=== PATIENT | male | born 1960 | race Hispanic/Latino ===

== ENCOUNTER 2018-06-11 19:49 | Inpatient (IN) | payer OTHER ==
[2018-06-11] MEDS ORDERED: ASPIRIN PO ONE (20:12)
[2018-06-11 20:49] LABS: Basophils # (Auto) 0.1 K/mm3 (0.0-0.1); Basophils % (Auto) 0.5 % (0.0-1.8); Eosinophils # (Auto) 0.1 K/mm3 (0.0-0.4); Eosinophils % (Auto) 0.5 % (0.0-4.3); Hematocrit 39.1 % (35.5-45.6); Hemoglobin 13.6 gm/dl (11.8-15.2); Lymphocytes # (Auto) 2.1 K/mm3 (1.2-5.4); Mean Corpuscular HGB Conc 35 % (32-34); Mean Corpuscular Hemoglobin 30 pg (28-32); Mean Corpuscular Volume 88 fl (84-94); Monocytes # (Auto) 1.4 K/mm3 (0.0-0.8); Monocytes % (Auto) 7.3 % (0.0-7.3); Platelet Count 261 K/mm3 (140-440); Red Blood Count 4.47 M/mm3 (3.65-5.03); Red Cell Distribution Width 13.7 % (13.2-15.2)
[2018-06-11 20:53] LABS: BUN/Creatinine Ratio 11; Blood Urea Nitrogen 10 mg/dL (9-20); Calcium 9.9 mg/dL (8.4-10.2); Hemolysis Index 3
[2018-06-12] MEDS ORDERED: HumuLIN R IV ONE (03:43)
[2018-06-12 05:10] LABS: Albumin 4.3 g/dL (3.9-5); Bilirubin,Direct 0.3 mg/dL (0-0.2)
[2018-06-12] MEDS ORDERED: NACL 0.9% 1000 ML IV ONE (06:26)
[2018-06-12] MEDS ORDERED: SUBLIMAZE IV ONE ×2 (06:27→09:40)
--- NOTE | 2018-06-12 06:28 | Emergency Department Report ---
ED General Adult HPI - General Chief complaint: Chest Pain Stated complaint: ABD PAIN Time Seen by Provider: 06/12/18 03:38 Source: patient, RN notes reviewed, old records reviewed Mode of arrival: Ambulatory Limitations: No Limitations - History of Present Illness Initial comments: This is a 58-year-old male who is unknown to this provider, has a past medical history of triple-vessel coronary artery disease, diabetes, hypertension and seizures. Presents to the ER with a complaint of epigastric and substernal chest pain. The pain is sharp. It is been present over the past 2 days. It increases with palpation and deep inspiration. It decreases with rest. No coughing. No DVT, pulmonary embolus risk factors. No urinary symptoms. No hematemesis or bright red blood per rectum. No urinary symptoms. Some cardiac risk stratification that he is aware of. -: Gradual Location: chest, abdomen Radiation: non-radiation Severity scale (0 -10): 7 Quality: stabbing, aching Consistency: constant Improves with: rest Worsens with: movement Associated Symptoms: chest pain, weakness. denies: confusion - Related Data Home Medications Medication Instructions Recorded Confirmed Last Taken OXcarbazepine [Trileptal] 300 mg PO BID 06/12/18 06/12/18 06/11/18 16:00 amLODIPine [Norvasc] 5 mg PO DAILY 06/12/18 06/12/18 06/10/18 Allergies Allergy/AdvReac Type Severity Reaction Status Date / Time codeine Allergy Unknown Verified 06/11/18 20:05 ED Review of Systems ROS: Stated complaint: ABD PAIN Other details as noted in HPI Constitutional: malaise. denies: fever Eyes: denies: eye discharge ENT: denies: epistaxis Respiratory: denies: shortness of breath Cardiovascular: chest pain Gastrointestinal: abdominal pain Genitourinary: denies: dysuria Musculoskeletal: denies: back pain Skin: denies: lesions Neurological: weakness Psychiatric: denies: anxiety ED Past Medical Hx - Past Medical History Hx Hypertension: Yes Hx Diabetes: Yes Hx Seizures: Yes Additional medical history: CAD - Social History Smoking Status: Never Smoker Substance Use Type: Alcohol - Medications Home Medications: Home Medications Medication Instructions Recorded Confirmed Last Taken Type OXcarbazepine [Trileptal] 300 mg PO BID 06/12/18 06/12/18 06/11/18 16:00 History amLODIPine [Norvasc] 5 mg PO DAILY 06/12/18 06/12/18 06/10/18 History ED Physical Exam - General Limitations: No Limitations General appearance: alert, in no apparent distress - Head Head exam: Present: atraumatic, normocephalic - Eye Eye exam: Present: normal appearance, EOMI. Absent: nystagmus - ENT ENT exam: Present: normal exam, normal orophraynx, mucous membranes moist, normal external ear exam - Neck Neck exam: Present: normal inspection. Absent: tenderness, meningismus - Respiratory Respiratory exam: Present: normal lung sounds bilaterally. Absent: respiratory distress - Cardiovascular Cardiovascular Exam: Present: normal rhythm, tachycardia, normal heart sounds. Absent: systolic murmur, diastolic murmur, rubs, gallop - GI/Abdominal GI/Abdominal exam: Present: soft, tenderness (there is epigastric and right upper quadrant tenderness. there is negative Tafoya sign. There is negative Rovsing sign), normal bowel sounds. Absent: distended, guarding, rebound, rigid , pulsatile mass - Rectal Rectal exam: Present: deferred - Extremities Exam Extremities exam: Present: normal inspection, full ROM, normal capillary refill , other (2+ pulses noted in the bilateral upper, lower extremities. Compartments soft. No long bony tenderness. The pelvis is stable.). Absent: pedal edema, joint swelling, calf tenderness - Back Exam Back exam: Present: normal inspection, full ROM. Absent: tenderness, CVA tenderness (R), paraspinal tenderness, vertebral tenderness - Neurological Exam Neurological exam: Present: alert, oriented X3, CN II-XII intact, other ( Extraocular movements intact. Tongue midline. No facial droop. Facial sensation intact to light touch in the V1, V2, V3 distribution bilaterally. 5 and 5 strength in 4 extremities.. Sensation is intact to light touch in 4 extremities.). Absent: motor sensory deficit - Psychiatric Psychiatric exam: Present: normal affect, normal mood - Skin Skin exam: Present: warm, dry, intact, normal color. Absent: rash ED Course Vital Signs 06/11/18 06/11/18 06/12/18 19:51 20:05 03:30 Temperature 98.3 F 98.2 F Pulse Rate 102 H 102 H 86 Respiratory 20 16 7 L Rate Blood Pressure 143/84 128/86 134/88 O2 Sat by Pulse 98 99 97 Oximetry 06/12/18 06/12/18 06/12/18 03:42 03:46 04:00 Temperature Pulse Rate 98 H 92 H 93 H Respiratory 16 12 13 Rate Blood Pressure 138/80 145/76 O2 Sat by Pulse 98 97 97 Oximetry 06/12/18 06/12/18 06/12/18 04:16 04:30 04:46 Temperature Pulse Rate 90 90 89 Respiratory 21 16 22 Rate Blood Pressure 139/87 134/88 135/85 O2 Sat by Pulse 96 98 97 Oximetry 06/12/18 06/12/18 06/12/18 05:00 05:16 05:30 Temperature Pulse Rate 94 H 96 H 94 H Respiratory 18 18 21 Rate Blood Pressure 130/84 129/87 130/84 O2 Sat by Pulse 97 97 97 Oximetry 06/12/18 06/12/18 06/12/18 05:46 06:00 06:16 Temperature Pulse Rate 92 H 92 H 99 H Respiratory 21 21 13 Rate Blood Pressure 128/81 125/83 129/86 O2 Sat by Pulse 97 97 98 Oximetry - Reevaluation(s) Reevaluation #1: 06/12/18 09:36 Differential diagnosis, including but not limited to: Acute coronary syndrome, GERD, gastritis, pancreatitis, cholecystitis, pneumonia, pulmonary embolus Assessment and plan: 58-year-old male with tachycardia, pleuritic chest pain, left axis deviation, left anterior fascicular block, low risk by well's criteria , non diagnostic laboratory studies with the exception of leukocytosis. CT scan of the chest is negative for acute disease. Also had right upper quadrant pain and tenderness. CT scan of the abdomen and pelvis suggest a cholecystitis. Patient is ruling in for systemic inflammatory response syndrome. There is a delay in fluid administration and a delay in antibiotic administration because patient had a prolonged wait time in the waiting room secondary to extreme volume/acuity/wait time in this emergency department yesterday. Nevertheless, he'll be treated according to the sepsis pathway with ceftriaxone and Flagyl and appropriate IV fluids. His pain was improved with fentanyl. Case was presents to the general surgeon on-call, Dr. Weems, who agrees to see the patient in consultation. Case presented to the Hospital physician, Dr. Andersen, who accepts the patient to medical service 06/12/18 09:44 ED Medical Decision Making - Lab Data Result diagrams: 06/11/18 20:27 06/11/18 20:27 Vital Signs 06/11/18 06/11/18 06/12/18 19:51 20:05 03:30 Temperature 98.3 F 98.2 F Pulse Rate 102 H 102 H 86 Respiratory 20 16 7 L Rate Blood Pressure 143/84 128/86 134/88 O2 Sat by Pulse 98 99 97 Oximetry 06/12/18 06/12/18 06/12/18 03:42 03:46 04:00 Temperature Pulse Rate 98 H 92 H 93 H Respiratory 16 12 13 Rate Blood Pressure 138/80 145/76 O2 Sat by Pulse 98 97 97 Oximetry 06/12/18 06/12/18 06/12/18 04:16 04:30 04:46 Temperature Pulse Rate 90 90 89 Respiratory 21 16 22 Rate Blood Pressure 139/87 134/88 135/85 O2 Sat by Pulse 96 98 97 Oximetry 06/12/18 06/12/18 06/12/18 05:00 05:16 05:30 Temperature Pulse Rate 94 H 96 H 94 H Respiratory 18 18 21 Rate Blood Pressure 130/84 129/87 130/84 O2 Sat by Pulse 97 97 97 Oximetry 06/12/18 06/12/18 06/12/18 05:46 06:00 06:16 Temperature Pulse Rate 92 H 92 H 99 H Respiratory 21 21 13 Rate Blood Pressure 128/81 125/83 129/86 O2 Sat by Pulse 97 97 98 Oximetry Lab Results 06/11/18 06/11/18 06/11/18 Range/Units 20:27 20:27 22:55 WBC 19.2 H (4.5-11.0) K/mm3 RBC 4.47 (3.65-5.03) M/mm3 Hgb 13.6 (11.8-15.2) gm/dl Hct 39.1 (35.5-45.6) % MCV 88 (84-94) fl MCH 30 (28-32) pg MCHC 35 H (32-34) % RDW 13.7 (13.2-15.2) % Plt Count 261 (140-440) K/mm3 Lymph % (Auto) 11.0 L (13.4-35.0) % [place] % (Auto) 7.3 (0.0-7.3) % Eos % (Auto) 0.5 (0.0-4.3) % Baso % (Auto) 0.5 (0.0-1.8) % Lymph # 2.1 (1.2-5.4) K/mm3 [place] # 1.4 H (0.0-0.8) K/mm3 Eos # 0.1 (0.0-0.4) K/mm3 Baso # 0.1 (0.0-0.1) K/mm3 Seg Neutrophils % 80.7 H (40.0-70.0) % Seg Neutrophils # 15.5 H (1.8-7.7) K/mm3 Sodium 135 L (137-145) mmol/L Potassium 4.2 (3.6-5.0) mmol/L Chloride 93.2 L (98-107) mmol/L Carbon Dioxide 26 (22-30) mmol/L Anion Gap 20 mmol/L BUN 10 (9-20) mg/dL Creatinine 0.9 (0.8-1.5) mg/dL Estimated GFR > 60 ml/min BUN/Creatinine Ratio 11 % Glucose 467 H (75-100) mg/dL POC Glucose (70-105) Lactic Acid (0.7-2.0) mmol/L Calcium 9.9 (8.4-10.2) mg/dL Total Bilirubin (0.1-1.2) mg/dL Direct Bilirubin (0-0.2) mg/dL Indirect Bilirubin mg/dL AST (5-40) units/L ALT (7-56) units/L Alkaline Phosphatase (35-129) units/L Total Creatine Kinase (55-170) units/L Troponin T < 0.010 < 0.010 (0.00-0.029) ng/mL NT-Pro-B Natriuret Pep (0-900) pg/mL Total Protein (6.3-8.2) g/dL Albumin (3.9-5) g/dL Albumin/Globulin Ratio % Lipase (13-60) units/L 06/12/18 06/12/18 06/12/18 Range/Units 02:44 03:42 03:46 WBC (4.5-11.0) K/mm3 RBC (3.65-5.03) M/mm3 Hgb (11.8-15.2) gm/dl Hct (35.5-45.6) % MCV (84-94) fl MCH (28-32) pg MCHC (32-34) % RDW (13.2-15.2) % Plt Count (140-440) K/mm3 Lymph % (Auto) (13.4-35.0) % [place] % (Auto) (0.0-7.3) % Eos % (Auto) (0.0-4.3) % Baso % (Auto) (0.0-1.8) % Lymph # (1.2-5.4) K/mm3 [place] # (0.0-0.8) K/mm3 Eos # (0.0-0.4) K/mm3 Baso # (0.0-0.1) K/mm3 Seg Neutrophils % (40.0-70.0) % Seg Neutrophils # (1.8-7.7) K/mm3 Sodium (137-145) mmol/L Potassium (3.6-5.0) mmol/L Chloride (98-107) mmol/L Carbon Dioxide (22-30) mmol/L Anion Gap mmol/L BUN (9-20) mg/dL Creatinine (0.8-1.5) mg/dL Estimated GFR ml/min BUN/Creatinine Ratio % Glucose (75-100) mg/dL POC Glucose 356 H (70-105) Lactic Acid (0.7-2.0) mmol/L Calcium (8.4-10.2) mg/dL Total Bilirubin 1.40 H (0.1-1.2) mg/dL Direct Bilirubin 0.3 H (0-0.2) mg/dL Indirect Bilirubin 1.1 mg/dL AST 12 (5-40) units/L ALT 12 (7-56) units/L Alkaline Phosphatase 64 (35-129) units/L Total Creatine Kinase 45 L (55-170) units/L Troponin T < 0.010 (0.00-0.029) ng/mL NT-Pro-B Natriuret Pep 41.86 (0-900) pg/mL Total Protein 6.5 (6.3-8.2) g/dL Albumin 4.3 (3.9-5) g/dL Albumin/Globulin Ratio 2.0 % Lipase 32 (13-60) units/L 06/12/18 06/12/18 06/12/18 Range/Units 06:40 06:42 08:57 WBC (4.5-11.0) K/mm3 RBC (3.65-5.03) M/mm3 Hgb (11.8-15.2) gm/dl Hct (35.5-45.6) % MCV (84-94) fl MCH (28-32) pg MCHC (32-34) % RDW (13.2-15.2) % Plt Count (140-440) K/mm3 Lymph % (Auto) (13.4-35.0) % [place] % (Auto) (0.0-7.3) % Eos % (Auto) (0.0-4.3) % Baso % (Auto) (0.0-1.8) % Lymph # (1.2-5.4) K/mm3 [place] # (0.0-0.8) K/mm3 Eos # (0.0-0.4) K/mm3 Baso # (0.0-0.1) K/mm3 Seg Neutrophils % (40.0-70.0) % Seg Neutrophils # (1.8-7.7) K/mm3 Sodium (137-145) mmol/L Potassium (3.6-5.0) mmol/L Chloride (98-107) mmol/L Carbon Dioxide (22-30) mmol/L Anion Gap mmol/L BUN (9-20) mg/dL Creatinine (0.8-1.5) mg/dL Estimated GFR ml/min BUN/Creatinine Ratio % Glucose (75-100) mg/dL POC Glucose 325 H (70-105) Lactic Acid 2.90 H* 1.90 (0.7-2.0) mmol/L Calcium (8.4-10.2) mg/dL Total Bilirubin (0.1-1.2) mg/dL Direct Bilirubin (0-0.2) mg/dL Indirect Bilirubin mg/dL AST (5-40) units/L ALT (7-56) units/L Alkaline Phosphatase (35-129) units/L Total Creatine Kinase (55-170) units/L Troponin T (0.00-0.029) ng/mL NT-Pro-B Natriuret Pep (0-900) pg/mL Total Protein (6.3-8.2) g/dL Albumin (3.9-5) g/dL Albumin/Globulin Ratio % Lipase (13-60) units/L - EKG Data -: EKG Interpreted by Me - EKG Data When compared to previous EKG there are: previous EKG unavailable 06/12/18 09:40 Normal sinus, 97 bpm, left axis deviation, incomplete right bundle-branch block , left anterior fascicular block, QTC prolonged, abnormal EKG, not a stemi - Radiology Data Radiology results: report reviewed, image reviewed X-ray CT scan of the chest is negative for acute disease. CT scan of the abdomen and pelvis suggest cholecystitis. Critical care attestation.: If time is entered above; I have spent that time in minutes in the direct care of this critically ill patient, excluding procedure time. ED Disposition Clinical Impression: SIRS (systemic inflammatory response syndrome) Chest pain Qualifiers: Chest pain type: other chest pain Qualified Code(s): R07.89 - Other chest pain Disposition: OP ADMIT IP TO THIS HOSP Is pt being admited?: Yes Condition: Good Instructions: Chest Pain (ED) Referrals: PRIMARY CARE, [Primary Care Provider] - 3-5 Days
[2018-06-12] MEDS ORDERED: ROCEPHIN/NS 1 GM/50 ML 1 GM/50 ML BAG IV NR (07:20)
--- NOTE | 2018-06-12 07:38 | XRay Report ---
ROUTINE CHEST, TWO VIEWS: HISTORY: chest pain, STIR S.. The trachea, heart, mediastinal contour, and lung [place] are unremarkable. Mild scoliosis and degenerative changes in the thoracic spine are noted. IMPRESSION: No acute cardiopulmonary process identified.
--- NOTE | 2018-06-12 09:02 | Cat Scan Report ---
CTA CHEST: HISTORY: chest pain. COMPARISON: none. TECHNIQUE: Helical CT in 1.25mm intervals following IV contrast. Pulmonary embolus protocol. Sagittal and coronal reformatted images. Rotational MIP images. FINDINGS: Contrast bolus is satisfactory. No pulmonary embolus is identified. Thyroid gland: There are a few tiny thyroid hypodensities bilaterally which probably represents cysts. Tracheobronchial tree: Normal. Esophagus: Normal. Heart: Normal. Pericardium: Normal. Mediastinum: Normal. Lung Pires: Normal. Pleural Spaces: Normal. Musculoskeletal: Mild scoliosis and thoracic spondylosis are noted. IMPRESSION: No evidence for pulmonary embolus. Unremarkable CT chest with contrast.
--- NOTE | 2018-06-12 09:06 | Cat Scan Report ---
CT ABDOMEN PELVIS WITH CONTRAST: HISTORY: abdominal pain. COMPARISON: none. TECHNIQUE: Helical CT in 1.25mm intervals following IV contrast. Sagittal and coronal reconstructions. FINDINGS: Liver: Normal. Biliary system: The gallbladder is mildly dilated with small surrounding pericholecystic fluid. No calcified gallstones are identified. The common bile duct and intrahepatic ducts are normal caliber. Pancreas: Normal. Spleen: Normal. Kidneys/ureters/bladder: There are a few scattered simple renal cysts measuring up to 2 cm. No hydronephrosis or hypervascular mass. The ureters and bladder are unremarkable. Borderline enlargement of the prostate gland. Adrenal glands: Normal. Aorta: Mild distal calcifications. No aneurysm, stenosis or dissection. Intestines: Unremarkable given no oral contrast was administered. Appendix: Not identified, correlate with surgical history. Pelvic viscera: Normal. Ascites: None. Adenopathy: None. Musculoskeletal: Mild lumbar spondylosis. Small left inguinal hernia containing fat. IMPRESSION: Findings concerning for acute cholecystitis. Consider correlation with ultrasound and possibly HIDA scan.
[2018-06-12] MEDS ORDERED: ROCEPHIN/NS 1 GM/50 ML 1 GM/50 ML BAG IV ONE (09:25)
[2018-06-12 09:59] LABS: Bilirubin,Urine NEG (Negative); Blood,Urine NEG (Negative); Color,Urine Yellow (Yellow); Mucus,Urine FEW /HPF; Protein,Urine <15 mg/dL mg/dL (Negative); Urobilinogen,Urine < 2.0 mg/dL (<2.0)
[2018-06-12] MEDS ORDERED: FLAGYL 500 MG/100 ML 500 MG/100 ML BAG IV SCH (10:00)
--- NOTE | 2018-06-12 10:59 | Ultrasound Report ---
ULTRASOUND ABDOMEN LIMITED: TECHNIQUE: Transabdominal ultrasound with color Doppler interrogation. HISTORY: right upper quadrant abdominal pain, cholecystitis. COMPARISON: CT abdomen pelvis with contrast performed the same day. FINDINGS: LIVER: Normal. BILIARY SYSTEM: The gallbladder is mildly dilated with wall thickening measuring up to 7 mm. The gallbladder is packed with non-shadowing debris consistent with sludge. No shadowing gallstones are identified. Small pericholecystic fluid. The CBD measures 4 mm. The technologist noted a positive Tafoya's sign. PANCREAS: Normal. RIGHT KIDNEY: 12 cm in length. 2 right renal cysts are identified measuring 2.1 cm and 2.4 cm. PROXIMAL AORTA: Normal. ASCITES: None. IMPRESSION: Findings consistent with acute cholecystitis. See above.
[2018-06-12] MEDS ORDERED: NACL 0.9% 1000 ML 1,000 ML ONE ×2 (11:22→12:57)
[2018-06-12] MEDS ORDERED: APRESOLINE IV PRN (11:44)
[2018-06-12] MEDS ORDERED: D50W (25GM) Syringe IV PRN (11:45)
--- NOTE | 2018-06-12 11:48 | History and Physical Report ---
History of Present Illness Date of examination: 06/12/18 Chief complaint: 'Am in pain" History of present illness: Patient is a 58 y/o male with poorly controlled DM II, HTN, seizure disorder, 3 Vessel CAD, who has been out of his Metformin for more than 1 month, presented to [facility] with c/o 3 day h/o RUQ abd pain, 9/10 , sharp, worsened by deep breathing , with radiation to the Epigastrum, temporarily relieved by IV Fentanyl. Associated with Nausea, but no vomiting. Patient reports h/o CAD but not on any Cholesterol meds. Intermittently takes Aspirin. Denies fever, but admitted to generalized weakness. ER Course CT abd pelvis Abd Ultrasound WBC of 19k Multiple doses of Fentanyl ordered Surgery consulted by ED. IV abx given Referred for admission to the hospital medicine service. Past History Past Medical History: CAD, diabetes, hypertension, seizures Past Surgical History: Other (tooth extraction as a teenager.) Medications and Allergies Allergies Allergy/AdvReac Type Severity Reaction Status Date / Time codeine Allergy Unknown Verified 06/11/18 20:05 Home Medications Medication Instructions Recorded Confirmed Last Taken Type OXcarbazepine [Trileptal] 300 mg PO BID 06/12/18 06/12/18 06/11/18 16:00 History amLODIPine [Norvasc] 5 mg PO DAILY 06/12/18 06/12/18 06/10/18 History Active Meds: Active Medications Dextrose (D50w (25gm) Syringe) 50 ml IV PRN PRN PRN Reason: Hypoglycemia Heparin Sodium (Porcine) (Heparin) 5,000 unit SUB-Q Q8HR OSCAR Hydralazine HCl (Apresoline) 5 mg IV Q30MIN PRN PRN Reason: Blood Pressure Metronidazole (Flagyl 500 Mg/100 Ml) 500 mg in 100 mls @ 200 mls/hr IV ONCE OSCAR ; Protocol Piperacillin Sod/Tazobactam Sod (Zosyn/Ns 4.5gm/100ml) 4.5 gm in 100 mls @ 200 mls/hr IV Q8HR OSCAR; Protocol Levetiracetam 750 mg/ Dextrose 107.5 mls @ 400 mls/hr IV Q12H OSCAR Levofloxacin/Dextrose (Levaquin 750mg/150ml) 750 mg in 150 mls @ 100 mls/hr IV Q24HR OSCAR; Protocol Insulin Glargine (Lantus) 10 units SUB-Q QHS OSCAR Insulin Human Lispro (Humalog) 0 unit SUB-Q Q6HR OSCAR; Protocol Morphine Sulfate (Morphine) 2 mg IV Q4H PRN PRN Reason: Pain, Moderate (4-6) Review of Systems Constitutional: anorexia, weakness, poor appetite Ears, nose, mouth and throat: no nasal congestion, no bleeding gums, no dental pain, no mouth pain, no dysphagia, no hoarseness Cardiovascular: chest pain, high blood pressure, no palpitations, no rapid/ irregular heart beat, no edema, no claudication, no phlebitis Respiratory: pain on inspiration, no shortness of breath, no congestion, no pleurisy, no pain Gastrointestinal: abdominal pain, nausea, diarrhea, loss of appetite Genitourinary Male: no hematuria, no urinary frequency, no urinary hesitancy, no decreased libido, no testicular pain, no difficulties fathering child Rectal: no bleeding, no hemorrhoids Musculoskeletal: no neck stiffness, no shooting arm pain, no muscle weakness, no gait dysfunction Integumentary: no rash, no redness, no lesions, no darkening of skin Neurological: no transient paralysis, no numbness, no tingling, no headaches, no migraines, no convulsions Psychiatric: no memory loss, no sleep disturbances, no hypersomnia, no change in appetite, no difficulties concentrating Endocrine: no cold intolerance, no heat intolerance, no deepening of the voice, no thyroid mass, no palpatations Hematologic/Lymphatic: no easy bruising, no lymphedema Allergic/Immunologic: no allergic rhinitis, no persistent infections, no anaphylaxis Exam - Constitutional Vitals: Temp Pulse Resp BP Pulse Ox 98.7 F 90 11 L 147/81 97 06/12/18 09:00 06/12/18 11:30 06/12/18 11:30 06/12/18 11:30 06/12/18 11:30 General appearance: Present: mild distress, well-nourished - EENT Eyes: Present: PERRL, EOM intact, scleral icterus ENT: hearing intact, clear oral mucosa - Neck Neck: Present: supple, normal ROM - Respiratory Respiratory: bilateral: CTA, negative: rales, rhonchi, wheezing - Cardiovascular Rhythm: regular Heart Sounds: Present: S1 & S2 - Extremities Extremities: no ischemia, pulses intact, pulses symmetrical, No edema Peripheral Pulses: within normal limits - Abdominal General gastrointestinal: Present: soft, tender (RUQ tenderness, with Tafoya's sign), normal bowel sounds Male genitourinary: Present: deferred - Rectal Rectal Exam: deferred - Integumentary Integumentary: Present: clear, warm, dry - Musculoskeletal Musculoskeletal: strength equal bilaterally, generalized weakness - Psychiatric Psychiatric: appropriate mood/affect, intact judgment & insight, memory intact - Neurologic Neurologic: CNII-XII intact, moves all extremities - Allied Health Allied health notes reviewed: nursing Results - Labs CBC & Chem 7: 06/11/18 20:27 06/11/18 20:27 Labs: Laboratory Last Values WBC 19.2 K/mm3 (4.5-11.0) H 06/11/18 20:27 RBC 4.47 M/mm3 (3.65-5.03) 06/11/18 20:27 Hgb 13.6 gm/dl (11.8-15.2) 06/11/18 20:27 Hct 39.1 % (35.5-45.6) 06/11/18 20:27 MCV 88 fl (84-94) 06/11/18 20:27 MCH 30 pg (28-32) 06/11/18 20:27 MCHC 35 % (32-34) H 06/11/18 20:27 RDW 13.7 % (13.2-15.2) 06/11/18 20:27 Plt Count 261 K/mm3 (140-440) 06/11/18 20:27 Lymph % (Auto) 11.0 % (13.4-35.0) L 06/11/18 20:27 [place] % (Auto) 7.3 % (0.0-7.3) 06/11/18 20:27 Eos % (Auto) 0.5 % (0.0-4.3) 06/11/18 20:27 Baso % (Auto) 0.5 % (0.0-1.8) 06/11/18 20:27 Lymph # 2.1 K/mm3 (1.2-5.4) 06/11/18 20:27 [place] # 1.4 K/mm3 (0.0-0.8) H 06/11/18 20:27 Eos # 0.1 K/mm3 (0.0-0.4) 06/11/18 20:27 Baso # 0.1 K/mm3 (0.0-0.1) 06/11/18 20:27 Seg Neutrophils % 80.7 % (40.0-70.0) H 06/11/18 20:27 Seg Neutrophils # 15.5 K/mm3 (1.8-7.7) H 06/11/18 20:27 Sodium 135 mmol/L (137-145) L 06/11/18 20:27 Potassium 4.2 mmol/L (3.6-5.0) 06/11/18 20:27 Chloride 93.2 mmol/L (98-107) L 06/11/18 20:27 Carbon Dioxide 26 mmol/L (22-30) 06/11/18 20:27 Anion Gap 20 mmol/L 06/11/18 20:27 BUN 10 mg/dL (9-20) 06/11/18 20:27 Creatinine 0.9 mg/dL (0.8-1.5) 06/11/18 20:27 Estimated GFR > 60 ml/min 06/11/18 20:27 BUN/Creatinine Ratio 11 % 06/11/18 20:27 Glucose 467 mg/dL (75-100) H 06/11/18 20:27 POC Glucose 325 (70-105) H 06/12/18 06:42 Lactic Acid 1.90 mmol/L (0.7-2.0) 06/12/18 08:57 Calcium 9.9 mg/dL (8.4-10.2) 06/11/18 20:27 Total Bilirubin 1.40 mg/dL (0.1-1.2) H 06/12/18 03:46 Direct Bilirubin 0.3 mg/dL (0-0.2) H 06/12/18 03:46 Indirect Bilirubin 1.1 mg/dL 06/12/18 03:46 AST 12 units/L (5-40) 06/12/18 03:46 ALT 12 units/L (7-56) 06/12/18 03:46 Alkaline Phosphatase 64 units/L (35-129) 06/12/18 03:46 Total Creatine Kinase 45 units/L (55-170) L 06/12/18 03:46 Troponin T < 0.010 ng/mL (0.00-0.029) 06/12/18 02:44 NT-Pro-B Natriuret Pep 41.86 pg/mL (0-900) 06/12/18 03:46 Total Protein 6.5 g/dL (6.3-8.2) 06/12/18 03:46 Albumin 4.3 g/dL (3.9-5) 06/12/18 03:46 Albumin/Globulin Ratio 2.0 % 06/12/18 03:46 Lipase 32 units/L (13-60) 06/12/18 03:46 Urine Color Yellow (Yellow) 06/12/18 09:40 Urine Turbidity Clear (Clear) 06/12/18 09:40 Urine pH 5.0 (5.0-7.0) 06/12/18 09:40 Ur Specific [place] 1.040 (1.003-1.030) H 06/12/18 09:40 Urine Protein <15 mg/dl mg/dL (Negative) 06/12/18 09:40 Urine Glucose (UA) >=500 mg/dL (Negative) 06/12/18 09:40 Urine Ketones Tr mg/dL (Negative) 06/12/18 09:40 Urine Blood Neg (Negative) 06/12/18 09:40 Urine Nitrite Neg (Negative) 06/12/18 09:40 Urine Bilirubin Neg (Negative) 06/12/18 09:40 Urine Urobilinogen < 2.0 mg/dL (<2.0) 06/12/18 09:40 Ur Leukocyte Esterase Neg (Negative) 06/12/18 09:40 Urine WBC (Auto) 2.0 /HPF (0.0-6.0) 06/12/18 09:40 Urine RBC (Auto) 2.0 /HPF (0.0-6.0) 06/12/18 09:40 Urine Mucus Few /HPF 06/12/18 09:40 - Imaging and Cardiology Chest x-ray: report reviewed CT scan - abdomen: report reviewed US - abdomen: report reviewed Assessment and Plan Assessment and plan: Assessment Sepsis 2/2 Acute Cholecystitis Acute Cholecystitis Uncontrolled DM II with hyperglycemia HTN, essen, chronic Seizure disorder Noncompliant with Metformin 3 Vessel CAD RUQ pain Plan admit inpt to med surg with remote Tele monitoring HbAI1 Optimal pain control IV abx am labs NPO status IV Keppra while NPO to restart home AED upon d/c Surgery consult, done in the ED Close monitoring Cardio consult lipid panel Will need high intensity Lipitor 80mg po qd prior to d/c d/w pt, questions were answered to the best of my ability Further pt mgt per hospital course. d/w RN More than 35 mins spent Advance Directives: No VTE prophylaxis?: Chemical Plan of care discussed with patient/family: Yes
[2018-06-12] MEDS ORDERED: ZOFRAN ONE (13:22)
[2018-06-12] MEDS: KEPPRA 750 MG in D5W 100 ML IV SCH (13:25)
[2018-06-12 13:31] LABS: Chol/HDL Ratio 3.31 %
--- NOTE | 2018-06-12 13:36 | Consultation ---
History of Present Illness Consult date: 06/12/18 Chief complaint: Abdominal pain - History of present illness History of present illness: 58-year-old male with a past medical history of CAD, seizure disorder, diabetes presents to the emergency room with complaints of right upper quadrant abdominal pain. The pain is sharp, started in the epigastrium and radiated to the right upper quadrant and now to bilateral shoulder blades. He states the pain started 3 days ago and has gradually gotten worse, prompting his visit to the emergency room. He has never had pain like this in the past. He states he had a ham sandwich for lunch and the pain started shortly thereafter. The pain is associated with nausea but no vomiting. He denies fevers, chills. He is having loose stools, 3-4 per day. No sick contacts or recent travel. The abdominal pain is made better with the pain medications in the emergency room, but this will leave only last for about 10 minutes. Past History Past Medical History: CAD, diabetes, hypertension, hyperlipidemia, seizures Past Surgical History: Other (wisdom teeth extraction) Social history: alcohol abuse (social), full code. denies: smoking, prescription drug abuse, IV drug use Family history: CAD Medications and Allergies Allergies Allergy/AdvReac Type Severity Reaction Status Date / Time codeine Allergy Unknown Verified 06/11/18 20:05 Home Medications Medication Instructions Recorded Confirmed Last Taken Type OXcarbazepine [Trileptal] 300 mg PO BID 06/12/18 06/12/18 06/11/18 16:00 History amLODIPine [Norvasc] 5 mg PO DAILY 06/12/18 06/12/18 06/10/18 History Active Meds: Active Medications Dextrose (D50w (25gm) Syringe) 50 ml IV PRN PRN PRN Reason: Hypoglycemia Heparin Sodium (Porcine) (Heparin) 5,000 unit SUB-Q Q8HR OSACR Hydralazine HCl (Apresoline) 5 mg IV Q30MIN PRN PRN Reason: Blood Pressure Metronidazole (Flagyl 500 Mg/100 Ml) 500 mg in 100 mls @ 200 mls/hr IV ONCE OSCAR ; Protocol Piperacillin Sod/Tazobactam Sod (Zosyn/Ns 4.5gm/100ml) 4.5 gm in 100 mls @ 200 mls/hr IV Q8HR OSCAR; Protocol Levetiracetam 750 mg/ Dextrose 107.5 mls @ 400 mls/hr IV Q12H OSCAR Levofloxacin/Dextrose (Levaquin 750mg/150ml) 750 mg in 150 mls @ 100 mls/hr IV Q24HR OSCAR; Protocol Insulin Glargine (Lantus) 10 units SUB-Q QHS OSCAR Insulin Human Lispro (Humalog) 0 unit SUB-Q Q6HR OSCAR; Protocol Morphine Sulfate (Morphine) 2 mg IV Q4H PRN PRN Reason: Pain, Moderate (4-6) Review of Systems All systems: negative (10 point review systems was performed and negative except for that listed in HPI) Exam Vital Signs Temp Pulse Resp BP Pulse Ox 98.3 F 102 H 20 143/84 98 06/11/18 19:51 06/11/18 19:51 06/11/18 19:51 06/11/18 19:51 06/11/18 19:51 Narrative exam: Gen.: Awake, alert, oriented 3. Appears to be uncomfortable ENT: No scleral icterus or conjunctival pallor CV: S1, S2 present Respiratory: No audible wheezes Abdomen: Soft, nondistended, positive tenderness to palpation in the epigastrium , RUQ. + Voluntary guarding. No rebound no rigidity Extremities: No clubbing, cyanosis, edema Results - Labs 06/11/18 20:27 06/11/18 20:27 Abnormal lab results 06/11/18 06/11/18 06/12/18 Range/Units 20:27 20:27 03:42 WBC 19.2 H (4.5-11.0) K/mm3 MCHC 35 H (32-34) % Lymph % (Auto) 11.0 L (13.4-35.0) % [place] # 1.4 H (0.0-0.8) K/mm3 Seg Neutrophils % 80.7 H (40.0-70.0) % Seg Neutrophils # 15.5 H (1.8-7.7) K/mm3 Sodium 135 L (137-145) mmol/L Chloride 93.2 L (98-107) mmol/L Glucose 467 H (75-100) mg/dL POC Glucose 356 H (70-105) Hemoglobin A1c (4-6) % Lactic Acid (0.7-2.0) mmol/L Total Bilirubin (0.1-1.2) mg/dL Direct Bilirubin (0-0.2) mg/dL Total Creatine Kinase (55-170) units/L Ur Specific [place] (1.003-1.030) 06/12/18 06/12/18 06/12/18 Range/Units 03:46 06:40 06:42 WBC (4.5-11.0) K/mm3 MCHC (32-34) % Lymph % (Auto) (13.4-35.0) % [place] # (0.0-0.8) K/mm3 Seg Neutrophils % (40.0-70.0) % Seg Neutrophils # (1.8-7.7) K/mm3 Sodium (137-145) mmol/L Chloride (98-107) mmol/L Glucose (75-100) mg/dL POC Glucose 325 H (70-105) Hemoglobin A1c (4-6) % Lactic Acid 2.90 H* (0.7-2.0) mmol/L Total Bilirubin 1.40 H (0.1-1.2) mg/dL Direct Bilirubin 0.3 H (0-0.2) mg/dL Total Creatine Kinase 45 L (55-170) units/L Ur Specific [place] (1.003-1.030) 06/12/18 06/12/18 Range/Units 09:40 12:49 WBC (4.5-11.0) K/mm3 MCHC (32-34) % Lymph % (Auto) (13.4-35.0) % [place] # (0.0-0.8) K/mm3 Seg Neutrophils % (40.0-70.0) % Seg Neutrophils # (1.8-7.7) K/mm3 Sodium (137-145) mmol/L Chloride (98-107) mmol/L Glucose (75-100) mg/dL POC Glucose (70-105) Hemoglobin A1c 9.8 H (4-6) % Lactic Acid (0.7-2.0) mmol/L Total Bilirubin (0.1-1.2) mg/dL Direct Bilirubin (0-0.2) mg/dL Total Creatine Kinase (55-170) units/L Ur Specific [place] 1.040 H (1.003-1.030) Diabetes panel 06/11/18 06/12/18 06/12/18 Range/Units 20:27 03:46 12:49 Sodium 135 L (137-145) mmol/L Potassium 4.2 (3.6-5.0) mmol/L Chloride 93.2 L (98-107) mmol/L Carbon Dioxide 26 (22-30) mmol/L BUN 10 (9-20) mg/dL Creatinine 0.9 (0.8-1.5) mg/dL Glucose 467 H (75-100) mg/dL Hemoglobin A1c 9.8 H (4-6) % Calcium 9.9 (8.4-10.2) mg/dL AST 12 (5-40) units/L ALT 12 (7-56) units/L Alkaline Phosphatase 64 (35-129) units/L Total Protein 6.5 (6.3-8.2) g/dL Albumin 4.3 (3.9-5) g/dL Triglycerides (2-149) mg/dL HDL Cholesterol (40-59) mg/dL 06/12/18 Range/Units 12:49 Sodium (137-145) mmol/L Potassium (3.6-5.0) mmol/L Chloride (98-107) mmol/L Carbon Dioxide (22-30) mmol/L BUN (9-20) mg/dL Creatinine (0.8-1.5) mg/dL Glucose (75-100) mg/dL Hemoglobin A1c (4-6) % Calcium (8.4-10.2) mg/dL AST (5-40) units/L ALT (7-56) units/L Alkaline Phosphatase (35-129) units/L Total Protein (6.3-8.2) g/dL Albumin (3.9-5) g/dL Triglycerides 83 (2-149) mg/dL HDL Cholesterol 44 (40-59) mg/dL Calcium panel 06/11/18 06/12/18 Range/Units 20:27 03:46 Calcium 9.9 (8.4-10.2) mg/dL Albumin 4.3 (3.9-5) g/dL Pituitary panel 06/11/18 Range/Units 20:27 Sodium 135 L (137-145) mmol/L Potassium 4.2 (3.6-5.0) mmol/L Chloride 93.2 L (98-107) mmol/L Carbon Dioxide 26 (22-30) mmol/L BUN 10 (9-20) mg/dL Creatinine 0.9 (0.8-1.5) mg/dL Glucose 467 H (75-100) mg/dL Calcium 9.9 (8.4-10.2) mg/dL Adrenal panel 06/11/18 06/12/18 Range/Units 20:27 03:46 Sodium 135 L (137-145) mmol/L Potassium 4.2 (3.6-5.0) mmol/L Chloride 93.2 L (98-107) mmol/L Carbon Dioxide 26 (22-30) mmol/L BUN 10 (9-20) mg/dL Creatinine 0.9 (0.8-1.5) mg/dL Glucose 467 H (75-100) mg/dL Calcium 9.9 (8.4-10.2) mg/dL Total Bilirubin 1.40 H (0.1-1.2) mg/dL AST 12 (5-40) units/L ALT 12 (7-56) units/L Alkaline Phosphatase 64 (35-129) units/L Total Protein 6.5 (6.3-8.2) g/dL Albumin 4.3 (3.9-5) g/dL - Imaging CT scan - abdomen: report reviewed, image reviewed CT scan - pelvis: report reviewed, image reviewed US - abdomen: report reviewed, image reviewed Assessment and Plan 58 yo M with 1. acute cholecystitis 2. sepsis secondary to #1 3. diabetes Plan: 1. admit to hospitalist service 2. NPO except meds/ice chips 3. IVF 4. IV abx - zosyn. ceftriaxone and flagyl given in ER 5. pain and nausea control prn 6. repeat CBC, CMP, bilis in am 7. Request cardiology consult for preop risk assessment. Patient has cardiac history, severe 3 vessel cardiac disease 8. DVT ppx 9. ok to resume PO anti seizure meds with sip of water 10. eventual cholecystectomy this admission Thank you for this consultation, please call with questions or concerns.
[2018-06-12] MEDS: HEPARIN SUB-Q SCH ×2 (13:42→21:06)
[2018-06-12] MEDS: MORPHINE IV PRN ×3 (13:45→23:31)
[2018-06-12] MEDS: HumaLOG SUB-Q SCH ×2 (13:54→18:30)
[2018-06-12] MEDS ORDERED: NACL 0.9% 1000 ML 1,000 ML IV SCH (15:00)
[2018-06-12] MEDS: ZOSYN/NS 4.5GM/100ML 4.5 GM/100 ML VIAL IV SCH ×2 (16:00→21:03)
[2018-06-12] MEDS: LANTUS SUB-Q SCH (21:12)
[2018-06-12] MEDS: ZOFRAN IV PRN (21:22)
[2018-06-13] MEDS: HumaLOG SUB-Q SCH ×4 (00:10→17:53)
[2018-06-13] MEDS: KEPPRA 750 MG in D5W 100 ML IV SCH ×2 (00:59→12:30)
[2018-06-13] MEDS: REGLAN IV PRN ×2 (01:00→10:08)
[2018-06-13] MEDS: HEPARIN SUB-Q SCH ×3 (05:07→22:22)
[2018-06-13] MEDS: ZOSYN/NS 4.5GM/100ML 4.5 GM/100 ML VIAL IV SCH ×3 (05:07→22:21)
[2018-06-13] MEDS: ZOFRAN IV PRN ×2 (05:16→20:20)
[2018-06-13] MEDS: MORPHINE IV PRN ×2 (05:16→20:27)
[2018-06-13 06:28] LABS: Basophils % (Auto) 0.2 % (0.0-1.8); Hematocrit 34.7 % (35.5-45.6); Hemoglobin 12.1 gm/dl (11.8-15.2); Lymphocytes # (Auto) 1.2 K/mm3 (1.2-5.4); Lymphocytes % (Auto) 5.9 % (13.4-35.0); Mean Corpuscular HGB Conc 35 % (32-34); Mean Corpuscular Hemoglobin 31 pg (28-32); Mean Corpuscular Volume 88 fl (84-94); Monocytes # (Auto) 1.4 K/mm3 (0.0-0.8); Monocytes % (Auto) 7.2 % (0.0-7.3); Platelet Count 198 K/mm3 (140-440); Red Blood Count 3.96 M/mm3 (3.65-5.03); Red Cell Distribution Width 13.3 % (13.2-15.2)
[2018-06-13 07:47] LABS: Alanine Aminotransferase 56 units/L (7-56); Albumin 3.3 g/dL (3.9-5); BUN/Creatinine Ratio 11; Bilirubin,Direct 0.4 mg/dL (0-0.2); Blood Urea Nitrogen 8 mg/dL (9-20); Calcium 8.6 mg/dL (8.4-10.2); Hemolysis Index 0
--- NOTE | 2018-06-13 09:23 | Consultation ---
History of Present Illness Consult date: 06/13/18 Consult reason: pre op evaluation History of present illness: This is a 58 year old male who presented with nausea, vomiting and abdominal pain admitted with sepsis and acute cholecystitis. He is awaiting gallbladder surgery. A consultation was requested for preoperative cardiac assessment. The patient has a history of Diabetes. There is no prior cardiac history or recent workup. He has no chest pain, no shortness of breath, no palpitations and no lower extremity edema. His 12 lead ECG is a sinus rhythm with left anterior fascicular block. Past History Past Medical History: CAD, diabetes, hypertension, seizures Past Surgical History: Other (tooth extraction as a teenager.) Social history: alcohol abuse (social), full code. denies: smoking, prescription drug abuse, IV drug use Family history: CAD Medications and Allergies Allergies Allergy/AdvReac Type Severity Reaction Status Date / Time codeine Allergy Unknown Verified 06/11/18 20:05 Home Medications Medication Instructions Recorded Confirmed Last Taken Type OXcarbazepine [Trileptal] 300 mg PO BID 06/12/18 06/12/18 06/11/18 16:00 History amLODIPine [Norvasc] 5 mg PO DAILY 06/12/18 06/12/18 06/10/18 History Active Meds: Active Medications Dextrose (D50w (25gm) Syringe) 50 ml IV PRN PRN PRN Reason: Hypoglycemia Heparin Sodium (Porcine) (Heparin) 5,000 unit SUB-Q Q8HR OSCAR Last Admin: 06/13/18 05:07 Dose: 5,000 unit Hydralazine HCl (Apresoline) 5 mg IV Q30MIN PRN PRN Reason: Blood Pressure Piperacillin Sod/Tazobactam Sod (Zosyn/Ns 4.5gm/100ml) 4.5 gm in 100 mls @ 200 mls/hr IV Q8HR OSCAR; Protocol Last Admin: 06/13/18 05:07 Dose: 200 mls/hr Levetiracetam 750 mg/ Dextrose 107.5 mls @ 400 mls/hr IV Q12H OSCAR Last Admin: 06/13/18 00:59 Dose: 400 mls/hr Potassium Chloride/Sodium Chloride (Ns/Kcl 20meq) 20 meq in 1,000 mls @ 125 mls /hr IV DIRECT OSCAR Potassium Chloride (Kcl 10meq/100ml) 10 meq in 100 mls @ 100 mls/hr IV Q1H OSCAR Stop: 06/13/18 12:59 Insulin Glargine (Lantus) 10 units SUB-Q QHS OSCAR Last Admin: 06/12/18 21:12 Dose: 10 units Insulin Human Lispro (Humalog) 0 unit SUB-Q Q6HR OSCAR; Protocol Last Admin: 06/13/18 05:15 Dose: 6 unit Metoclopramide HCl (Reglan) 10 mg IV Q6H PRN PRN Reason: Nausea And Vomiting Last Admin: 06/13/18 01:00 Dose: 10 mg Morphine Sulfate (Morphine) 2 mg IV Q4H PRN PRN Reason: Pain, Moderate (4-6) Last Admin: 06/12/18 13:45 Dose: 2 mg Morphine Sulfate (Morphine) 4 mg IV Q4H PRN PRN Reason: Pain , Severe (7-10) Last Admin: 06/13/18 05:16 Dose: 4 mg Ondansetron HCl (Zofran) 4 mg IV Q6H PRN PRN Reason: Nausea And Vomiting Last Admin: 06/13/18 05:16 Dose: 4 mg Physical Examination Vital Signs Temp Pulse Resp BP Pulse Ox 98.3 F 102 H 20 143/84 98 06/11/18 19:51 06/11/18 19:51 06/11/18 19:51 06/11/18 19:51 06/11/18 19:51 General appearance: no acute distress HEENT: Positive: PERRL Cardiac: Positive: Reg Rate and Rhythm Lungs: Positive: Decreased Breath Sounds Results 06/13/18 05:28 06/13/18 05:28 Cardiac Enzymes 06/13/18 Range/Units 05:28 AST 58 H (5-40) units/L Lipids 06/12/18 Range/Units 12:49 Triglycerides 83 (2-149) mg/dL Cholesterol 146 (50-199) mg/dL HDL Cholesterol 44 (40-59) mg/dL Cholesterol/HDL Ratio 3.31 % CBC 06/13/18 Range/Units 05:28 WBC 20.1 H (4.5-11.0) K/mm3 RBC 3.96 (3.65-5.03) M/mm3 Hgb 12.1 (11.8-15.2) gm/dl Hct 34.7 L (35.5-45.6) % Plt Count 198 (140-440) K/mm3 Lymph # 1.2 (1.2-5.4) K/mm3 [place] # 1.4 H (0.0-0.8) K/mm3 Eos # 0.0 (0.0-0.4) K/mm3 Baso # 0.0 (0.0-0.1) K/mm3 Comprehensive Metabolic Panel 06/13/18 Range/Units 05:28 Sodium 139 (137-145) mmol/L Potassium 3.3 L D (3.6-5.0) mmol/L Chloride 100.1 (98-107) mmol/L Carbon Dioxide 25 (22-30) mmol/L BUN 8 L (9-20) mg/dL Creatinine 0.7 L (0.8-1.5) mg/dL Glucose 259 H (75-100) mg/dL Calcium 8.6 (8.4-10.2) mg/dL Direct Bilirubin 0.4 H (0-0.2) mg/dL Indirect Bilirubin 0.7 mg/dL AST 58 H (5-40) units/L ALT 56 (7-56) units/L Alkaline Phosphatase 77 (35-129) units/L Total Protein 5.9 L (6.3-8.2) g/dL Albumin 3.3 L (3.9-5) g/dL Assessment and Plan Acute Cholecystitis Sepsis Diabetes Preoperative cardiac assessment Patient is considered moderate risk for noncardiac surgery. Ok to proceed.
[2018-06-13] MEDS ORDERED: LEVAQUIN 750MG/150ML 750 MG/150 ML BAG IV SCH (10:00)
[2018-06-13] MEDS: KCL 10MEQ/100ML 10 MEQ/100 ML BAG IV SCH ×2 (10:13→11:11)
--- NOTE | 2018-06-13 11:05 | Progress Note ---
Assessment and Plan 58 yo M with 1. acute cholecystitis 2. sepsis secondary to #1 3. diabetes 4. CAD Plan: 1. NPO except meds/ice chips 2. IVF 3. replace lytes 4. IV abx - zosyn. ceftriaxone and flagyl given in ER 5. pain and nausea control prn 6. repeat labs in am 7. Await cardiology recs 8. DVT ppx 9. Cholecystectomy this admission once cleared by cardiology. All risks, benefits, alternatives to surgery discussed with patient and questions answered. Consent signed. Thank you for this consultation, please call with questions or concerns. Subjective Date of service: 06/13/18 Narrative: Pt seen and examined. States his pain is mildly better today. + nausea and dry heaves, but no emesis. This is controlled with antiemetics. Pain is controlled with pain meds. + fever overnight. Objective Vital Signs - 12hr 06/12/18 06/12/18 06/13/18 23:07 23:31 05:16 Temperature 101.7 F H Pulse Rate 99 H Respiratory 18 18 18 Rate Blood Pressure 131/74 O2 Sat by Pulse 97 Oximetry 06/13/18 06:00 Temperature 100.1 F H Pulse Rate 93 H Respiratory 18 Rate Blood Pressure 113/56 O2 Sat by Pulse 95 Oximetry - General physical appearance Narrative Exam: Gen: AAOx3. NAD CV: S1, S2+ Resp: even and unlabored Abd; soft, ND, + RUQ TTP. Ext: no c/c/e - Labs 06/13/18 05:28 06/13/18 05:28 Diabetes panel 06/12/18 06/12/18 06/13/18 Range/Units 12:49 12:49 05:28 Sodium 139 (137-145) mmol/L Potassium 3.3 L D (3.6-5.0) mmol/L Chloride 100.1 (98-107) mmol/L Carbon Dioxide 25 (22-30) mmol/L BUN 8 L (9-20) mg/dL Creatinine 0.7 L (0.8-1.5) mg/dL Glucose 259 H (75-100) mg/dL Hemoglobin A1c 9.8 H (4-6) % Calcium 8.6 (8.4-10.2) mg/dL AST 58 H (5-40) units/L ALT 56 (7-56) units/L Alkaline Phosphatase 77 (35-129) units/L Total Protein 5.9 L (6.3-8.2) g/dL Albumin 3.3 L (3.9-5) g/dL Triglycerides 83 (2-149) mg/dL HDL Cholesterol 44 (40-59) mg/dL Calcium panel 06/13/18 Range/Units 05:28 Calcium 8.6 (8.4-10.2) mg/dL Albumin 3.3 L (3.9-5) g/dL Pituitary panel 06/13/18 Range/Units 05:28 Sodium 139 (137-145) mmol/L Potassium 3.3 L D (3.6-5.0) mmol/L Chloride 100.1 (98-107) mmol/L Carbon Dioxide 25 (22-30) mmol/L BUN 8 L (9-20) mg/dL Creatinine 0.7 L (0.8-1.5) mg/dL Glucose 259 H (75-100) mg/dL Calcium 8.6 (8.4-10.2) mg/dL Adrenal panel 06/13/18 Range/Units 05:28 Sodium 139 (137-145) mmol/L Potassium 3.3 L D (3.6-5.0) mmol/L Chloride 100.1 (98-107) mmol/L Carbon Dioxide 25 (22-30) mmol/L BUN 8 L (9-20) mg/dL Creatinine 0.7 L (0.8-1.5) mg/dL Glucose 259 H (75-100) mg/dL Calcium 8.6 (8.4-10.2) mg/dL Total Bilirubin 1.10 (0.1-1.2) mg/dL AST 58 H (5-40) units/L ALT 56 (7-56) units/L Alkaline Phosphatase 77 (35-129) units/L Total Protein 5.9 L (6.3-8.2) g/dL Albumin 3.3 L (3.9-5) g/dL
--- NOTE | 2018-06-13 12:18 | Progress Note ---
Assessment and Plan Assessment and plan: Sepsis 2/2 Acute Cholecystitis -Continue IV Zosyn -blood cultures pending Acute Cholecystitis -Surgery awaiting cardiology clearance before proceeding with cholecystectomy -Continue IV antibiotic NIDDM II with hyperglycemia -Continue current insulin regimen -Patient is nothing by mouth Hypokalemia -will replete potassium and monitor level -will check magnesium level HTN, essen, chronic -Stable Seizure disorder -Continue IV Keppra History of 3 Vessel atherosclerosis -Cardiology consult pending Disposition: Discharge planning after cholecystectomy History Interval history: Patient has no new complaints. He continues to have dry heaves without vomiting and right upper quadrant abdominal pain. Hospitalist Physical - Constitutional Vitals: Temp Pulse Resp BP Pulse Ox 100.5 F H 104 H 20 124/69 95 06/13/18 11:19 06/13/18 11:19 06/13/18 11:19 06/13/18 11:19 06/13/18 11:19 General appearance: Present: no acute distress - EENT Eyes: Present: PERRL, EOM intact ENT: hearing intact, clear oral mucosa - Neck Neck: Present: supple - Respiratory Respiratory effort: normal Respiratory: bilateral: CTA - Cardiovascular Rhythm: regular Heart Sounds: Present: S1 & S2 - Extremities Extremities: No edema - Abdominal General gastrointestinal: soft, tender (right upper quadrant), non-distended, normal bowel sounds - Neurologic Neurologic: CNII-XII intact Results - Labs CBC & Chem 7: 06/13/18 05:28 06/13/18 05:28 Labs: Laboratory Last Values WBC 20.1 K/mm3 (4.5-11.0) H 06/13/18 05:28 RBC 3.96 M/mm3 (3.65-5.03) 06/13/18 05:28 Hgb 12.1 gm/dl (11.8-15.2) 06/13/18 05:28 Hct 34.7 % (35.5-45.6) L 06/13/18 05:28 MCV 88 fl (84-94) 06/13/18 05:28 MCH 31 pg (28-32) 06/13/18 05:28 MCHC 35 % (32-34) H 06/13/18 05:28 RDW 13.3 % (13.2-15.2) 06/13/18 05:28 Plt Count 198 K/mm3 (140-440) 06/13/18 05:28 Lymph % (Auto) 5.9 % (13.4-35.0) L 06/13/18 05:28 [place] % (Auto) 7.2 % (0.0-7.3) 06/13/18 05:28 Eos % (Auto) 0.0 % (0.0-4.3) 06/13/18 05:28 Baso % (Auto) 0.2 % (0.0-1.8) 06/13/18 05:28 Lymph # 1.2 K/mm3 (1.2-5.4) 06/13/18 05:28 [place] # 1.4 K/mm3 (0.0-0.8) H 06/13/18 05:28 Eos # 0.0 K/mm3 (0.0-0.4) 06/13/18 05:28 Baso # 0.0 K/mm3 (0.0-0.1) 06/13/18 05:28 Seg Neutrophils % 86.7 % (40.0-70.0) H 06/13/18 05:28 Seg Neutrophils # 17.4 K/mm3 (1.8-7.7) H 06/13/18 05:28 Sodium 139 mmol/L (137-145) 06/13/18 05:28 Potassium 3.3 mmol/L (3.6-5.0) L D 06/13/18 05:28 Chloride 100.1 mmol/L (98-107) 06/13/18 05:28 Carbon Dioxide 25 mmol/L (22-30) 06/13/18 05:28 Anion Gap 17 mmol/L 06/13/18 05:28 BUN 8 mg/dL (9-20) L 06/13/18 05:28 Creatinine 0.7 mg/dL (0.8-1.5) L 06/13/18 05:28 Estimated GFR > 60 ml/min 06/13/18 05:28 BUN/Creatinine Ratio 11 % 06/13/18 05:28 Glucose 259 mg/dL (75-100) H 06/13/18 05:28 POC Glucose 237 (70-105) H 06/13/18 11:31 Hemoglobin A1c 9.8 % (4-6) H 06/12/18 12:49 Lactic Acid 1.90 mmol/L (0.7-2.0) 06/12/18 08:57 Calcium 8.6 mg/dL (8.4-10.2) 06/13/18 05:28 Total Bilirubin 1.10 mg/dL (0.1-1.2) 06/13/18 05:28 Direct Bilirubin 0.4 mg/dL (0-0.2) H 06/13/18 05:28 Indirect Bilirubin 0.7 mg/dL 06/13/18 05:28 AST 58 units/L (5-40) H 06/13/18 05:28 ALT 56 units/L (7-56) 06/13/18 05:28 Alkaline Phosphatase 77 units/L (35-129) 06/13/18 05:28 Total Creatine Kinase 45 units/L (55-170) L 06/12/18 03:46 Troponin T < 0.010 ng/mL (0.00-0.029) 06/12/18 02:44 NT-Pro-B Natriuret Pep 41.86 pg/mL (0-900) 06/12/18 03:46 Total Protein 5.9 g/dL (6.3-8.2) L 06/13/18 05:28 Albumin 3.3 g/dL (3.9-5) L 06/13/18 05:28 Albumin/Globulin Ratio 1.3 % 06/13/18 05:28 Triglycerides 83 mg/dL (2-149) 06/12/18 12:49 Cholesterol 146 mg/dL (50-199) 06/12/18 12:49 LDL Cholesterol Direct 92 mg/dL (50-130) 06/12/18 12:49 HDL Cholesterol 44 mg/dL (40-59) 06/12/18 12:49 Cholesterol/HDL Ratio 3.31 % 06/12/18 12:49 Lipase 32 units/L (13-60) 06/12/18 03:46 Urine Color Yellow (Yellow) 06/12/18 09:40 Urine Turbidity Clear (Clear) 06/12/18 09:40 Urine pH 5.0 (5.0-7.0) 06/12/18 09:40 Ur Specific [place] 1.040 (1.003-1.030) H 06/12/18 09:40 Urine Protein <15 mg/dl mg/dL (Negative) 06/12/18 09:40 Urine Glucose (UA) >=500 mg/dL (Negative) 06/12/18 09:40 Urine Ketones Tr mg/dL (Negative) 06/12/18 09:40 Urine Blood Neg (Negative) 06/12/18 09:40 Urine Nitrite Neg (Negative) 06/12/18 09:40 Urine Bilirubin Neg (Negative) 06/12/18 09:40 Urine Urobilinogen < 2.0 mg/dL (<2.0) 06/12/18 09:40 Ur Leukocyte Esterase Neg (Negative) 06/12/18 09:40 Urine WBC (Auto) 2.0 /HPF (0.0-6.0) 06/12/18 09:40 Urine RBC (Auto) 2.0 /HPF (0.0-6.0) 06/12/18 09:40 Urine Mucus Few /HPF 06/12/18 09:40
[2018-06-13] MEDS: NS/KCL 20MEQ 20 MEQ/1,000 ML BAG IV SCH ×2 (12:30→20:28)
[2018-06-13] MEDS: LANTUS SUB-Q SCH (22:22)
[2018-06-14] MEDS: MORPHINE IV PRN ×5 (01:07→22:00)
[2018-06-14] MEDS: REGLAN IV PRN (01:07)
[2018-06-14] MEDS: HumaLOG SUB-Q SCH ×4 (01:11→18:22)
[2018-06-14] MEDS: KEPPRA 750 MG in D5W 100 ML IV SCH ×2 (01:56→12:05)
[2018-06-14] MEDS: ZOSYN/NS 4.5GM/100ML 4.5 GM/100 ML VIAL IV SCH ×3 (06:02→22:35)
[2018-06-14] MEDS: ZOFRAN IV PRN ×3 (06:03→22:34)
[2018-06-14] MEDS: NS/KCL 20MEQ 20 MEQ/1,000 ML BAG IV SCH ×2 (06:03→19:00)
[2018-06-14] MEDS: HEPARIN SUB-Q SCH ×3 (06:07→22:28)
[2018-06-14 07:26] LABS: Basophils % (Auto) 0.2 % (0.0-1.8); Eosinophils # (Auto) 0.1 K/mm3 (0.0-0.4); Eosinophils % (Auto) 0.5 % (0.0-4.3); Hematocrit 32.1 % (35.5-45.6); Lymphocytes # (Auto) 1.6 K/mm3 (1.2-5.4); Lymphocytes % (Auto) 11.8 % (13.4-35.0); Mean Corpuscular HGB Conc 34 % (32-34); Mean Corpuscular Hemoglobin 30 pg (28-32); Mean Corpuscular Volume 89 fl (84-94); Monocytes # (Auto) 0.9 K/mm3 (0.0-0.8); Monocytes % (Auto) 6.4 % (0.0-7.3); Platelet Count 208 K/mm3 (140-440); Red Blood Count 3.63 M/mm3 (3.65-5.03); Red Cell Distribution Width 13.3 % (13.2-15.2)
[2018-06-14 07:41] LABS: Alanine Aminotransferase 33 units/L (7-56); Albumin 3.1 g/dL (3.9-5); BUN/Creatinine Ratio 16; Bilirubin,Direct 0.3 mg/dL (0-0.2); Blood Urea Nitrogen 8 mg/dL (9-20); Calcium 8.5 mg/dL (8.4-10.2); Hemolysis Index 2
--- NOTE | 2018-06-14 08:50 | Anesthesia Day of Surgery ---
Anesthesia Day of Surgery - Day of Surgery Patient Examined: Yes Patient H&P Reviewed: Yes Patient is NPO: Yes
--- NOTE | 2018-06-14 08:50 | Anesthesia Consultation ---
Anesthesia Consult and Med Hx Date of service: 06/14/18 - Airway Anesthetic Teeth Evaluation: Good ROM Head & Neck: Adequate Mental/Hyoid Distance: Adequate Mallampati Class: Class IV Intubation Access Assessment: Possibly Difficult - Pre-Operative Health Status ASA Pre-Surgery Classification: ASA3 Proposed Anesthetic Plan: General - Cardiovascular System Hx Hypertension: Yes - Central Nervous System Hx Seizures: Yes (Most recent in March. Three since September.) - Endocrine Hx Non-Insulin Dependent Diabetes: Yes (Poorly controlled. Given insulin upon admission for this reason.) - Additional Comments Anesthesia Medical History Comments: NAC.
[2018-06-14] MEDS ORDERED: DILAUDID ONE (09:16)
[2018-06-14] MEDS ORDERED: DIPRIVAN 10 MG/ML IV ONE (09:16)
[2018-06-14] MEDS ORDERED: XYLOCAINE MPF 2% ONE ×2 (09:17→15:35)
[2018-06-14] MEDS ORDERED: ZEMURON IV ONE ×2 (09:35→15:34)
[2018-06-14] MEDS ORDERED: DILAUDID IV PRN (10:45)
[2018-06-14] MEDS ORDERED: ZOFRAN IV PRN (10:45)
--- NOTE | 2018-06-14 10:59 | Progress Note ---
Assessment and Plan Acute Cholecystitis Sepsis Diabetes Preoperative cardiac assessment Patient is considered moderate risk for noncardiac surgery. Ok to proceed. Subjective Date of service: 06/14/18 Interval history: Patient is resting in bed comfortably. He has no cardiac complaints. Objective Vital Signs Temp Pulse Pulse Resp Resp BP Pulse Ox 06/14/18 09:31 98.9 F 90 20 124/70 98 06/14/18 06:33 20 06/14/18 06:03 20 06/14/18 04:06 90 20 99 06/14/18 01:37 20 06/14/18 01:07 18 06/13/18 23:39 97.8 F 95 H 20 145/82 97 06/13/18 22:00 20 06/13/18 21:00 93 H 20 06/13/18 20:57 20 06/13/18 20:27 20 06/13/18 16:34 99.1 F 89 20 147/81 96 06/13/18 11:19 100.5 F H 104 H 20 124/69 95 - Physical Examination General: No Apparent Distress HEENT: Positive: PERRL Cardiac: Positive: Reg Rate and Rhythm - Labs and Meds Cardiac Enzymes 06/14/18 Range/Units 06:46 AST 19 (5-40) units/L CBC 06/14/18 Range/Units 06:46 WBC 14.0 H (4.5-11.0) K/mm3 RBC 3.63 L (3.65-5.03) M/mm3 Hgb 11.0 L (11.8-15.2) gm/dl Hct 32.1 L (35.5-45.6) % Plt Count 208 (140-440) K/mm3 Lymph # 1.6 (1.2-5.4) K/mm3 [place] # 0.9 H (0.0-0.8) K/mm3 Eos # 0.1 (0.0-0.4) K/mm3 Baso # 0.0 (0.0-0.1) K/mm3 Comprehensive Metabolic Panel 06/14/18 Range/Units 06:46 Sodium 140 (137-145) mmol/L Potassium 3.1 L (3.6-5.0) mmol/L Chloride 101.8 (98-107) mmol/L Carbon Dioxide 27 (22-30) mmol/L BUN 8 L (9-20) mg/dL Creatinine 0.5 L (0.8-1.5) mg/dL Glucose 176 H (75-100) mg/dL Calcium 8.5 (8.4-10.2) mg/dL Direct Bilirubin 0.3 H (0-0.2) mg/dL Indirect Bilirubin 0.5 mg/dL AST 19 (5-40) units/L ALT 33 (7-56) units/L Alkaline Phosphatase 85 (35-129) units/L Total Protein 6.1 L (6.3-8.2) g/dL Albumin 3.1 L (3.9-5) g/dL
[2018-06-14] MEDS ORDERED: ZOFRAN IV NR (11:00)
[2018-06-14] MEDS ORDERED: LACTATED RINGERS 1,000 ML IV SCH ×2 (11:00→13:00)
[2018-06-14] MEDS: KCL 10MEQ/100ML 10 MEQ/100 ML BAG IV SCH ×4 (13:00→16:58)
--- NOTE | 2018-06-14 13:27 | Progress Note ---
Assessment and Plan Assessment and plan: Assessment Uncontrolled DM II with hyperglycemia Sepsis 2/2 Acute Cholecystitis Acute Cholecystitis HTN, essen, chronic Seizure disorder. 3 Vessel CAD Noncompliant with Metformin. Plan Optimal pain control IV abx am labs NPO status IV Keppra. Lipitor d/w pt Further pt mgt per hospital course. More than 25 mins spent History Interval history: Pt seen and exam, Pt scheduled for Cholecystectomy today. Continues to have 8/10 RUQ pain, associated Nausea. Has been cleared by cardio for GI surgery. Informed of his A1c of 9.8% and the need for Insulin SC upon d/c Hospitalist Physical - Constitutional Vitals: Temp Pulse Resp BP Pulse Ox 98.3 F 90 19 127/71 98 06/14/18 10:58 06/14/18 09:31 06/14/18 10:58 06/14/18 10:58 06/14/18 09:31 General appearance: Present: mild distress, well-nourished - EENT Eyes: Present: PERRL, EOM intact ENT: hearing intact, clear oral mucosa - Neck Neck: Present: supple, normal ROM - Respiratory Respiratory: bilateral: CTA, negative: diminished, rales, rhonchi, wheezing - Cardiovascular Rhythm: regular Heart Sounds: Present: S1 & S2 - Extremities Extremities: no ischemia, No edema, normal color, Full ROM Peripheral Pulses: within normal limits - Abdominal General gastrointestinal: soft, tender (RUQ ), normal bowel sounds - Integumentary Integumentary: Present: clear, warm, dry - Psychiatric Psychiatric: appropriate mood/affect, intact judgment & insight, cooperative - Neurologic Neurologic: CNII-XII intact, moves all extremities - Allied Health Allied health notes reviewed: nursing Results - Labs CBC & Chem 7: 06/14/18 06:46 06/14/18 06:46 Labs: Laboratory Last Values WBC 14.0 K/mm3 (4.5-11.0) H 06/14/18 06:46 RBC 3.63 M/mm3 (3.65-5.03) L 06/14/18 06:46 Hgb 11.0 gm/dl (11.8-15.2) L 06/14/18 06:46 Hct 32.1 % (35.5-45.6) L 06/14/18 06:46 MCV 89 fl (84-94) 06/14/18 06:46 MCH 30 pg (28-32) 06/14/18 06:46 MCHC 34 % (32-34) 06/14/18 06:46 RDW 13.3 % (13.2-15.2) 06/14/18 06:46 Plt Count 208 K/mm3 (140-440) 06/14/18 06:46 Lymph % (Auto) 11.8 % (13.4-35.0) L 06/14/18 06:46 [place] % (Auto) 6.4 % (0.0-7.3) 06/14/18 06:46 Eos % (Auto) 0.5 % (0.0-4.3) 06/14/18 06:46 Baso % (Auto) 0.2 % (0.0-1.8) 06/14/18 06:46 Lymph # 1.6 K/mm3 (1.2-5.4) 06/14/18 06:46 [place] # 0.9 K/mm3 (0.0-0.8) H 06/14/18 06:46 Eos # 0.1 K/mm3 (0.0-0.4) 06/14/18 06:46 Baso # 0.0 K/mm3 (0.0-0.1) 06/14/18 06:46 Seg Neutrophils % 81.1 % (40.0-70.0) H 06/14/18 06:46 Seg Neutrophils # 11.3 K/mm3 (1.8-7.7) H 06/14/18 06:46 Sodium 140 mmol/L (137-145) 06/14/18 06:46 Potassium 3.1 mmol/L (3.6-5.0) L 06/14/18 06:46 Chloride 101.8 mmol/L (98-107) 06/14/18 06:46 Carbon Dioxide 27 mmol/L (22-30) 06/14/18 06:46 Anion Gap 14 mmol/L 06/14/18 06:46 BUN 8 mg/dL (9-20) L 06/14/18 06:46 Creatinine 0.5 mg/dL (0.8-1.5) L 06/14/18 06:46 Estimated GFR > 60 ml/min 06/14/18 06:46 BUN/Creatinine Ratio 16 % 06/14/18 06:46 Glucose 176 mg/dL (75-100) H 06/14/18 06:46 POC Glucose 163 (70-105) H 06/14/18 11:11 Hemoglobin A1c 9.8 % (4-6) H 06/12/18 12:49 Lactic Acid 1.90 mmol/L (0.7-2.0) 06/12/18 08:57 Calcium 8.5 mg/dL (8.4-10.2) 06/14/18 06:46 Magnesium 1.80 mg/dL (1.7-2.3) 06/14/18 06:46 Total Bilirubin 0.80 mg/dL (0.1-1.2) 06/14/18 06:46 Direct Bilirubin 0.3 mg/dL (0-0.2) H 06/14/18 06:46 Indirect Bilirubin 0.5 mg/dL 06/14/18 06:46 AST 19 units/L (5-40) 06/14/18 06:46 ALT 33 units/L (7-56) 06/14/18 06:46 Alkaline Phosphatase 85 units/L (35-129) 06/14/18 06:46 Total Creatine Kinase 45 units/L (55-170) L 06/12/18 03:46 Troponin T < 0.010 ng/mL (0.00-0.029) 06/12/18 02:44 NT-Pro-B Natriuret Pep 41.86 pg/mL (0-900) 06/12/18 03:46 Total Protein 6.1 g/dL (6.3-8.2) L 06/14/18 06:46 Albumin 3.1 g/dL (3.9-5) L 06/14/18 06:46 Albumin/Globulin Ratio 1.0 % 06/14/18 06:46 Triglycerides 83 mg/dL (2-149) 06/12/18 12:49 Cholesterol 146 mg/dL (50-199) 06/12/18 12:49 LDL Cholesterol Direct 92 mg/dL (50-130) 06/12/18 12:49 HDL Cholesterol 44 mg/dL (40-59) 06/12/18 12:49 Cholesterol/HDL Ratio 3.31 % 06/12/18 12:49 Lipase 32 units/L (13-60) 06/12/18 03:46 Urine Color Yellow (Yellow) 06/12/18 09:40 Urine Turbidity Clear (Clear) 06/12/18 09:40 Urine pH 5.0 (5.0-7.0) 06/12/18 09:40 Ur Specific [place] 1.040 (1.003-1.030) H 06/12/18 09:40 Urine Protein <15 mg/dl mg/dL (Negative) 06/12/18 09:40 Urine Glucose (UA) >=500 mg/dL (Negative) 06/12/18 09:40 Urine Ketones Tr mg/dL (Negative) 06/12/18 09:40 Urine Blood Neg (Negative) 06/12/18 09:40 Urine Nitrite Neg (Negative) 06/12/18 09:40 Urine Bilirubin Neg (Negative) 06/12/18 09:40 Urine Urobilinogen < 2.0 mg/dL (<2.0) 06/12/18 09:40 Ur Leukocyte Esterase Neg (Negative) 06/12/18 09:40 Urine WBC (Auto) 2.0 /HPF (0.0-6.0) 06/12/18 09:40 Urine RBC (Auto) 2.0 /HPF (0.0-6.0) 06/12/18 09:40 Urine Mucus Few /HPF 06/12/18 09:40 - Imaging and Cardiology Chest x-ray: report reviewed, image reviewed
[2018-06-14] MEDS ORDERED: MARCAINE 0.5% 30 ML INFILTRATI ONE (14:03)
[2018-06-14] MEDS ORDERED: XYLOCAINE 1% 20 mL ONE (14:03)
[2018-06-14] MEDS: DILAUDID IV PRN ×3 (14:12→17:31)
[2018-06-14] MEDS ORDERED: MARCAINE 0.5% INFILTRATI ONE (15:10)
[2018-06-14] MEDS ORDERED: XYLOCAINE 1% 20 mL INFILTRATI ONE (15:10)
[2018-06-14] MEDS ORDERED: NACL 0.9% IR ONE (15:11)
[2018-06-14] MEDS ORDERED: ROBINUL ONE (15:30)
[2018-06-14] MEDS ORDERED: BLOXIVERZ ONE (15:30)
[2018-06-14] MEDS ORDERED: ZOFRAN ONE ×2 (15:35)
--- NOTE | 2018-06-14 16:18 | Post Operative Note ---
Date of procedure: 06/14/18 Pre-op diagnosis: acute cholecystitis Post-op diagnosis: other (acute gangrenous cholecystitis) Findings: gangrenous gallbladder full of bile and tiny stones, severe inflammation with dense adhesions from gallbladder to omentum. Procedure: laparoscopic cholecystectomy Anesthesia: GETA, local Surgeon: ASIF PENNY (assist: Dianna Rudolph) Estimated blood loss: minimal Pathology: list (gallbladder) Specimen disposition: to lab Condition: stable Disposition: PACU
--- NOTE | 2018-06-14 17:07 | Operative Report ---
Operative Report Operative Report: Date of procedure: 06/14/18 Pre-op diagnosis: acute cholecystitis Post-op diagnosis: other (acute gangrenous cholecystitis) Findings: gangrenous gallbladder full of bile and tiny stones, severe inflammation with dense adhesions from gallbladder to omentum. Procedure: laparoscopic cholecystectomy Anesthesia: KRISTEL, local Surgeon: ASIF PENNY Equipment Operation Instructor: Dianna Rudolph Estimated blood loss: minimal Pathology: list (gallbladder) Specimen disposition: to lab Condition: stable Disposition: PACU HPI an indication: 58-year-old male who presented to the hospital with complaints of severe right upper quadrant abdominal pain. He was found to have acute cholecystitis on imaging consisting of a CAT scan of the abdomen and pelvis and a right upper quadrant ultrasound. The patient had a significant cardiac history, and was seen by cardiology for preop risk assessment. He was deemed a moderate risk for noncardiac surgery. The patient was consented for a laparoscopic possible open cholecystectomy. All risks, benefits, alternatives were discussed and questions answered. Procedure in detail: The patient was identified in the preoperative area and taken back to the operating room, placed on the operating room table in supine position. After anesthesia was induced, the abdomen was prepped and draped in usual sterile fashion and timeout was performed. Local anesthetic was infiltrated into all of the skin incision sites. Using a 11 blade a supraumbilical incision was made and through this a Veress needle was used to insufflate the abdomen. The position of the veress needle was confirmed with the saline drop test and the abdomen was then insufflated to 15 mmHg. The veress needle was then removed and a 5 mm trocar placed using Optiview trocar. The abdomen was then inspected and there was no underlying injury to any of the abdominal contents. An additional 12 mm subxyphoid port, and 2, 5mm RUQ ports were then placed under direct visualization. The patient was then placed into reverse Trendelberg and tilted to the left. The gallbladder was obscured by omentum which was densely adhered to the wall of the gallbladder. These adhesions were taken down bluntly, with great care to prevent injury to underlying structures. Once the gallbladder was visualized, it was grossly gangrenous, distended, with a thickened wall. The gallbladder was first decompressed using a laparoscopic needle and a 60 mL syringe. Greater than 120 mL of green bile were decompressed from the gallbladder. The gallbladder was then grasped and lifted cephalad. Additional dense adhesions from the omentum to the gallbladder were taken down bluntly until the gallbladder neck was identified. The gallbladder neck was very inflamed, making the dissection difficult. Therefore using the Harmonic scalpel, the gallbladder was dissected off the liver bed using a dome down approach. Once the neck of the gallbladder was reached, the cystic duct and artery were then carefully dissected and the critical view obtained, and the cystic duct and artery were the only two structures seen entering the gallbladder. Three clips were then placed on the proximal aspect of the cystic duct and one clip distally, and 2 clips on the cystic artery proximally and one distal. The cystic duct was then transected in between the clips using EndoShears. Cystic artery was transected distal to the clips using the harmonic scalpel. The gallbladder was placed into a Endo Catch bag and removed from the abdomen via the 12mm port. The gallbladder fossa was then inspected and there was no identifiable bleeding or bile leakage. Hemostasis was ensured. The clips on the cystic duct and artery were visualized and intact. The patient was then placed into neutral position and Morison's pouch was irrigated until the irrigant returned clear. All 4 quadrants were examined and a free fluid was suctioned out of the abdomen. The 12 mm port fascia was closed with 2, interrupted 0 Vicryl sutures using the Varun Stone device. The remaining ports were removed under direct visualization. Skin incisions were closed with 4-0 Monocryl subcuticular stitches and skin glue. All skin incisions were once again infiltrated with local anesthetic. At the end case all sponge, instrument, sharp counts were correct 2. The patient was awoken from anesthesia, extubated, taken to PACU in stable condition.
[2018-06-14] MEDS: LANTUS SUB-Q SCH (22:26)
[2018-06-15] MEDS: HumaLOG SUB-Q SCH ×4 (01:01→19:52)
[2018-06-15] MEDS: PERCOCET 5/325 PO PRN (01:02)
[2018-06-15] MEDS: KEPPRA 750 MG in D5W 100 ML IV SCH ×2 (01:03→11:52)
[2018-06-15 01:22] LABS: Hematocrit 29.9 % (35.5-45.6); Hemoglobin 10.4 gm/dl (11.8-15.2); Mean Corpuscular HGB Conc 35 % (32-34); Mean Corpuscular Hemoglobin 30 pg (28-32); Mean Corpuscular Volume 87 fl (84-94); Platelet Count 231 K/mm3 (140-440); Red Blood Count 3.43 M/mm3 (3.65-5.03); Red Cell Distribution Width 13.3 % (13.2-15.2)
[2018-06-15] MEDS: NS/KCL 20MEQ 20 MEQ/1,000 ML BAG IV SCH (04:00)
[2018-06-15] MEDS: MORPHINE IV PRN ×4 (04:25→21:42)
[2018-06-15] MEDS: ZOSYN/NS 4.5GM/100ML 4.5 GM/100 ML VIAL IV SCH ×2 (06:47→14:16)
[2018-06-15] MEDS: HEPARIN SUB-Q SCH ×3 (06:47→21:48)
[2018-06-15 08:08] LABS: Alanine Aminotransferase 31 units/L (7-56); BUN/Creatinine Ratio 12; Blood Urea Nitrogen 7 mg/dL (9-20); Calcium 8.6 mg/dL (8.4-10.2); Hemolysis Index 7
[2018-06-15] MEDS ORDERED: K-DUR PO ONE ×2 (08:23)
[2018-06-15] MEDS ORDERED: MAGNESIUM SULFATE IV ONE (09:03)
--- NOTE | 2018-06-15 10:39 | Progress Note ---
Assessment and Plan Acute Cholecystitis s/p lap cholecystectomy Sepsis Diabetes Continue routine post operative care. No further cardiac recommendations. We will sign off. Subjective Date of service: 06/15/18 Interval history: Patient has no cardiac complaints post operatively. Objective Vital Signs Temp Pulse Resp BP Pulse Ox 06/14/18 22:59 80 97 06/14/18 22:58 97.6 F 79 20 145/85 98 06/14/18 17:56 98.4 F 89 19 141/87 98 06/14/18 17:46 88 12 142/86 99 06/14/18 17:31 16 06/14/18 17:30 98 F 86 12 141/83 99 06/14/18 17:15 82 16 140/83 100 06/14/18 17:03 16 06/14/18 17:00 81 16 140/80 99 06/14/18 16:45 74 12 130/79 99 06/14/18 16:40 73 14 132/78 99 06/14/18 16:35 74 16 125/74 100 06/14/18 16:30 70 15 119/73 99 06/14/18 16:25 98.8 F 71 17 112/68 98 06/14/18 13:53 98.4 F 85 18 136/74 97 06/14/18 13:25 98.4 F 85 18 136/74 97 06/14/18 10:58 98.3 F 19 127/71 - Physical Examination General: No Apparent Distress HEENT: Positive: PERRL Cardiac: Positive: Reg Rate and Rhythm Lungs: Positive: Decreased Breath Sounds Neuro: Positive: Grossly Intact - Labs and Meds Cardiac Enzymes 06/15/18 Range/Units 07:15 AST 19 (5-40) units/L CBC 06/15/18 Range/Units 00:38 WBC 11.8 H (4.5-11.0) K/mm3 RBC 3.43 L (3.65-5.03) M/mm3 Hgb 10.4 L (11.8-15.2) gm/dl Hct 29.9 L (35.5-45.6) % Plt Count 231 (140-440) K/mm3 Comprehensive Metabolic Panel 06/15/18 Range/Units 07:15 Sodium 139 (137-145) mmol/L Potassium 2.7 L* (3.6-5.0) mmol/L Chloride 100.0 (98-107) mmol/L Carbon Dioxide 26 (22-30) mmol/L BUN 7 L (9-20) mg/dL Creatinine 0.6 L (0.8-1.5) mg/dL Glucose 140 H (75-100) mg/dL Calcium 8.6 (8.4-10.2) mg/dL AST 19 (5-40) units/L ALT 31 (7-56) units/L Alkaline Phosphatase 76 (35-129) units/L Total Protein 6.0 L (6.3-8.2) g/dL Albumin 3.0 L (3.9-5) g/dL
--- NOTE | 2018-06-15 11:25 | Progress Note ---
Assessment and Plan 58 yo M s/p laparoscopic cholecystectomy POD 1 for gangrenous cholecystitis Plan: 1. reg diet 2. dc IVF 3. dc IV abx 4. OOB/ambulate 5. DVT ppx 6. prn pain control 7. replace K, check Phos and Mag 8. repeat bmp in am 9. Ok to dc from surgery standpoint in am tomorrow. Pt to follow up in surgery office in 2 weeks for post op visit D/W Dr. Hill Subjective Date of service: 06/15/18 Narrative: Pt seen and examined. c/o abdominal discomfort and diarrhea overnight. No diarrhea this am. He is tired and wants to sleep. No n/v. He tolerated clear liquids. No f/c. Objective Vital Signs - 12hr 06/15/18 06/15/18 06:43 11:12 Temperature 99.1 F 98.4 F Pulse Rate 86 83 Respiratory 18 19 Rate Blood Pressure 145/78 132/82 O2 Sat by Pulse 99 95 Oximetry - General physical appearance Narrative Exam: Gen: AAOx3. NAD CV: S1, S2+ resp: even and unlabored Abd: soft, mildly distended, + TTP near incisions. incisions are c/d/i. NO r/r/g Ext: no c/c/e - Labs 06/15/18 00:38 06/15/18 07:15 Diabetes panel 06/15/18 Range/Units 07:15 Sodium 139 (137-145) mmol/L Potassium 2.7 L* (3.6-5.0) mmol/L Chloride 100.0 (98-107) mmol/L Carbon Dioxide 26 (22-30) mmol/L BUN 7 L (9-20) mg/dL Creatinine 0.6 L (0.8-1.5) mg/dL Glucose 140 H (75-100) mg/dL Calcium 8.6 (8.4-10.2) mg/dL AST 19 (5-40) units/L ALT 31 (7-56) units/L Alkaline Phosphatase 76 (35-129) units/L Total Protein 6.0 L (6.3-8.2) g/dL Albumin 3.0 L (3.9-5) g/dL Calcium panel 06/15/18 Range/Units 07:15 Calcium 8.6 (8.4-10.2) mg/dL Albumin 3.0 L (3.9-5) g/dL Pituitary panel 06/15/18 Range/Units 07:15 Sodium 139 (137-145) mmol/L Potassium 2.7 L* (3.6-5.0) mmol/L Chloride 100.0 (98-107) mmol/L Carbon Dioxide 26 (22-30) mmol/L BUN 7 L (9-20) mg/dL Creatinine 0.6 L (0.8-1.5) mg/dL Glucose 140 H (75-100) mg/dL Calcium 8.6 (8.4-10.2) mg/dL Adrenal panel 06/15/18 Range/Units 07:15 Sodium 139 (137-145) mmol/L Potassium 2.7 L* (3.6-5.0) mmol/L Chloride 100.0 (98-107) mmol/L Carbon Dioxide 26 (22-30) mmol/L BUN 7 L (9-20) mg/dL Creatinine 0.6 L (0.8-1.5) mg/dL Glucose 140 H (75-100) mg/dL Calcium 8.6 (8.4-10.2) mg/dL Total Bilirubin 0.60 (0.1-1.2) mg/dL AST 19 (5-40) units/L ALT 31 (7-56) units/L Alkaline Phosphatase 76 (35-129) units/L Total Protein 6.0 L (6.3-8.2) g/dL Albumin 3.0 L (3.9-5) g/dL
[2018-06-15] MEDS: MAGNESIUM SULFATE 1 GM in NACL 0.9% 50 ML IV ONE ×2 (11:52→12:11)
[2018-06-15] MEDS: KCL 10MEQ/100ML 10 MEQ/100 ML BAG IV SCH ×4 (11:52→16:44)
--- NOTE | 2018-06-15 16:47 | Progress Note ---
Assessment and Plan Assessment and plan: Uncontrolled DM II with hyperglycemia Sepsis 2/2 Acute Cholecystitis Acute Cholecystitis S/P CHOLECYSTECTOMY Hypomagessemia Hypokalemia Diarrhea now resolved HTN, essen, chronic Seizure disorder. 3 Vessel CAD Noncompliant with Metformin. Plan Optimal pain control IV abx am labs Replace electrolytes CARDIAC INPUT NOTED. FOLLOW UP OUTPATIENT CHANGE KEPPRA TO POIV Keppra. Lipitor d/w pt Further pt mgt per hospital course. Anticipate discharge in am. plan discussed with the patient in detail History Interval history: Patient seen and examined in no acute distress. reported abdominal discomfort and nausea with vomiting last night but now resolved. also reported urinary hesitancy Hospitalist Physical - Physical exam Narrative exam: General appearance: Present: well-nourished, lathergic - EENT Eyes: Present: PERRL, EOM intact ENT: hearing intact, clear oral mucosa - Neck Neck: Present: supple, normal ROM - Respiratory Respiratory: bilateral: CTA, negative: diminished, rales, rhonchi, wheezing - Cardiovascular Rhythm: regular Heart Sounds: Present: S1 & S2 - Extremities Extremities: no ischemia, No edema, normal color, Full ROM Peripheral Pulses: within normal limits - Abdominal General gastrointestinal: soft, tender (RUQ ), surgical site noted. normal bowel sounds - Integumentary Integumentary: Present: clear, warm, dry - Psychiatric Psychiatric: appropriate mood/affect, intact judgment & insight, cooperative - Neurologic Neurologic: CNII-XII intact, moves all extremities - Allied Health Allied health notes reviewed: nursing - Constitutional Vitals: Temp Pulse Resp BP Pulse Ox 98.4 F 83 19 132/82 95 06/15/18 11:12 06/15/18 11:12 06/15/18 11:12 06/15/18 11:12 06/15/18 11:12 General appearance: Present: mild distress, well-nourished Results - Labs CBC & Chem 7: 06/15/18 00:38 06/15/18 07:15 Labs: Laboratory Last Values WBC 11.8 K/mm3 (4.5-11.0) H 06/15/18 00:38 RBC 3.43 M/mm3 (3.65-5.03) L 06/15/18 00:38 Hgb 10.4 gm/dl (11.8-15.2) L 06/15/18 00:38 Hct 29.9 % (35.5-45.6) L 06/15/18 00:38 MCV 87 fl (84-94) 06/15/18 00:38 MCH 30 pg (28-32) 06/15/18 00:38 MCHC 35 % (32-34) H 06/15/18 00:38 RDW 13.3 % (13.2-15.2) 06/15/18 00:38 Plt Count 231 K/mm3 (140-440) 06/15/18 00:38 Lymph % (Auto) 11.8 % (13.4-35.0) L 06/14/18 06:46 [place] % (Auto) 6.4 % (0.0-7.3) 06/14/18 06:46 Eos % (Auto) 0.5 % (0.0-4.3) 06/14/18 06:46 Baso % (Auto) 0.2 % (0.0-1.8) 06/14/18 06:46 Lymph # 1.6 K/mm3 (1.2-5.4) 06/14/18 06:46 [place] # 0.9 K/mm3 (0.0-0.8) H 06/14/18 06:46 Eos # 0.1 K/mm3 (0.0-0.4) 06/14/18 06:46 Baso # 0.0 K/mm3 (0.0-0.1) 06/14/18 06:46 Seg Neutrophils % 81.1 % (40.0-70.0) H 06/14/18 06:46 Seg Neutrophils # 11.3 K/mm3 (1.8-7.7) H 06/14/18 06:46 Sodium 139 mmol/L (137-145) 06/15/18 07:15 Potassium 2.7 mmol/L (3.6-5.0) L* 06/15/18 07:15 Chloride 100.0 mmol/L (98-107) 06/15/18 07:15 Carbon Dioxide 26 mmol/L (22-30) 06/15/18 07:15 Anion Gap 16 mmol/L 06/15/18 07:15 BUN 7 mg/dL (9-20) L 06/15/18 07:15 Creatinine 0.6 mg/dL (0.8-1.5) L 06/15/18 07:15 Estimated GFR > 60 ml/min 06/15/18 07:15 BUN/Creatinine Ratio 12 % 06/15/18 07:15 Glucose 140 mg/dL (75-100) H 06/15/18 07:15 POC Glucose 171 (70-105) H 06/15/18 11:21 Hemoglobin A1c 9.8 % (4-6) H 06/12/18 12:49 Lactic Acid 1.90 mmol/L (0.7-2.0) 06/12/18 08:57 Calcium 8.6 mg/dL (8.4-10.2) 06/15/18 07:15 Phosphorus 1.50 mg/dL (2.5-4.5) L 06/15/18 09:54 Magnesium 1.70 mg/dL (1.7-2.3) 06/15/18 09:54 Total Bilirubin 0.60 mg/dL (0.1-1.2) 06/15/18 07:15 Direct Bilirubin 0.3 mg/dL (0-0.2) H 06/14/18 06:46 Indirect Bilirubin 0.5 mg/dL 06/14/18 06:46 AST 19 units/L (5-40) 06/15/18 07:15 ALT 31 units/L (7-56) 06/15/18 07:15 Alkaline Phosphatase 76 units/L (35-129) 06/15/18 07:15 Total Creatine Kinase 45 units/L (55-170) L 06/12/18 03:46 Troponin T < 0.010 ng/mL (0.00-0.029) 06/12/18 02:44 NT-Pro-B Natriuret Pep 41.86 pg/mL (0-900) 06/12/18 03:46 Total Protein 6.0 g/dL (6.3-8.2) L 06/15/18 07:15 Albumin 3.0 g/dL (3.9-5) L 06/15/18 07:15 Albumin/Globulin Ratio 1.0 % 06/15/18 07:15 Triglycerides 83 mg/dL (2-149) 06/12/18 12:49 Cholesterol 146 mg/dL (50-199) 06/12/18 12:49 LDL Cholesterol Direct 92 mg/dL (50-130) 06/12/18 12:49 HDL Cholesterol 44 mg/dL (40-59) 06/12/18 12:49 Cholesterol/HDL Ratio 3.31 % 06/12/18 12:49 Lipase 32 units/L (13-60) 06/12/18 03:46 Urine Color Yellow (Yellow) 06/12/18 09:40 Urine Turbidity Clear (Clear) 06/12/18 09:40 Urine pH 5.0 (5.0-7.0) 06/12/18 09:40 Ur Specific [place] 1.040 (1.003-1.030) H 06/12/18 09:40 Urine Protein <15 mg/dl mg/dL (Negative) 06/12/18 09:40 Urine Glucose (UA) >=500 mg/dL (Negative) 06/12/18 09:40 Urine Ketones Tr mg/dL (Negative) 06/12/18 09:40 Urine Blood Neg (Negative) 06/12/18 09:40 Urine Nitrite Neg (Negative) 06/12/18 09:40 Urine Bilirubin Neg (Negative) 06/12/18 09:40 Urine Urobilinogen < 2.0 mg/dL (<2.0) 06/12/18 09:40 Ur Leukocyte Esterase Neg (Negative) 06/12/18 09:40 Urine WBC (Auto) 2.0 /HPF (0.0-6.0) 06/12/18 09:40 Urine RBC (Auto) 2.0 /HPF (0.0-6.0) 06/12/18 09:40 Urine Mucus Few /HPF 06/12/18 09:40
[2018-06-15] MEDS: PHOS-NAK PO SCH (21:45)
[2018-06-15] MEDS: KEPPRA PO SCH (21:45)
[2018-06-15] MEDS: LANTUS SUB-Q SCH (21:46)
[2018-06-15] MEDS ORDERED: TRILEPTAL PO SCH (22:00)
[2018-06-16] MEDS: HumaLOG SUB-Q SCH ×4 (00:15→17:29)
[2018-06-16] MEDS: HEPARIN SUB-Q SCH ×3 (06:27→21:19)
[2018-06-16 08:14] LABS: Hematocrit 30.6 % (35.5-45.6); Hemoglobin 11.2 gm/dl (11.8-15.2); Mean Corpuscular HGB Conc 37 % (32-34); Mean Corpuscular Hemoglobin 32 pg (28-32); Mean Corpuscular Volume 87 fl (84-94); Platelet Count 286 K/mm3 (140-440); Red Blood Count 3.53 M/mm3 (3.65-5.03); Red Cell Distribution Width 13.2 % (13.2-15.2)
[2018-06-16 08:45] LABS: BUN/Creatinine Ratio 8; Blood Urea Nitrogen 4 mg/dL (9-20); Calcium 8.3 mg/dL (8.4-10.2); Hemolysis Index 1
[2018-06-16] MEDS ORDERED: KPHOS 45 MMOL in NACL 0.9% 500 ML 500 ML IV ONE (10:00)
[2018-06-16] MEDS: PHOS-NAK PO SCH ×2 (10:08→21:18)
[2018-06-16] MEDS: NORVASC PO SCH (10:08)
[2018-06-16] MEDS: KEPPRA PO SCH ×2 (10:08→21:16)
[2018-06-16] MEDS ORDERED: K-DUR PO STA (10:34)
[2018-06-16] MEDS: PERCOCET 5/325 PO PRN ×2 (11:00→21:27)
--- NOTE | 2018-06-16 13:20 | Progress Note ---
Assessment and Plan 58 yo M s/p laparoscopic cholecystectomy POD 2 for gangrenous cholecystitis Plan: 1. reg diet 2. restart gentle IVF since patient's PO intake is poor 3. diarrhea likely reactive from intraabdominal infection from cholecystitis, however will obtain stool studies for continued diarrhea 4. OOB/ambulate 5. DVT ppx 6. prn pain control 7. Hypokalemia - aggressive K replacement, recheck BMP, Mg, Phos in am Subjective Date of service: 06/16/18 Narrative: Pt seen and examined. c/o feeling tired. States he has no appetite. He continues to have diarrhea. He has pain near his abdominal incisions. No f/c, cp , sob, n/v. Objective Vital Signs - 12hr 06/16/18 06/16/18 06/16/18 06:01 10:04 10:08 Temperature 99.0 F Pulse Rate 79 Respiratory 18 18 Rate Blood Pressure 175/96 163/93 163/93 O2 Sat by Pulse 95 Oximetry 06/16/18 12:10 Temperature 99.0 F Pulse Rate 81 Respiratory 19 Rate Blood Pressure 168/90 O2 Sat by Pulse 95 Oximetry - General physical appearance Narrative Exam: Gen: AAox3. Appears tired. NAD ENT: no scleral icterus or conjunctival pallor CV: s1, S2+ resp: even and unlabored Abd: soft, ND, + TTP near incisions. No r/r/g. Incisions c/d/i Ext: no c/c/e - Labs 06/16/18 07:19 06/16/18 07:19 Diabetes panel 06/16/18 Range/Units 07:19 Sodium 141 (137-145) mmol/L Potassium 2.9 L* (3.6-5.0) mmol/L Chloride 100.8 (98-107) mmol/L Carbon Dioxide 26 (22-30) mmol/L BUN 4 L (9-20) mg/dL Creatinine 0.5 L (0.8-1.5) mg/dL Glucose 99 (75-100) mg/dL Calcium 8.3 L (8.4-10.2) mg/dL Calcium panel 06/16/18 Range/Units 07:19 Calcium 8.3 L (8.4-10.2) mg/dL Pituitary panel 06/16/18 Range/Units 07:19 Sodium 141 (137-145) mmol/L Potassium 2.9 L* (3.6-5.0) mmol/L Chloride 100.8 (98-107) mmol/L Carbon Dioxide 26 (22-30) mmol/L BUN 4 L (9-20) mg/dL Creatinine 0.5 L (0.8-1.5) mg/dL Glucose 99 (75-100) mg/dL Calcium 8.3 L (8.4-10.2) mg/dL Adrenal panel 06/16/18 Range/Units 07:19 Sodium 141 (137-145) mmol/L Potassium 2.9 L* (3.6-5.0) mmol/L Chloride 100.8 (98-107) mmol/L Carbon Dioxide 26 (22-30) mmol/L BUN 4 L (9-20) mg/dL Creatinine 0.5 L (0.8-1.5) mg/dL Glucose 99 (75-100) mg/dL Calcium 8.3 L (8.4-10.2) mg/dL
[2018-06-16] MEDS ORDERED: D5W/0.45% NACL/KCL 30 MEQ 30 MEQ/1,000 ML BAG IV SCH (14:00)
--- NOTE | 2018-06-16 14:41 | Progress Note ---
Assessment and Plan Assessment and plan: Uncontrolled DM II with hyperglycemia Sepsis 2/2 Acute Cholecystitis Acute Cholecystitis S/P CHOLECYSTECTOMY Hypomagnesemia Hypokalemia Diarrhea HTN, essen, chronic Seizure disorder. 3 Vessel CAD Noncompliant with Metformin. Plan Optimal pain control IV abx am labs Replace electrolytes and recheck this afternoon CARDIAC INPUT NOTED. FOLLOW UP OUTPATIENT Continue Keppra Lipitor d/w pt Diarrhea plan discussed with the patient in detail History Interval history: less abd pain Gen weakness Diarrhea Hospitalist Physical - Physical exam Narrative exam: Constitutional; Not in acute distress,obese HEENT: Atraumatic, normocephalic Neck: supple, no lymphadenopathy, JVD or thyromegaly Lungs: Clear to auscultation, bilaterally, no wheeze, no crackles CVS; S1-S2 regular, no murmurs, rubs or gallop, Abdomen; soft, mild tenderness, non distended,bowel sounds are normal, surgical scar Musculoskeletal; No edema, no clubbing or cyanosis, MATERIAL HANDLING WAREHOUSE SUPERVISOR: awake, alert,oriented x3, no focal neurological signs - Constitutional Vitals: Temp Pulse Resp BP Pulse Ox 99.0 F 81 19 168/90 95 06/16/18 12:10 06/16/18 12:10 06/16/18 12:10 06/16/18 12:10 06/16/18 12:10 General appearance: Present: obese Results - Labs CBC & Chem 7: 06/16/18 07:19 06/16/18 07:19 Labs: Laboratory Last Values WBC 7.1 K/mm3 (4.5-11.0) 06/16/18 07:19 RBC 3.53 M/mm3 (3.65-5.03) L 06/16/18 07:19 Hgb 11.2 gm/dl (11.8-15.2) L 06/16/18 07:19 Hct 30.6 % (35.5-45.6) L 06/16/18 07:19 MCV 87 fl (84-94) 06/16/18 07:19 MCH 32 pg (28-32) 06/16/18 07:19 MCHC 37 % (32-34) H 06/16/18 07:19 RDW 13.2 % (13.2-15.2) 06/16/18 07:19 Plt Count 286 K/mm3 (140-440) 06/16/18 07:19 Lymph % (Auto) 11.8 % (13.4-35.0) L 06/14/18 06:46 [place] % (Auto) 6.4 % (0.0-7.3) 06/14/18 06:46 Eos % (Auto) 0.5 % (0.0-4.3) 06/14/18 06:46 Baso % (Auto) 0.2 % (0.0-1.8) 06/14/18 06:46 Lymph # 1.6 K/mm3 (1.2-5.4) 06/14/18 06:46 [place] # 0.9 K/mm3 (0.0-0.8) H 06/14/18 06:46 Eos # 0.1 K/mm3 (0.0-0.4) 06/14/18 06:46 Baso # 0.0 K/mm3 (0.0-0.1) 06/14/18 06:46 Seg Neutrophils % 81.1 % (40.0-70.0) H 06/14/18 06:46 Seg Neutrophils # 11.3 K/mm3 (1.8-7.7) H 06/14/18 06:46 Sodium 141 mmol/L (137-145) 06/16/18 07:19 Potassium 2.9 mmol/L (3.6-5.0) L* 06/16/18 07:19 Chloride 100.8 mmol/L (98-107) 06/16/18 07:19 Carbon Dioxide 26 mmol/L (22-30) 06/16/18 07:19 Anion Gap 17 mmol/L 06/16/18 07:19 BUN 4 mg/dL (9-20) L 06/16/18 07:19 Creatinine 0.5 mg/dL (0.8-1.5) L 06/16/18 07:19 Estimated GFR > 60 ml/min 06/16/18 07:19 BUN/Creatinine Ratio 8 % 06/16/18 07:19 Glucose 99 mg/dL (75-100) 06/16/18 07:19 POC Glucose 129 (70-105) H 06/16/18 12:18 Hemoglobin A1c 9.8 % (4-6) H 06/12/18 12:49 Lactic Acid 1.90 mmol/L (0.7-2.0) 06/12/18 08:57 Calcium 8.3 mg/dL (8.4-10.2) L 06/16/18 07:19 Phosphorus 1.50 mg/dL (2.5-4.5) L 06/15/18 09:54 Magnesium 1.70 mg/dL (1.7-2.3) 06/15/18 09:54 Total Bilirubin 0.60 mg/dL (0.1-1.2) 06/15/18 07:15 Direct Bilirubin 0.3 mg/dL (0-0.2) H 06/14/18 06:46 Indirect Bilirubin 0.5 mg/dL 06/14/18 06:46 AST 19 units/L (5-40) 06/15/18 07:15 ALT 31 units/L (7-56) 06/15/18 07:15 Alkaline Phosphatase 76 units/L (35-129) 06/15/18 07:15 Total Creatine Kinase 45 units/L (55-170) L 06/12/18 03:46 Troponin T < 0.010 ng/mL (0.00-0.029) 06/12/18 02:44 NT-Pro-B Natriuret Pep 41.86 pg/mL (0-900) 06/12/18 03:46 Total Protein 6.0 g/dL (6.3-8.2) L 06/15/18 07:15 Albumin 3.0 g/dL (3.9-5) L 06/15/18 07:15 Albumin/Globulin Ratio 1.0 % 06/15/18 07:15 Triglycerides 83 mg/dL (2-149) 06/12/18 12:49 Cholesterol 146 mg/dL (50-199) 06/12/18 12:49 LDL Cholesterol Direct 92 mg/dL (50-130) 06/12/18 12:49 HDL Cholesterol 44 mg/dL (40-59) 06/12/18 12:49 Cholesterol/HDL Ratio 3.31 % 06/12/18 12:49 Lipase 32 units/L (13-60) 06/12/18 03:46 Urine Color Yellow (Yellow) 06/12/18 09:40 Urine Turbidity Clear (Clear) 06/12/18 09:40 Urine pH 5.0 (5.0-7.0) 06/12/18 09:40 Ur Specific [place] 1.040 (1.003-1.030) H 06/12/18 09:40 Urine Protein <15 mg/dl mg/dL (Negative) 06/12/18 09:40 Urine Glucose (UA) >=500 mg/dL (Negative) 06/12/18 09:40 Urine Ketones Tr mg/dL (Negative) 06/12/18 09:40 Urine Blood Neg (Negative) 06/12/18 09:40 Urine Nitrite Neg (Negative) 06/12/18 09:40 Urine Bilirubin Neg (Negative) 06/12/18 09:40 Urine Urobilinogen < 2.0 mg/dL (<2.0) 06/12/18 09:40 Ur Leukocyte Esterase Neg (Negative) 06/12/18 09:40 Urine WBC (Auto) 2.0 /HPF (0.0-6.0) 06/12/18 09:40 Urine RBC (Auto) 2.0 /HPF (0.0-6.0) 06/12/18 09:40 Urine Mucus Few /HPF 06/12/18 09:40
[2018-06-16] MEDS: LANTUS SUB-Q SCH (21:22)
[2018-06-16 21:30] LABS: BUN/Creatinine Ratio 7; Blood Urea Nitrogen 4 mg/dL (9-20); Calcium 8.2 mg/dL (8.4-10.2); Hemolysis Index 10
[2018-06-17] MEDS: PERCOCET 5/325 PO PRN ×2 (01:25→06:14)
[2018-06-17] MEDS: HumaLOG SUB-Q SCH ×3 (01:26→12:31)
[2018-06-17 01:51] LABS: Basophils # (Auto) 0.1 K/mm3 (0.0-0.1); Eosinophils # (Auto) 0.6 K/mm3 (0.0-0.4); Eosinophils % (Auto) 7.1 % (0.0-4.3); Monocytes # (Auto) 0.5 K/mm3 (0.0-0.8); Monocytes % (Auto) 6.6 % (0.0-7.3)
[2018-06-17 02:03] LABS: Basophils % (Auto) 0.8 % (0.0-1.8); Hemoglobin 11.7 gm/dl (11.8-15.2); Lymphocytes # (Auto) 2.1 K/mm3 (1.2-5.4); Lymphocytes % (Auto) 27.2 % (13.4-35.0); Mean Corpuscular HGB Conc 35 % (32-34); Mean Corpuscular Hemoglobin 31 pg (28-32); Mean Corpuscular Volume 86 fl (84-94); Platelet Count 327 K/mm3 (140-440); Red Blood Count 3.83 M/mm3 (3.65-5.03); Red Cell Distribution Width 13.1 % (13.2-15.2)
[2018-06-17 02:09] LABS: BUN/Creatinine Ratio 6; Blood Urea Nitrogen 3 mg/dL (9-20); Calcium 8.5 mg/dL (8.4-10.2); Hemolysis Index 2
[2018-06-17] MEDS: HEPARIN SUB-Q SCH ×2 (06:09→16:21)
[2018-06-17 08:24] LABS: Hematocrit 33.7 % (35.5-45.6); Hemoglobin 11.9 gm/dl (11.8-15.2); Mean Corpuscular HGB Conc 35 % (32-34); Mean Corpuscular Hemoglobin 31 pg (28-32); Mean Corpuscular Volume 87 fl (84-94); Platelet Count 338 K/mm3 (140-440); Red Blood Count 3.87 M/mm3 (3.65-5.03); Red Cell Distribution Width 13.1 % (13.2-15.2)
[2018-06-17 08:32] LABS: BUN/Creatinine Ratio 6; Blood Urea Nitrogen 3 mg/dL (9-20); Calcium 8.7 mg/dL (8.4-10.2); Hemolysis Index 59
[2018-06-17] MEDS: KEPPRA PO SCH (09:51)
[2018-06-17 09:52] VITALS: BP 148/83
[2018-06-17] MEDS: NORVASC PO SCH (09:52)
[2018-06-17] MEDS: PHOS-NAK PO SCH (09:52)
--- NOTE | 2018-06-17 12:04 | Discharge Summary ---
<TERRY ROMAN - Last Filed: 06/17/18 12:09> Providers - Providers Date of Admission: 06/12/18 11:32 Date of discharge: 06/17/18 Attending physician: TERRY ROMAN 06/12/18 09:24 Consult to Physician [CONS] Urgent Comment: Consulting Provider: ASIF PENNY Physician Instructions: Reason For Exam: cholecystitis 06/12/18 14:23 Consult to Physician [CONS] Stat Comment: Consulting Provider: TONI BURDEN Physician Instructions: Reason For Exam: preop risk assessment, hx of 3 vessel disease Primary care physician: VEGETABLE GROWER Hospitalization Condition: Fair Disposition: DC-01 TO HOME OR SELFCARE Core Measure Documentation - Palliative Care Palliative Care/ Comfort Measures: Not Applicable - Core Measures Any of the following diagnoses?: none Exam - Constitutional Vitals: Temp Pulse Resp BP Pulse Ox 98.4 F 69 16 148/83 96 06/17/18 05:30 06/17/18 05:30 06/17/18 05:30 06/17/18 09:52 06/17/18 05:30 Plan Activity: no restrictions Diet: low fat, low cholesterol, low salt, diabetic Additional Instructions: 1.Follow up with PCP in 1 week. 2.Follow up with Dr. Penny in 2 weeks Follow up with: ASIF PENNY DO [Staff Physician] - 14 Days PRIMARY CARE, [Primary Care Provider] - 3-5 Days Prescriptions: amLODIPine [Norvasc] 5 mg PO DAILY #30 tablet oxyCODONE /ACETAMINOPHEN [Percocet 5/325 mg] 1 tab PO Q6H PRN #10 tablet PRN Reason: Pain, Moderate (4-6) Pot Phosphate/Na Phosphate [Phos-Nak] 1 each PO Q12HR 7 Days powd.pack <ASIF PENNY - Last Filed: 06/17/18 12:13> Providers - Providers Date of Admission: 06/12/18 11:32 Attending physician: TERRY ROMAN 06/12/18 09:24 Consult to Physician [CONS] Urgent Comment: Consulting Provider: ASIF PENNY Physician Instructions: Reason For Exam: cholecystitis 06/12/18 14:23 Consult to Physician [CONS] Stat Comment: Consulting Provider: TONI BURDEN Physician Instructions: Reason For Exam: preop risk assessment, hx of 3 vessel disease Primary care physician: VEGETABLE GROWER Exam - Constitutional Vitals: Temp Pulse Resp BP Pulse Ox 98.4 F 69 16 148/83 96 06/17/18 05:30 06/17/18 05:30 06/17/18 05:30 06/17/18 09:52 06/17/18 05:30 Plan Activity: other (no driving if taking narcotic pain meds. no heavy lifting greater than 15 lbs for 2 weeks) Wound: open to air (may shower, pat incisions dry, do not scrub. do not submerge incisions in baths/hottubs/pools)
--- NOTE | 2018-06-17 13:11 | Progress Note ---
Assessment and Plan 58 yo M s/p laparoscopic cholecystectomy POD 3 for gangrenous cholecystitis Plan: 1. reg diet 2. diarrhea likely reactive from intraabdominal infection from cholecystitis, stool studies pending. 4. OOB/ambulate 5. DVT ppx 6. prn pain control The patient is stable for discharge from a surgical standpoint. Discussed with Dr. Morales. Thank you for this consultation, please call with any questions or concerns Subjective Date of service: 06/17/18 Narrative: Patient seen and examined. He states he feels much better today. Abdominal pain is improved. Diarrhea has improved. No fevers, chills, nausea, vomiting. He is tolerating a diet. Objective Vital Signs - 12hr 06/17/18 06/17/18 05:30 09:52 Temperature 98.4 F Pulse Rate 69 Respiratory 16 Rate Blood Pressure 164/93 148/83 O2 Sat by Pulse 96 Oximetry - General physical appearance Narrative Exam: Gen.: Awake, alert, oriented 3. No apparent distress CV: S1, S2 present Respiratory: Even and unlabored Abdomen: Soft, nondistended Extremities: No clubbing, cyanosis, edema - Labs 06/17/18 07:08 06/17/18 07:08 Diabetes panel 06/16/18 06/17/18 06/17/18 Range/Units 20:50 01:35 07:08 Sodium 137 136 L 138 (137-145) mmol/L Potassium 3.1 L 3.3 L 3.6 (3.6-5.0) mmol/L Chloride 97.8 L 97.8 L 97.9 L (98-107) mmol/L Carbon Dioxide 25 27 29 (22-30) mmol/L BUN 4 L 3 L 3 L (9-20) mg/dL Creatinine 0.6 L 0.5 L 0.5 L (0.8-1.5) mg/dL Glucose 166 H 218 H 197 H (75-100) mg/dL Calcium 8.2 L 8.5 8.7 (8.4-10.2) mg/dL Calcium panel 06/16/18 06/17/18 06/17/18 Range/Units 20:50 01:35 07:08 Calcium 8.2 L 8.5 8.7 (8.4-10.2) mg/dL Phosphorus 3.00 D (2.5-4.5) mg/dL Pituitary panel 06/16/18 06/17/18 06/17/18 Range/Units 20:50 01:35 07:08 Sodium 137 136 L 138 (137-145) mmol/L Potassium 3.1 L 3.3 L 3.6 (3.6-5.0) mmol/L Chloride 97.8 L 97.8 L 97.9 L (98-107) mmol/L Carbon Dioxide 25 27 29 (22-30) mmol/L BUN 4 L 3 L 3 L (9-20) mg/dL Creatinine 0.6 L 0.5 L 0.5 L (0.8-1.5) mg/dL Glucose 166 H 218 H 197 H (75-100) mg/dL Calcium 8.2 L 8.5 8.7 (8.4-10.2) mg/dL Adrenal panel 06/16/18 06/17/18 06/17/18 Range/Units 20:50 01:35 07:08 Sodium 137 136 L 138 (137-145) mmol/L Potassium 3.1 L 3.3 L 3.6 (3.6-5.0) mmol/L Chloride 97.8 L 97.8 L 97.9 L (98-107) mmol/L Carbon Dioxide 25 27 29 (22-30) mmol/L BUN 4 L 3 L 3 L (9-20) mg/dL Creatinine 0.6 L 0.5 L 0.5 L (0.8-1.5) mg/dL Glucose 166 H 218 H 197 H (75-100) mg/dL Calcium 8.2 L 8.5 8.7 (8.4-10.2) mg/dL
== END 2018-06-17 16:05 | disposition home or self-care (01) | DRG 854 ==
LOC: ED 19:49 → 3A 06-12 11:32
PROVIDERS: ADMIT Family Medicine; ATTEND Internal Medicine
PROC: 0FT44ZZ Resection of Gallbladder, Percutaneous Endoscopic Approach (ICD-10-PCS; principal; 2018-06-14)
PROC: 0DNU4ZZ Release Omentum, Percutaneous Endoscopic Approach (ICD-10-PCS; 2018-06-14)
PROC: 0DNW4ZZ Release Peritoneum, Percutaneous Endoscopic Approach (ICD-10-PCS; 2018-06-14)
DX: A41.9 Sepsis, unspecified organism (principal); K81.0 Acute cholecystitis; E11.65 Type 2 diabetes mellitus with hyperglycemia; I10 Essential (primary) hypertension; E83.42 Hypomagnesemia; E87.6 Hypokalemia; G40.909 Epilepsy, unspecified, not intractable, without status epilepticus; I25.10 Atherosclerotic heart disease of native coronary artery without angina pectoris; F10.10 Alcohol abuse, uncomplicated; K66.0 Peritoneal adhesions (postprocedural) (postinfection); Z91.14 Patient's other noncompliance with medication regimen; Z82.49 Family history of ischemic heart disease and other diseases of the circulatory system; Z88.5 Allergy status to narcotic agent; Z79.899 Other long term (current) drug therapy
CPT/HCPCS: 36415; 71046; 71275; 74177; 76705; 80048; 80053; 80061; 80074; 81001; 82140; 82248; 82271; 82550; 82962; 83036; 83690; 83735; 83880; 84100; 84484; 85007; 85025; 85027; 87040; 87045; 87086; 88304; 93005; 93010; 96361; 96365; 96366; 96375; 96376; A4217; J0696; J1170; J1644; J1815; J1953; J2270; J2405; J2543; J2704; J2710; J2765; J3010; J3475; J3480; J7030; J7040; J7120; Q9967

== ENCOUNTER 2018-07-16 10:25 | Emergency (ER) | payer SELFPAY ==
[2018-07-16 11:08] LABS: Basophils # (Auto) 0.1 K/mm3 (0.0-0.1); Basophils % (Auto) 1.2 % (0.0-1.8); Eosinophils # (Auto) 0.4 K/mm3 (0.0-0.4); Eosinophils % (Auto) 5.6 % (0.0-4.3); Hematocrit 37.8 % (35.5-45.6); Hemoglobin 13.2 gm/dl (11.8-15.2); Lymphocytes # (Auto) 2.5 K/mm3 (1.2-5.4); Lymphocytes % (Auto) 35.6 % (13.4-35.0); Mean Corpuscular HGB Conc 35 % (32-34); Mean Corpuscular Hemoglobin 31 pg (28-32); Mean Corpuscular Volume 88 fl (84-94); Monocytes # (Auto) 0.5 K/mm3 (0.0-0.8); Monocytes % (Auto) 7.5 % (0.0-7.3); Platelet Count 238 K/mm3 (140-440)
[2018-07-16 11:29] LABS: Alanine Aminotransferase 12 units/L (7-56); Albumin 4.4 g/dL (3.9-5); BUN/Creatinine Ratio 10; Blood Urea Nitrogen 7 mg/dL (9-20); Calcium 9.7 mg/dL (8.4-10.2); Hemolysis Index 19
[2018-07-16] MEDS ORDERED: NACL 0.9% 1000 ML 1,000 ML IV ONE (12:02)
[2018-07-16] MEDS ORDERED: TORADOL IV ONE (12:45)
--- NOTE | 2018-07-16 15:38 | Emergency Department Report ---
HPI - General Chief Complaint: Medical Clearance Time Seen by Provider: 07/16/18 11:39 - HPI HPI: The patient is a 58-year-old male with a significant history of gangrenous GB 4 weeks ago, who presents for evaluation of on and off abdominal pain for the past 3 weeks. She states that for the past 3 weeks she has experienced transient sharp right-sided abdominal pains, moderate to severe when present, lasting for 20-30 seconds at a time, exacerbated with certain position changes. He also reports associated recurrent low-grade fevers. The patient denies trauma to the abdomen, back pain, diarrhea, blood in the stool, dark tarry stool , dysuria, hematuria, flank pain, genital discharge, inability to pass flatus, rash, sick exposures, or recent travel outside the country. ED Past Medical Hx - Past Medical History Hx Hypertension: Yes Hx Diabetes: Yes Hx Seizures: Yes (Most recent in March. Three since September.) Additional medical history: CAD - Social History Smoking Status: Never Smoker - Medications Home Medications: Home Medications Medication Instructions Recorded Confirmed Last Taken Type OXcarbazepine [Trileptal] 300 mg PO BID 06/12/18 06/12/18 06/11/18 16:00 History Metformin HCl 500 mg PO BID #60 tablet 06/17/18 Unknown Rx Pot Phosphate/Na Phosphate 1 each PO Q12HR 7 Days powd.pack 06/17/18 Unknown Rx [Phos-Nak] Promethazine [Phenergan TAB] 25 mg PO Q6HR PRN #20 tab 06/17/18 Unknown Rx amLODIPine [Norvasc] 5 mg PO DAILY #30 tablet 06/17/18 Unknown Rx oxyCODONE /ACETAMINOPHEN [Percocet 1 tab PO Q6H PRN #10 tablet 06/17/18 Unknown Rx 5/325 mg] HYDROcodone/APAP 7.5-325 [[place] 1 each PO Q8HR PRN #15 tablet 07/16/18 Unknown Rx 7.5-325 mg TAB] Ondansetron [Zofran TAB] 4 mg PO Q8HR PRN #15 tablet 07/16/18 Unknown Rx ED Review of Systems ROS: Stated complaint: CT/BLOODWORK RESULTS OF OPERATION Other details as noted in HPI Constitutional: denies: fever ENT: denies: throat or neck pain Respiratory: denies: cough, shortness of breath Cardiovascular: denies: chest pain Endocrine: denies unexplained weight loss or gain Gastrointestinal: reports abdominal pain, nausea Genitourinary: denies: dysuria Musculoskeletal: denies: leg swelling Skin: denies: rash Neurological: denies: headache Hematological/Lymphatic: denies: easy bleeding or easy bruising Psych: denies sadness or hopelessness Physical Exam - Physical Exam Vital Signs: Vital Signs 07/16/18 07/16/18 10:35 10:38 Temperature 98.2 F Pulse Rate 96 H Respiratory 16 18 Rate Blood Pressure 171/89 O2 Sat by Pulse 99 Oximetry Physical Exam: General: well-nourished, well-developed, no acute distress Head: Normocephalic, atraumatic Eyes: normal sclera ENT: Mucous membranes are pink and moist Neck: trachea midline, neck supple, No neck stiffness, no cervical adenopathy Respiratory: Breath sounds equal bilaterally, no wheezing, rales, or rhonchi Cardio: S1 and S2 present, no murmurs, rubs, gallops, capillary refill is brisk Abdomen: Normoactive bowel sounds, soft abdomen, RLQ abd pain, no rigidity, no guarding or rebound tenderness Musc: No pitting edema Skin: No rash Neuro: no facial drooping, normal speech Psych: Normal affect ED Course Vital Signs 07/16/18 07/16/18 10:35 10:38 Temperature 98.2 F Pulse Rate 96 H Respiratory 16 18 Rate Blood Pressure 171/89 O2 Sat by Pulse 99 Oximetry ED Medical Decision Making - Lab Data Result diagrams: 07/16/18 10:49 07/16/18 10:49 - Medical Decision Making The patient was seen and examined by myself. The patient is placed on a scrap worker and continuous pulse ox. On initial evaluation, the patient was found to be in no distress. Evaluation orders are placed. IV access is established and the patient is given IV analgesic for pain. Lab results revealed mildly elevated glucose of 249, and otherwise labs were non-concerning including WBC, hemoglobin, hematocrit, electrolytes, renal function, LFTs, lipase. The patient is given 1 L normal saline fluid bolus treatment of hyperglycemia. CT scan of the abdomen and pelvis with and without contrast is obtained and is negative for findings concerning for bowel obstruction, perforation, abscess, serious infection, or other emergent disease process. The patient's general surgeon Dr. Weems was contacted. She reviewed the patient's CT scan findings and agreed that the patient's CT scan was negative for emergent disease process, and that the patient is stable for discharge and outpatient follow-up. The patient was reevaluated and reported that their symptoms were markedly improved. The patient is stable for discharge with outpatient follow-up. The patient is given follow-up and return instructions. The patient expressed understanding and agreed with the plan. The patient is discharged in stable condition. Critical care attestation.: If time is entered above; I have spent that time in minutes in the direct care of this critically ill patient, excluding procedure time. ED Disposition Clinical Impression: Acute abdominal pain in right lower quadrant, Abdominal pain, RUQ (right upper quadrant), Acute hyperglycemia Disposition: - TO HOME OR SELFCARE Is pt being admited?: No Does the pt Need Aspirin: No Condition: Stable Instructions: Abdominal Pain (ED) Referrals: PRIMARY CAREMD [Primary Care Provider] - 3-5 Days Time of Disposition: 17:01
--- NOTE | 2018-07-16 16:45 | Cat Scan Report ---
FINAL REPORT PROCEDURE: Unenhanced CT scan of the abdomen and pelvis followed by contrast-enhanced CT scan of the abdomen and pelvis TECHNIQUE: Computerized axial tomography of the abdomen and pelvis was performed without contrast followed by computerized axial tomography of the abdomen and pelvis after the IV injection of iodinated nonionic contrast. HISTORY: abd pain, fever, hx bowel gangrene, r/o abscess COMPARISON: No prior studies are available for comparison. FINDINGS: Lower Lung [place]: Lung bases are clear. Calcifications are seen in the velez of the coronary arteries indicating atherosclerotic disease. Upper Abdomen: Gallbladder is surgically absent. The intrahepatic ducts are not distended. Liver is unremarkable. The adrenal glands, the pancreas and spleen are unremarkable. Kidneys, Ureters and Urinary bladder: Several low-density nodules project from the renal cortex of both kidneys which appear to represent renal cortical cyst. There is a thin peripheral calcification in a suspected cyst in the lower 3rd of the right kidney measuring 2.5 centimeters laterally. Kidneys ureters and urinary bladder otherwise are unremarkable. Retroperitoneum: Atherosclerotic changes are seen in the abdominal aorta and iliac arteries.. No aneurysm is visualized. Nonspecific subcentimeter lymph nodes are seen in the retroperitoneum. No pathologically enlarged lymph nodes are identified. Bowel: Minimal diverticulosis seen left side of the colon without evidence of diverticulitis. The colon is otherwise unremarkable. No evidence of bowel obstruction ascites or free intraperitoneal gas. No abnormal fluid collections are seen that would suggest an abscess. Normal-appearing appendix seen right lower quadrant. Bowel loops show no focal abnormalities. The stomach is also unremarkable. Small left inguinal hernia containing adipose tissue visualized. No herniated loops of bowel are seen. Minimal umbilical hernia containing adipose tissue also visualized. Reproductive organs: There is nonspecific marked diffuse enlargement of the prostate gland. Other: No acute bony abnormalities are seen per IMPRESSION: There is nonspecific marked diffuse prostate enlargement. Prior cholecystectomy. Minimal diverticulosis left side of the colon without evidence of diverticulitis. No acute bowel loop abnormalities are seen. Small left inguinal hernia and small umbilical hernia present as described. Renal cortical cyst visualized bilaterally. One contains a thin peripheral calcification likely benign. Consider follow-up renal ultrasound 6 months to ensure stability. Atherosclerosis coronary arteries.
[2018-07-16 17:24] VITALS: BP 171/90
== END 2018-07-16 17:24 | disposition home or self-care (01) ==
LOC: ED 10:25
DX: R10.11 Right upper quadrant pain (principal); R10.31 Right lower quadrant pain; R50.9 Fever, unspecified; E11.65 Type 2 diabetes mellitus with hyperglycemia; I10 Essential (primary) hypertension; Z79.84 Long term (current) use of oral hypoglycemic drugs; Z88.5 Allergy status to narcotic agent
CPT/HCPCS: 36415; 74178; 80053; 85025; 96361; 96374; 99284; J1885; J7030; Q9967

== ENCOUNTER 2022-06-09 01:46 | Inpatient (IN) | payer SELFPAY ==
--- NOTE | 2022-06-09 11:45 | XRay Report ---
CHEST 2 VIEWS INDICATION / CLINICAL INFORMATION: Chest Pain STUDY TIME: 1114 COMPARISON: 06/12/2018 FINDINGS: SUPPORT DEVICES: None. HEART / MEDIASTINUM: Interval median sternotomy and cardiac surgical changes. Heart size appears with in normal limits as does pulmonary vascularity. LUNGS / PLEURA: No significant acute pulmonary or pleural abnormality. No pneumothorax. ADDITIONAL FINDINGS: No significant additional findings. Signer Name: Leeroy Darby MD Signed: 06/09/2022 11:39 AM Workstation Name: [id number]
[2022-06-09 12:41] LABS: Basophils # (Auto) 0.1 K/mm3 (0.0-0.1); Basophils % (Auto) 0.9 % (0.0-1.8); Eosinophils # (Auto) 0.3 K/mm3 (0.0-0.4); Hematocrit 38.5 % (35.5-45.6); Hemoglobin 12.5 gm/dl (11.8-15.2); Lymphocytes # (Auto) 2.2 K/mm3 (1.2-5.4); Lymphocytes % (Auto) 19.4 % (13.4-35.0); Mean Corpuscular HGB Conc 33 % (32-34); Mean Corpuscular Volume 86 fl (84-94); Monocytes # (Auto) 0.7 K/mm3 (0.0-0.8); Monocytes % (Auto) 6.5 % (0.0-7.3); Platelet Count 354 K/mm3 (140-440); Red Blood Count 4.48 M/mm3 (3.65-5.03); Red Cell Distribution Width 15.8 % (13.2-15.2)
[2022-06-09 13:37] LABS: Alanine Aminotransferase 11 units/L (7-56); Albumin 4.3 g/dL (3.9-5); BUN/Creatinine Ratio 16; Blood Urea Nitrogen 14 mg/dL (9-20); Calcium 10.4 mg/dL (8.4-10.2); Hemolysis Index 45
--- NOTE | 2022-06-10 08:40 | Electrocardiograph Report ---
[facility] Test Date: 2022-06-09 Test Time: 11:03:18 Pat Name: SARAH CARRIZALES Department: Room: Gender: M Energy Analyst: KATHLEEN : 1960 Requested By: BENNIE BAGLEY Order Number: [id number] Reading MD: Anthony Wheat Measurements Intervals [place] Rate: 68 P: 49 GA: 133 QRS: -49 QRSD: 122 T: 160 QT: 407 QTc: 433 Interpretive Statements Sinus rhythm nonspecific st-t LVH with secondary repolarization abnormality No previous ECG available for comparison Electronically Signed On 06-10-2022 8:40:22 EDT by Anthony Wheat
[2022-06-10] MEDS ORDERED: ASPIRIN 325 MG TAB PO ONE ×2 (10:10→13:00)
--- NOTE | 2022-06-10 10:10 | Emergency Department Report ---
ED Chest Pain HPI - General Chief Complaint: Chest Pain Stated Complaint: CHEST PAIN Time Seen by Provider: 06/10/22 09:41 Source: patient, EMS, old records reviewed Mode of arrival: Ambulatory Limitations: No Limitations - History of Present Illness Initial Comments: 62-year-old home male with a past medical history of hypertension, diabetes, seizures, and CAD with history of 5 vessel bypass surgery 1 year ago presents to the hospital complaining of chest pain. Patient states he has had intermittent chest pain since his bypass surgery last year but for the last several days pain has been more severe. Pain is a moderate intermittent chest pressure mild exacerbated by palpation and exertion. No complaints of shortness of breath, recent nausea, vomiting, or diaphoresis. Patient states that he was diagnosed with a UTI 1 week ago at the [facility] but has been unable to take his antibiotics. He denies stent placement and is not currently on anticoagulants. He has been noncompliant with his medications for approximately 1 month Severity scale (0 -10): 3 - Related Data Home Medications Medication Instructions Recorded Confirmed Last Taken OXcarbazepine [Trileptal] 300 mg PO BID 06/12/18 06/12/18 06/11/18 16:00 Previous Rx's Medication Instructions Recorded Last Taken Type Metformin HCl 500 mg PO BID #60 tablet 06/17/18 Unknown Rx Pot Phosphate/Na Phosphate 1 each PO Q12HR 7 Days powd.pack 06/17/18 Unknown Rx [Phos-Nak] Promethazine [Phenergan] 25 mg PO Q6HR PRN #20 tab 06/17/18 Unknown Rx amLODIPine 5 mg PO DAILY #30 tablet 06/17/18 Unknown Rx oxyCODONE /ACETAMINOPHEN [Percocet 1 tab PO Q6H PRN #10 tablet 06/17/18 Unknown Rx 5/325 mg] HYDROcodone/APAP 7.5-325 [[place] 1 each PO Q8HR PRN #15 tablet 07/16/18 Unknown Rx 7.5-325 mg TAB] Ondansetron [Zofran TAB] 4 mg PO Q8HR PRN #15 tablet 07/16/18 Unknown Rx Allergies Allergy/AdvReac Type Severity Reaction Status Date / Time codeine Allergy Unknown Verified 06/11/18 20:05 Heart Score - HEART Score History: Slightly suspicious EKG: Non-specific Age: 45-65 Risk factors: > 3 risk factors or hx of atherosclerotic disease Troponin: < normal limit HEART Score: 4 - EKG Read Time Time EKG Completed: 11:03 EKG Read Time: 11:07 ED Review of Systems ROS: Stated complaint: CHEST PAIN Other details as noted in HPI Comment: All other systems reviewed and negative ED Past Medical Hx - Past Medical History Hx Hypertension: Yes Hx Diabetes: Yes Hx Seizures: Yes (Most recent in March. Three since September.) Additional medical history: CAD - Social History Smoking Status: Never Smoker - Medications Home Medications: Home Medications Medication Instructions Recorded Confirmed Last Taken Type OXcarbazepine [Trileptal] 300 mg PO BID 06/12/18 06/12/18 06/11/18 16:00 History Metformin HCl 500 mg PO BID #60 tablet 06/17/18 Unknown Rx Pot Phosphate/Na Phosphate 1 each PO Q12HR 7 Days powd.pack 06/17/18 Unknown Rx [Phos-Nak] Promethazine [Phenergan] 25 mg PO Q6HR PRN #20 tab 06/17/18 Unknown Rx amLODIPine 5 mg PO DAILY #30 tablet 06/17/18 Unknown Rx oxyCODONE /ACETAMINOPHEN [Percocet 1 tab PO Q6H PRN #10 tablet 06/17/18 Unknown Rx 5/325 mg] HYDROcodone/APAP 7.5-325 [[place] 1 each PO Q8HR PRN #15 tablet 07/16/18 Unknown Rx 7.5-325 mg TAB] Ondansetron [Zofran TAB] 4 mg PO Q8HR PRN #15 tablet 07/16/18 Unknown Rx ED Physical Exam - General Limitations: No Limitations - Other Other exam information: General: No acute distress Head: Atraumatic Eyes: normal appearance ENT: Moist mucous membranes Neck: Normal appearance, no midline tenderness Chest: Clear to auscultation bilaterally, mild anterior chest wall tenderness CV: Regular rate and rhythm Abdomen: Soft, normal bowel sounds, nontender, nondistended, no rebound or guarding Back: Normal inspection Extremity: Normal inspection, full range of motion, no calf tenderness or leg edema Neuro: Alert O x 3, no facial asymmetry, speech clear, no gross motor sensory deficit Psych: Appropriate behavior Skin: No rash ED Course Vital Signs 06/09/22 06/10/22 06/10/22 02:25 09:28 09:29 Temperature 98.2 F 98.6 F Pulse Rate 83 74 Respiratory 16 19 Rate Blood Pressure 164/87 181/87 [Right] O2 Sat by Pulse 100 99 99 Oximetry YOBANI score - Yobani Score Age > 65: (0) No Aspirin use within the Past 7 Days: (0) No 3 or more CAD Risk Factors: (1) Yes 2 or more Angina events in past 24 hrs: (1) Yes Known CAD with more than 50% Stenosis: (1) Yes Elevated Cardiac Markers: (0) No ST Deviation Greater than 0.5mm: (0) No YOBANI Score: 3 ED Medical Decision Making - Lab Data Result diagrams: 06/09/22 11:31 06/09/22 11:31 Lab Results 06/09/22 06/09/22 Range/Units 11:31 11:31 WBC 11.5 H (4.5-11.0) K/mm3 RBC 4.48 (3.65-5.03) M/mm3 Hgb 12.5 (11.8-15.2) gm/dl Hct 38.5 (35.5-45.6) % MCV 86 (84-94) fl MCH 28 (28-32) pg MCHC 33 (32-34) % RDW 15.8 H (13.2-15.2) % Plt Count 354 (140-440) K/mm3 Lymph % (Auto) 19.4 (13.4-35.0) % [place] % (Auto) 6.5 (0.0-7.3) % Eos % (Auto) 3.0 (0.0-4.3) % Baso % (Auto) 0.9 (0.0-1.8) % Lymph # (Auto) 2.2 (1.2-5.4) K/mm3 [place] # (Auto) 0.7 (0.0-0.8) K/mm3 Eos # (Auto) 0.3 (0.0-0.4) K/mm3 Baso # (Auto) 0.1 (0.0-0.1) K/mm3 Seg Neutrophils % 70.2 H (40.0-70.0) % Seg Neutrophils # 8.1 H (1.8-7.7) K/mm3 Sodium 141 (137-145) mmol/L Potassium 4.6 (3.6-5.0) mmol/L Chloride 105.3 (98-107) mmol/L Carbon Dioxide 27 (22-30) mmol/L Anion Gap 13 mmol/L BUN 14 (9-20) mg/dL Creatinine 0.9 (0.8-1.3) mg/dL Estimated GFR > 60 ml/min BUN/Creatinine Ratio 16 % Glucose 174 H (75-100) mg/dL Calcium 10.4 H (8.4-10.2) mg/dL Total Bilirubin 0.50 (0.1-1.2) mg/dL AST 16 (5-40) units/L ALT 11 (7-56) units/L Alkaline Phosphatase 83 (35-129) units/L Troponin T 0.022 (0.00-0.029) ng/mL Total Protein 7.4 (6.3-8.2) g/dL Albumin 4.3 (3.9-5) g/dL Albumin/Globulin Ratio 1.4 % - EKG Data -: EKG Interpreted by [facility] EKG shows normal: sinus rhythm, ST-T waves (NO STEMI) Rate: normal - Radiology Data Radiology results: report reviewed CHEST 2 VIEWS INDICATION / CLINICAL INFORMATION: Chest Pain STUDY TIME: 1114 COMPARISON: 06/12/2018 FINDINGS: SUPPORT DEVICES: None. HEART / MEDIASTINUM: Interval median sternotomy and cardiac surgical changes. Heart size appears within normal limits as does pulmonary vascularity. LUNGS / PLEURA: No significant acute pulmonary or pleural abnormality. No pneumothorax. ADDITIONAL FINDINGS: No significant additional findings. - Medical Decision Making 62-year-old male in the ED for greater than 24 hours with complaints of chest pain. Positive significant history of CAD with multiple risk factors noncompliant with medications including antiplatelet medication. Initial troponin was negative. Repeat troponin is currently pending at time of disposition. EKG without significant changes compared to previous. Previous cardiac work-up unclear based on medical record review. Patient will be admitted to the hospitalist service for further cardiac evaluation Critical Care Time: No Critical care attestation.: If time is entered above; I have spent that time in minutes in the direct care of this critically ill patient, excluding procedure time. ED Disposition Clinical Impression: Chest pain, CAD (coronary artery disease) Disposition: ADMITTED INPATIENT Is pt being admited?: Yes Condition: Stable Time of Disposition: 10:10 (dR Ty)
[2022-06-10] MEDS ORDERED: ACETAMINOPHEN 325 MG TAB PO PRN (10:43)
[2022-06-10 11:05] LABS: Chol/HDL Ratio 4.73 %
--- NOTE | 2022-06-10 11:34 | History and Physical Report ---
History of Present Illness Date of examination: 06/10/22 Date of admission: 06/10/22 10:43 Chief complaint: Chest pain of 1 week duration worse since last night History of present illness: Very pleasant 62-year-old male patient with significant past medical history of hypertension, diabetes mellitus, history of seizures, coronary artery disease status post CABG 1 year ago, presented to the emergency room with left-sided chest pain 5 to 7 days duration worse since last night. Patient grades his chest pain between 3-5, moderate intensity intermittent, worse on exertion Patient denies nausea vomiting or diaphoresis, denies shortness of breath. No history of orthopnea or paroxysmal nocturnal dyspnea. Denies headache dizziness weakness or numbness, denies fever or cough. Initial evaluation in the ED for set of cardiac enzymes were negative however second set has mild elevation of troponin. EKG no acute ST-T changes noted, patient symptoms significantly improved The time of my evaluation patient did not have any chest pain Past History Past Medical History: CAD, diabetes, hypertension, seizures Past Surgical History: CABG Social history: alcohol abuse. denies: smoking, prescription drug abuse, IV drug use Family history: no significant family history Medications and Allergies Allergies Allergy/AdvReac Type Severity Reaction Status Date / Time codeine Allergy Unknown Verified 06/11/18 20:05 Home Medications Medication Instructions Recorded Confirmed Last Taken Type OXcarbazepine [Trileptal] 300 mg PO BID 06/12/18 06/12/18 06/11/18 16:00 History Metformin HCl 500 mg PO BID #60 tablet 06/17/18 Unknown Rx Pot Phosphate/Na Phosphate 1 each PO Q12HR 7 Days powd.pack 06/17/18 Unknown Rx [Phos-Nak] Promethazine [Phenergan] 25 mg PO Q6HR PRN #20 tab 06/17/18 Unknown Rx amLODIPine 5 mg PO DAILY #30 tablet 06/17/18 Unknown Rx oxyCODONE /ACETAMINOPHEN [Percocet 1 tab PO Q6H PRN #10 tablet 06/17/18 Unknown Rx 5/325 mg] HYDROcodone/APAP 7.5-325 [[place] 1 each PO Q8HR PRN #15 tablet 07/16/18 Unknown Rx 7.5-325 mg TAB] Ondansetron [Zofran TAB] 4 mg PO Q8HR PRN #15 tablet 07/16/18 Unknown Rx Active Meds: Active Medications Acetaminophen (Acetaminophen 325 Mg Tab) 650 mg PO Q4H PRN PRN Reason: Pain MILD(1-3)/Fever >100.5/GIRALDO Morphine Sulfate (Morphine 2 Mg/1 Ml Inj) 2 mg IV Q4H PRN PRN Reason: Pain, Moderate (4-6) Ondansetron HCl (Ondansetron 4 Mg/2 Ml Inj) 4 mg IV Q8H PRN PRN Reason: Nausea And Vomiting Sodium Chloride (Sodium Chloride 0.9% 10 Ml Flush Syringe) 10 ml IV BID OSCAR Sodium Chloride (Sodium Chloride 0.9% 10 Ml Flush Syringe) 10 ml IV PRN PRN PRN Reason: LINE FLUSH Review of Systems Constitutional: fatigue, no weight loss, no weight gain Ears, nose, mouth and throat: no nasal congestion, no nasal discharge Cardiovascular: chest pain, no orthopnea, no palpitations, no rapid/irregular heart beat, no shortness of breath Respiratory: no cough, no shortness of breath Gastrointestinal: no abdominal pain, no nausea, no vomiting Genitourinary Male: no dysuria, no hematuria Musculoskeletal: no myalgias, no arthritis Integumentary: no rash, no lesions Neurological: no seizures, no syncope Psychiatric: no anxiety, no depression Endocrine: no cold intolerance, no heat intolerance Hematologic/Lymphatic: no easy bruising, no easy bleeding Allergic/Immunologic: no urticaria, no allergic rhinitis Exam - Constitutional Vitals: Temp Pulse Resp BP Pulse Ox 98.6 F 74 19 181/87 99 06/10/22 09:28 06/10/22 09:28 06/10/22 09:28 06/10/22 09:28 06/10/22 09:29 General appearance: Present: no acute distress, well-nourished - EENT Eyes: Present: PERRL, EOM intact - Neck Neck: Present: supple, normal ROM - Respiratory Respiratory effort: normal Respiratory: bilateral: diminished, negative: rales, rhonchi, wheezing - Cardiovascular Rhythm: regular Heart Sounds: Present: S1 & S2 - Extremities Extremities: no ischemia, No edema - Abdominal General gastrointestinal: Present: soft, non-tender, non-distended, normal bowel sounds - Integumentary Integumentary: Present: clear, warm - Musculoskeletal Musculoskeletal: strength equal bilaterally - Psychiatric Psychiatric: appropriate mood/affect, cooperative - Neurologic Neurologic: moves all extremities HEART Score - HEART Score EKG: Non-specific Age: 45-65 Risk factors: > 3 risk factors or hx of atherosclerotic disease Troponin: Troponin T 0.040 ng/mL (0.00-0.029) H D 06/10/22 09:20 Troponin: < normal limit Results - Labs CBC & Chem 7: 06/09/22 11:31 06/09/22 11:31 Labs: Abnormal lab results 06/09/22 06/09/22 06/10/22 Range/Units 11:31 11:31 09:20 WBC 11.5 H (4.5-11.0) K/mm3 RDW 15.8 H (13.2-15.2) % Seg Neutrophils % 70.2 H (40.0-70.0) % Seg Neutrophils # 8.1 H (1.8-7.7) K/mm3 Glucose 174 H (75-100) mg/dL Calcium 10.4 H (8.4-10.2) mg/dL Troponin T 0.040 H D (0.00-0.029) ng/mL LDL Cholesterol Direct 142 H (50-130) mg/dL Assessment and Plan - Patient Problems (1) Chest pain Current Visit: Yes Status: Acute Plan to address problem: Chest pain evaluate for acute coronary syndrome, patient has multiple risk factors Serial cardiac enzyme, serial EKGs, echocardiogram for LV function ejection fraction Aspirin, beta-blockers, nitrates, morphine, BUDDY inhibitors and statin Cardiology consultation (2) Non-ST elevation (NSTEMI) myocardial infarction Current Visit: Yes Status: Acute Plan to address problem: Elevated troponins, patient has multiple risk factors, history of coronary artery disease status post CABG However chest pain significantly improved, cardiac medications, echocardiogram Keep n.p.o. from midnight, supportive care (3) CAD (coronary artery disease) Current Visit: Yes Status: Chronic Plan to address problem: S/p CABG 1 year ago[patient does not know the details] Patient is not on any cardiac medications Managed with aspirin, beta-blockers, BUDDY inhibitors, nitrates, morphine And statin, follow echocardiogram Cardiology consult (4) HTN (hypertension) Current Visit: No Status: Chronic Plan to address problem: Moderate control, (5) Dyslipidemia Current Visit: Yes Status: Acute Plan to address problem: Low-cholesterol diet, statin (6) History of seizure disorder Current Visit: Yes Status: Acute Plan to address problem: Seizure precautions, home antiepileptic medications, supportive care (7) Type 2 diabetes mellitus Current Visit: Yes Status: Acute Plan to address problem: Accu-Chek, sliding scale coverage, ADA diet, insulin as needed Patient is not on medications (8) Noncompliance with medication regimen Current Visit: Yes Status: Acute Plan to address problem: Counseling done strongly advised to comply with medications, diet, follow-up visits Patient verbalized understanding (9) DVT prophylaxis Current Visit: Yes Status: Acute Plan to address problem: Lovenox (10) Full code status Current Visit: Yes Status: Acute Plan to address problem: We will closely monitor the patient and adjust management as needed Plan of care reviewed with the patient and his nurse Discharge planning per case management when patient is stable
[2022-06-10 16:43] LABS: Creatine Kinase MB 6.4 ng/mL (0.0-4.0)
[2022-06-10] MEDS ORDERED: DOCUSATE SODIUM 100 MG CAP PO PRN (20:42)
[2022-06-10] MEDS ORDERED: NITROGLYCERIN 0.4 MG TAB SUBL SL PRN (20:42)
--- NOTE | 2022-06-10 21:03 | Event Note ---
Date: 06/10/22 I have seen and re-evaluated the patient Patient is comfortable sitting and doing his computer work Denies any chest pain or shortness of breath Feels much better, vital signs stable We will continue current management Place him n.p.o. from midnight Cardiology consult in the morning
[2022-06-11] MEDS: carvediloL 6.25 MG TAB PO SCH ×2 (00:50→10:10)
[2022-06-11] MEDS: ENOXAPARIN 80 MG/0.8 ML INJ SUB-Q SCH ×3 (00:50→21:42)
[2022-06-11] MEDS: OXcarbazepine 300 MG TAB PO SCH ×2 (00:51→10:10)
[2022-06-11] MEDS: FAMOTIDINE 20 MG/2 ML INJ IV SCH ×3 (00:57→21:43)
[2022-06-11 08:29] LABS: Creatine Kinase MB 5.8 ng/mL (0.0-4.0)
--- NOTE | 2022-06-11 08:51 | Progress Note ---
Assessment and Plan Assessment and plan: -- Chest pain/angina at rest Serial cardiac enzymes, serial EKGs Follow echocardiogram and ejection fraction, continue Aspirin, beta-blockers, nitrates, morphine, BUDDY inhibitors and statin Cardiology evaluation recommendation noted and appreciated --Non-ST elevation (NSTEMI) myocardial infarction Elevated troponins, Trending down patient has multiple risk factors, history of coronary artery disease status post CABG Cardiology evaluated the patient, possible stress test on 06/13/2022[Monday] --CAD (coronary artery disease) S/p CABG 1 year ago[patient does not know the details] Continue his home cardiac medications Cardiology evaluation noted and appreciated Possible stress test on Monday --HTN (hypertension) Moderate control, low-sodium diet -- Dyslipidemia Low-cholesterol diet, statin --History of seizure disorder/off seizure medications Seizure precautions supportive care --Type 2 diabetes mellitus Accu-Chek, sliding scale coverage, ADA diet, insulin as needed Patient takes Novolin 70/30, will resume and follow blood sugars --Noncompliance with medication regimen Counseling done strongly advised to comply with medications, diet, follow-up visits Patient verbalized understanding --DVT prophylaxis Subcu Lovenox --Full code status We will closely monitor the patient and adjust management as needed Plan of care reviewed with the patient and his nurse Discharge planning per case management when patient is stable 06/11/2022; cardiology evaluated the patient, started cardiac diet Possible Lexiscan stress test on 06/13/2022 History Interval history: I have seen and examined the patient at the bedside this morning Patient's chart and medications reviewed No new events reported by the nursing staff patient denies any chest pain or shortness of breath Working on his computer not in acute distress Hospitalist Physical - Constitutional Vitals: Temp Pulse Resp BP Pulse Ox 98.2 F 89 16 153/85 97 06/11/22 04:26 06/11/22 04:26 06/11/22 04:26 06/11/22 04:26 06/11/22 04:26 General appearance: Present: no acute distress, well-nourished - EENT Eyes: Present: PERRL, EOM intact - Neck Neck: Present: supple, normal ROM - Respiratory Respiratory effort: normal Respiratory: bilateral: diminished, negative: rales, rhonchi, wheezing - Cardiovascular Rhythm: regular Heart Sounds: Present: S1 & S2 - Extremities Extremities: no ischemia, No edema - Abdominal General gastrointestinal: soft, non-tender, non-distended, normal bowel sounds - Integumentary Integumentary: Present: clear, warm - Psychiatric Psychiatric: appropriate mood/affect, cooperative - Neurologic Neurologic: CNII-XII intact, moves all extremities HEART Score - HEART Score EKG: Non-specific Age: 45-65 Risk factors: > 3 risk factors or hx of atherosclerotic disease Troponin: Troponin T 0.029 ng/mL (0.00-0.029) 06/11/22 07:30 Troponin: < normal limit Results - Labs CBC & Chem 7: 06/09/22 11:31 06/09/22 11:31 Labs: Laboratory Last Values WBC 11.5 K/mm3 (4.5-11.0) H 06/09/22 11:31 RBC 4.48 M/mm3 (3.65-5.03) 06/09/22 11:31 Hgb 12.5 gm/dl (11.8-15.2) 06/09/22 11:31 Hct 38.5 % (35.5-45.6) 06/09/22 11:31 MCV 86 fl (84-94) 06/09/22 11:31 MCH 28 pg (28-32) 06/09/22 11:31 MCHC 33 % (32-34) 06/09/22 11:31 RDW 15.8 % (13.2-15.2) H 06/09/22 11:31 Plt Count 354 K/mm3 (140-440) 06/09/22 11:31 Lymph % (Auto) 19.4 % (13.4-35.0) 06/09/22 11:31 [place] % (Auto) 6.5 % (0.0-7.3) 06/09/22 11:31 Eos % (Auto) 3.0 % (0.0-4.3) 06/09/22 11:31 Baso % (Auto) 0.9 % (0.0-1.8) 06/09/22 11:31 Lymph # (Auto) 2.2 K/mm3 (1.2-5.4) 06/09/22 11:31 [place] # (Auto) 0.7 K/mm3 (0.0-0.8) 06/09/22 11:31 Eos # (Auto) 0.3 K/mm3 (0.0-0.4) 06/09/22 11:31 Baso # (Auto) 0.1 K/mm3 (0.0-0.1) 06/09/22 11:31 Seg Neutrophils % 70.2 % (40.0-70.0) H 06/09/22 11:31 Seg Neutrophils # 8.1 K/mm3 (1.8-7.7) H 06/09/22 11:31 Sodium 141 mmol/L (137-145) 06/09/22 11:31 Potassium 4.6 mmol/L (3.6-5.0) 06/09/22 11:31 Chloride 105.3 mmol/L (98-107) 06/09/22 11:31 Carbon Dioxide 27 mmol/L (22-30) 06/09/22 11:31 Anion Gap 13 mmol/L 06/09/22 11:31 BUN 14 mg/dL (9-20) 06/09/22 11:31 Creatinine 0.9 mg/dL (0.8-1.3) 06/09/22 11:31 Estimated GFR > 60 ml/min 06/09/22 11:31 BUN/Creatinine Ratio 16 % 06/09/22 11:31 Glucose 174 mg/dL (75-100) H 06/09/22 11:31 Calcium 10.4 mg/dL (8.4-10.2) H 06/09/22 11:31 Total Bilirubin 0.50 mg/dL (0.1-1.2) 06/09/22 11:31 AST 16 units/L (5-40) 06/09/22 11:31 ALT 11 units/L (7-56) 06/09/22 11:31 Alkaline Phosphatase 83 units/L (35-129) 06/09/22 11:31 Total Creatine Kinase 53 units/L (55-170) L 06/11/22 07:30 CK-MB (CK-2) 5.8 ng/mL (0.0-4.0) H 06/11/22 07:30 CK-MB (CK-2) Rel Index 10.9 (0-4) H 06/11/22 07:30 Troponin T 0.029 ng/mL (0.00-0.029) 06/11/22 07:30 Total Protein 7.4 g/dL (6.3-8.2) 06/09/22 11:31 Albumin 4.3 g/dL (3.9-5) 06/09/22 11:31 Albumin/Globulin Ratio 1.4 % 06/09/22 11:31 Triglycerides 122 mg/dL (2-149) 06/10/22 09:20 Cholesterol 199 mg/dL (50-199) 06/10/22 09:20 LDL Cholesterol Direct 142 mg/dL (50-130) H 06/10/22 09:20 HDL Cholesterol 42 mg/dL (40-59) 06/10/22 09:20 Cholesterol/HDL Ratio 4.73 % 06/10/22 09:20 [place]/IV: Voiding Method Urinal Active Medications - Current Medications Current Medications: Generic Name Dose Route Start Last Admin Trade Name Freq PRN Reason Stop Dose Admin Acetaminophen 650 mg 06/10/22 10:43 Acetaminophen 325 Mg Tab PO Q4H PRN Pain MILD(1-3)/Fever >100.5/GIRALDO Amlodipine Besylate 5 mg 06/11/22 10:00 Amlodipine 5 Mg Tab PO DAILY [facility] Aspirin 325 mg 06/11/22 10:00 Aspirin Ec 325 Mg Tab PO QDAY [facility] Atorvastatin Calcium 40 mg 06/10/22 22:00 06/11/22 00:50 Atorvastatin 40 Mg Tab PO 40 mg QHS OSCAR Administration Carvedilol 6.25 mg 06/10/22 22:00 06/11/22 00:50 Carvedilol 6.25 Mg Tab PO 6.25 mg BID OSCAR Administration Docusate Sodium 100 mg 06/10/22 20:42 06/11/22 00:50 Docusate Sodium 100 Mg Cap PO 100 mg BID PRN Administration Constipation Enoxaparin Sodium 70 mg 06/10/22 22:00 06/11/22 00:50 Enoxaparin 80 Mg/0.8 Ml Inj SUB-Q 70 mg Q12HR OSCAR Administration Protocol Famotidine 10 mg 06/10/22 22:00 06/11/22 00:57 Famotidine 20 Mg/2 Ml Inj IV 10 mg BID OSCAR Administration Lisinopril 10 mg 06/11/22 10:00 Lisinopril 10 Mg Tab PO QDAY [facility] Morphine Sulfate 2 mg 06/10/22 10:44 Morphine 2 Mg/1 Ml Inj IV Q4H PRN Pain, Moderate (4-6) Nitroglycerin 0.4 mg 06/10/22 20:42 Nitroglycerin 0.4 Mg Tab Subl SL .Q5MIN PRN Chest Pain Ondansetron HCl 4 mg 06/10/22 10:43 Ondansetron 4 Mg/2 Ml Inj IV Q8H PRN Nausea And Vomiting Oxcarbazepine 300 mg 06/10/22 22:00 06/11/22 00:51 Oxcarbazepine 300 Mg Tab PO 300 mg BID OSCAR Administration Sodium Chloride 10 ml 06/10/22 22:00 06/11/22 00:50 Sodium Chloride 0.9% 10 Ml Flush Syringe IV 10 ml BID OSCAR Administration Sodium Chloride 10 ml 06/10/22 10:43 Sodium Chloride 0.9% 10 Ml Flush Syringe IV PRN PRN LINE FLUSH
--- NOTE | 2022-06-11 09:18 | Consultation ---
History of Present Illness Consult date: 06/11/22 Consult reason: chest pain History of present illness: 62-year-old gentleman presenting with a 5 to 7-day history of chest tightness and pressure. Pressure and tightness are nonexertional. They last about 40 to 45 minutes in duration. Patient is status post coronary artery bypass grafting at [facility] 1 year ago. Unfortunately he has not been taking his medications because currently he is in the [facility] clinic. He is currently asymptomatic. No arrhythmias recorded on telemetry. EKG on admission showing nonspecific ST-T wave changes. Troponin trend is nonspecific for acute coronary syndrome. Past History Past Medical History: CAD, diabetes, hypertension, seizures Past Surgical History: CABG Social history: alcohol abuse. denies: smoking, prescription drug abuse, IV drug use Family history: no significant family history Medications and Allergies Allergies Allergy/AdvReac Type Severity Reaction Status Date / Time codeine Allergy Unknown Verified 06/11/18 20:05 Home Medications Medication Instructions Recorded Confirmed Last Taken Type OXcarbazepine [Trileptal] 300 mg PO BID 06/12/18 06/12/18 06/11/18 16:00 History Metformin HCl 500 mg PO BID #60 tablet 06/17/18 Unknown Rx Pot Phosphate/Na Phosphate 1 each PO Q12HR 7 Days powd.pack 06/17/18 Unknown Rx [Phos-Nak] Promethazine [Phenergan] 25 mg PO Q6HR PRN #20 tab 06/17/18 Unknown Rx amLODIPine 5 mg PO DAILY #30 tablet 06/17/18 Unknown Rx oxyCODONE /ACETAMINOPHEN [Percocet 1 tab PO Q6H PRN #10 tablet 06/17/18 Unknown Rx 5/325 mg] HYDROcodone/APAP 7.5-325 [[place] 1 each PO Q8HR PRN #15 tablet 07/16/18 Unknown Rx 7.5-325 mg TAB] Ondansetron [Zofran TAB] 4 mg PO Q8HR PRN #15 tablet 07/16/18 Unknown Rx Active Meds: Active Medications Acetaminophen (Acetaminophen 325 Mg Tab) 650 mg PO Q4H PRN PRN Reason: Pain MILD(1-3)/Fever >100.5/GIRALDO Amlodipine Besylate (Amlodipine 5 Mg Tab) 5 mg PO DAILY OSCAR Aspirin (Aspirin Ec 325 Mg Tab) 325 mg PO QDAY OSCAR Atorvastatin Calcium (Atorvastatin 40 Mg Tab) 40 mg PO QHS [facility] Last Admin: 06/11/22 00:50 Dose: 40 mg Carvedilol (Carvedilol 6.25 Mg Tab) 6.25 mg PO BID [facility] Last Admin: 06/11/22 00:50 Dose: 6.25 mg Docusate Sodium (Docusate Sodium 100 Mg Cap) 100 mg PO BID PRN PRN Reason: Constipation Last Admin: 06/11/22 00:50 Dose: 100 mg Enoxaparin Sodium (Enoxaparin 80 Mg/0.8 Ml Inj) 70 mg SUB-Q Q12HR [facility]; Protocol Last Admin: 06/11/22 00:50 Dose: 70 mg Famotidine (Famotidine 20 Mg/2 Ml Inj) 10 mg IV BID [facility] Last Admin: 06/11/22 00:57 Dose: 10 mg Lisinopril (Lisinopril 10 Mg Tab) 10 mg PO QDAY [facility] Morphine Sulfate (Morphine 2 Mg/1 Ml Inj) 2 mg IV Q4H PRN PRN Reason: Pain, Moderate (4-6) Nitroglycerin (Nitroglycerin 0.4 Mg Tab Subl) 0.4 mg SL .Q5MIN PRN PRN Reason: Chest Pain Ondansetron HCl (Ondansetron 4 Mg/2 Ml Inj) 4 mg IV Q8H PRN PRN Reason: Nausea And Vomiting Oxcarbazepine (Oxcarbazepine 300 Mg Tab) 300 mg PO BID [facility] Last Admin: 06/11/22 00:51 Dose: 300 mg Sodium Chloride (Sodium Chloride 0.9% 10 Ml Flush Syringe) 10 ml IV BID [facility] Last Admin: 06/11/22 00:50 Dose: 10 ml Sodium Chloride (Sodium Chloride 0.9% 10 Ml Flush Syringe) 10 ml IV PRN PRN PRN Reason: LINE FLUSH Review of Systems All systems: negative Physical Examination Vital Signs Temp Pulse Resp BP Pulse Ox 98.2 F 83 16 164/87 100 06/09/22 02:25 06/09/22 02:25 06/09/22 02:25 06/09/22 02:25 06/09/22 02:25 General appearance: no acute distress HEENT: Positive: PERRL Neck: Positive: neck supple Cardiac: Positive: Reg Rate and Rhythm Lungs: Positive: Normal Exam Abdomen: Positive: Soft Extremities: Absent: edema Results 06/09/22 11:31 06/09/22 11:31 Cardiac Enzymes 06/10/22 06/11/22 Range/Units 16:05 07:30 CK-MB (CK-2) 6.4 H 5.8 H (0.0-4.0) ng/mL Lipids 06/10/22 Range/Units 09:20 Triglycerides 122 (2-149) mg/dL Cholesterol 199 (50-199) mg/dL HDL Cholesterol 42 (40-59) mg/dL Cholesterol/HDL Ratio 4.73 % - EKG Interpretation EKG: sinus rhythm EKG shows: sinus rhythm EKG interpretations - Telemetry EKG Rhythm: Sinus Rhythm Assessment and Plan Chest pain, reason for admission Nonspecific troponin abnormality Coronary artery disease status post CABG 1 year ago at [facility] Type 2 diabetes mellitus Noncompliance Homelessness Recommendation Continue current management. Add Nitropaste to the chest wall. Proceed with echo cardiogram and pharmacological nuclear stress test on Monday for further risk stratification.
[2022-06-11] MEDS ORDERED: LISINOPRIL 10 MG TAB PO SCH (10:00)
[2022-06-11] MEDS ORDERED: ASPIRIN EC 325 MG TAB PO SCH (10:00)
[2022-06-11] MEDS: amLODIPine 5 MG TAB PO SCH (10:11)
[2022-06-11] MEDS ORDERED: DIPHENOXYLATE/ATROPINE TAB PO ONE (11:00)
[2022-06-11] MEDS: NITROGLYCERIN 2% OINT 1 GM TP SCH ×3 (11:17→17:18)
[2022-06-11] MEDS: MORPHINE 2 MG/1 ML INJ IV PRN ×2 (14:24→19:49)
[2022-06-11 14:42] LABS: Bilirubin,Urine NEG (Negative); Blood,Urine SM (Negative); Color,Urine Yellow (Yellow); Urobilinogen,Urine < 2.0 mg/dL (<2.0)
[2022-06-11 14:49] LABS: Bacteria,Urine 1+ /HPF (Negative); Mucus,Urine FEW /HPF
[2022-06-11 14:51] LABS: Amphetamine Screen,Urine Negative; Benzodiazepines Screen,Urine Negative; Cannabinoid Screen,Urine Negative; Cocaine Screen,Urine Negative; Methadone Screen,Urine Negative; Opiate Screen,Urine Negative
[2022-06-11 14:56] LABS: WBC,Urine > 182.0 /HPF (0.0-6.0)
[2022-06-11] MEDS: METOPROLOL TARTRATE 50 MG TAB PO SCH (21:43)
[2022-06-12] MEDS: MORPHINE 2 MG/1 ML INJ IV PRN ×4 (04:44→21:41)
[2022-06-12] MEDS: NITROGLYCERIN 2% OINT 1 GM TP SCH ×5 (07:44→18:57)
--- NOTE | 2022-06-12 09:37 | Progress Note ---
Assessment and Plan Chest pain, reason for admission Nonspecific troponin abnormality Coronary artery disease status post CABG 1 year ago at [facility] Echocardiogram this admission revealing preserved left ventricular ejection fraction with normal wall motion, asymmetric septal wall hypertrophy. Type 2 diabetes mellitus Noncompliance Homelessness Recommendation: Continue current management. Proceed with pharmacological nuclear stress test on Monday for further risk stratification. Subjective Date of service: 06/12/22 Principal diagnosis: Chest pain Interval history: No cardiac events recorded overnight. Telemetry showing normal sinus rhythm. Patient describes nausea and vomiting x1 this morning. Objective Vital Signs Temp Pulse Resp BP BP Pulse Ox 06/12/22 07:39 100 06/12/22 04:00 98.3 F 77 16 151/82 97 06/11/22 23:03 98.4 F 60 16 130/63 99 06/11/22 23:00 62 06/11/22 21:56 100 06/11/22 21:40 59 L 117/53 98 06/11/22 19:30 98.4 F 73 16 87/57 100 - Physical Examination HEENT: Positive: PERRL Neck: Positive: neck supple Cardiac: Positive: Reg Rate and Rhythm Lungs: Positive: Normal Exam Abdomen: Positive: Soft Extremities: Absent: edema
[2022-06-12] MEDS: ONDANSETRON 4 MG/2 ML INJ IV PRN (10:20)
[2022-06-12] MEDS: METOPROLOL TARTRATE 50 MG TAB PO SCH ×2 (10:20→21:36)
[2022-06-12] MEDS: LISINOPRIL 20 MG TAB PO SCH (10:20)
[2022-06-12] MEDS: amLODIPine 5 MG TAB PO SCH (10:20)
[2022-06-12] MEDS: ASPIRIN 81 MG TAB CHEW PO SCH (10:20)
[2022-06-12] MEDS: CLOPIDOGREL 75 MG TAB PO SCH (10:20)
[2022-06-12] MEDS: ENOXAPARIN 80 MG/0.8 ML INJ SUB-Q SCH ×2 (10:21→21:35)
[2022-06-12] MEDS: FAMOTIDINE 20 MG/2 ML INJ IV SCH ×2 (10:21→21:35)
--- NOTE | 2022-06-12 11:02 | Progress Note ---
Assessment and Plan Assessment and plan: Cardiology scheduled for stress test tomorrow Patient is n.p.o. from midnight -- Chest pain/angina at rest Serial cardiac enzymes, serial EKGs Follow echocardiogram and ejection fraction, continue Aspirin, beta-blockers, nitrates, morphine, BUDDY inhibitors and statin Cardiology evaluation recommendation noted and appreciated --Non-ST elevation (NSTEMI) myocardial infarction Elevated troponins, Trending down patient has multiple risk factors, history of coronary artery disease status post CABG Cardiology evaluated the patient, possible stress test on 06/13/2022[Monday] --CAD (coronary artery disease) S/p CABG 1 year ago[patient does not know the details] Continue his home cardiac medications Cardiology evaluation noted and appreciated Possible stress test on Monday --HTN (hypertension) Moderate control, low-sodium diet -- Dyslipidemia Low-cholesterol diet, statin --History of seizure disorder/off seizure medications Seizure precautions supportive care --Type 2 diabetes mellitus Accu-Chek, sliding scale coverage, ADA diet, insulin as needed Patient takes Novolin 70/30, will resume and follow blood sugars --Noncompliance with medication regimen Counseling done strongly advised to comply with medications, diet, follow-up visits Patient verbalized understanding --DVT prophylaxis Subcu Lovenox --Full code status We will closely monitor the patient and adjust management as needed Plan of care reviewed with the patient and his nurse Discharge planning per case management when patient is stable 06/11; cardiology evaluated the patient, started cardiac diet Possible Lexiscan stress test on 06/13/202206/12; stress test tomorrow, n.p.o. from midnight If stress test is negative and patient is stable may discharge home tomorrow History Interval history: I have seen and examined the patient at the bedside Chart and medications reviewed She complains of some nausea Denies chest pain or shortness of breath Cardiology scheduled for stress test tomorrow Patient will be n.p.o. from midnight Vital signs reviewed Hospitalist Physical - Constitutional Vitals: Temp Pulse Resp BP Pulse Ox 98.1 F 67 22 139/69 100 06/12/22 07:15 06/12/22 07:15 06/12/22 07:15 06/12/22 07:15 06/12/22 07:39 General appearance: Present: no acute distress, well-nourished - EENT Eyes: Present: PERRL, EOM intact - Neck Neck: Present: supple, normal ROM - Respiratory Respiratory effort: normal Respiratory: bilateral: diminished, negative: rales, rhonchi, wheezing - Cardiovascular Rhythm: regular Heart Sounds: Present: S1 & S2 - Extremities Extremities: no ischemia, No edema - Abdominal General gastrointestinal: soft, non-tender, non-distended, normal bowel sounds - Integumentary Integumentary: Present: clear, warm - Psychiatric Psychiatric: appropriate mood/affect, cooperative - Neurologic Neurologic: moves all extremities HEART Score - HEART Score EKG: Non-specific Age: 45-65 Risk factors: > 3 risk factors or hx of atherosclerotic disease Troponin: Troponin T 0.029 ng/mL (0.00-0.029) 06/11/22 07:30 Troponin: < normal limit Results - Labs CBC & Chem 7: 06/09/22 11:31 06/09/22 11:31 Labs: Laboratory Last Values WBC 11.5 K/mm3 (4.5-11.0) H 06/09/22 11:31 RBC 4.48 M/mm3 (3.65-5.03) 06/09/22 11:31 Hgb 12.5 gm/dl (11.8-15.2) 06/09/22 11:31 Hct 38.5 % (35.5-45.6) 06/09/22 11:31 MCV 86 fl (84-94) 06/09/22 11:31 MCH 28 pg (28-32) 06/09/22 11:31 MCHC 33 % (32-34) 06/09/22 11:31 RDW 15.8 % (13.2-15.2) H 06/09/22 11:31 Plt Count 354 K/mm3 (140-440) 06/09/22 11:31 Lymph % (Auto) 19.4 % (13.4-35.0) 06/09/22 11:31 [place] % (Auto) 6.5 % (0.0-7.3) 06/09/22 11:31 Eos % (Auto) 3.0 % (0.0-4.3) 06/09/22 11:31 Baso % (Auto) 0.9 % (0.0-1.8) 06/09/22 11:31 Lymph # (Auto) 2.2 K/mm3 (1.2-5.4) 06/09/22 11:31 [place] # (Auto) 0.7 K/mm3 (0.0-0.8) 06/09/22 11:31 Eos # (Auto) 0.3 K/mm3 (0.0-0.4) 06/09/22 11:31 Baso # (Auto) 0.1 K/mm3 (0.0-0.1) 06/09/22 11:31 Seg Neutrophils % 70.2 % (40.0-70.0) H 06/09/22 11:31 Seg Neutrophils # 8.1 K/mm3 (1.8-7.7) H 06/09/22 11:31 Sodium 141 mmol/L (137-145) 06/09/22 11:31 Potassium 4.6 mmol/L (3.6-5.0) 06/09/22 11:31 Chloride 105.3 mmol/L (98-107) 06/09/22 11:31 Carbon Dioxide 27 mmol/L (22-30) 06/09/22 11:31 Anion Gap 13 mmol/L 06/09/22 11:31 BUN 14 mg/dL (9-20) 06/09/22 11:31 Creatinine 0.9 mg/dL (0.8-1.3) 06/09/22 11:31 Estimated GFR > 60 ml/min 06/09/22 11:31 BUN/Creatinine Ratio 16 % 06/09/22 11:31 Glucose 174 mg/dL (75-100) H 06/09/22 11:31 Calcium 10.4 mg/dL (8.4-10.2) H 06/09/22 11:31 Total Bilirubin 0.50 mg/dL (0.1-1.2) 06/09/22 11:31 AST 16 units/L (5-40) 06/09/22 11:31 ALT 11 units/L (7-56) 06/09/22 11:31 Alkaline Phosphatase 83 units/L (35-129) 06/09/22 11:31 Total Creatine Kinase 53 units/L (55-170) L 06/11/22 07:30 CK-MB (CK-2) 5.8 ng/mL (0.0-4.0) H 06/11/22 07:30 CK-MB (CK-2) Rel Index 10.9 (0-4) H 06/11/22 07:30 Troponin T 0.029 ng/mL (0.00-0.029) 06/11/22 07:30 Total Protein 7.4 g/dL (6.3-8.2) 06/09/22 11:31 Albumin 4.3 g/dL (3.9-5) 06/09/22 11:31 Albumin/Globulin Ratio 1.4 % 06/09/22 11:31 Triglycerides 122 mg/dL (2-149) 06/10/22 09:20 Cholesterol 199 mg/dL (50-199) 06/10/22 09:20 LDL Cholesterol Direct 142 mg/dL (50-130) H 06/10/22 09:20 HDL Cholesterol 42 mg/dL (40-59) 06/10/22 09:20 Cholesterol/HDL Ratio 4.73 % 06/10/22 09:20 Urine Color Yellow (Yellow) 06/11/22 Unknown Urine Turbidity Cloudy (Clear) 06/11/22 Unknown Urine pH 6.0 (5.0-7.0) 06/11/22 Unknown Ur Specific [place] 1.018 (1.003-1.030) 06/11/22 Unknown Urine Protein 100 mg/dl mg/dL (Negative) 06/11/22 Unknown Urine Glucose (UA) 50 mg/dL (Negative) 06/11/22 Unknown Urine Ketones Neg mg/dL (Negative) 06/11/22 Unknown Urine Blood Sm (Negative) 06/11/22 Unknown Urine Nitrite Neg (Negative) 06/11/22 Unknown Urine Bilirubin Neg (Negative) 06/11/22 Unknown Urine Urobilinogen < 2.0 mg/dL (<2.0) 06/11/22 Unknown Ur Leukocyte Esterase Lg (Negative) 06/11/22 Unknown Urine WBC (Auto) > 182.0 /HPF (0.0-6.0) H 06/11/22 Unknown Urine RBC (Auto) 3.0 /HPF (0.0-6.0) 06/11/22 Unknown Urine Bacteria (Auto) 1+ /HPF (Negative) 06/11/22 Unknown Urine Mucus Few /HPF 06/11/22 Unknown Urine Opiates Screen Negative 06/11/22 Unknown Urine Methadone Screen Negative 06/11/22 Unknown Ur Barbiturates Screen Negative 06/11/22 Unknown Ur Phencyclidine Scrn Negative 06/11/22 Unknown Ur Amphetamines Screen Negative 06/11/22 Unknown U Benzodiazepines Scrn Negative 06/11/22 Unknown Urine Cocaine Screen Negative 06/11/22 Unknown U Marijuana (THC) Screen Negative 06/11/22 Unknown Drugs of Abuse Note Disclamer 06/11/22 Unknown Thacker/IV: Voiding Method Urinal Active Medications - Current Medications Current Medications: Generic Name Dose Route Start Last Admin Trade Name Freq PRN Reason Stop Dose Admin Acetaminophen 650 mg 06/10/22 10:43 Acetaminophen 325 Mg Tab PO Q4H PRN Pain MILD(1-3)/Fever >100.5/GIRALDO Amlodipine Besylate 5 mg 06/11/22 10:00 06/12/22 10:20 Amlodipine 5 Mg Tab PO 5 mg DAILY OSCAR Administration Aspirin 81 mg 06/12/22 10:00 06/12/22 10:20 Aspirin 81 Mg Tab Chew PO 81 mg QDAY OSCAR Administration Atorvastatin Calcium 40 mg 06/10/22 22:00 06/11/22 21:43 Atorvastatin 40 Mg Tab PO 40 mg QHS OSCAR Administration Clopidogrel Bisulfate 75 mg 06/12/22 10:00 06/12/22 10:20 Clopidogrel 75 Mg Tab PO 75 mg QDAY OSCAR Administration Enoxaparin Sodium 70 mg 06/10/22 22:00 06/12/22 10:21 Enoxaparin 80 Mg/0.8 Ml Inj SUB-Q 70 mg Q12HR OSCAR Administration Protocol Famotidine 10 mg 06/10/22 22:00 06/12/22 10:21 Famotidine 20 Mg/2 Ml Inj IV 10 mg BID OSCAR Administration Lisinopril 20 mg 06/12/22 10:00 06/12/22 10:20 Lisinopril 20 Mg Tab PO 20 mg DAILY OSCAR Administration Metoprolol Tartrate 50 mg 06/11/22 22:00 06/12/22 10:20 Metoprolol Tartrate 50 Mg Tab PO 50 mg BID OSCAR Administration Morphine Sulfate 2 mg 06/10/22 10:44 06/12/22 10:21 Morphine 2 Mg/1 Ml Inj IV 2 mg Q4H PRN Administration Pain, Moderate (4-6) Nitroglycerin 0.4 mg 06/10/22 20:42 Nitroglycerin 0.4 Mg Tab Subl SL .Q5MIN PRN Chest Pain Nitroglycerin 1 inch 06/11/22 10:00 06/12/22 10:21 Nitroglycerin 2% Oint 1 Gm TP 1 inch QIDNTG OSCAR Administration Protocol Ondansetron HCl 4 mg 06/10/22 10:43 06/12/22 10:20 Ondansetron 4 Mg/2 Ml Inj IV 4 mg Q8H PRN Administration Nausea And Vomiting Sodium Chloride 10 ml 06/10/22 22:00 06/12/22 10:22 Sodium Chloride 0.9% 10 Ml Flush Syringe IV 10 ml BID OSCAR Administration Sodium Chloride 10 ml 06/10/22 10:43 Sodium Chloride 0.9% 10 Ml Flush Syringe IV PRN PRN LINE FLUSH
--- NOTE | 2022-06-12 15:12 | Electrocardiograph Report ---
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 : [id number] Requested By: BENNIE BAGLEY Order Number: [id number] Reading MD: Candie Mosquera Measurements Intervals [place] Rate: 59 P: 66 ND: 204 QRS: 25 QRSD: 86 T: 72 QT: 441 QTc: 439 Interpretive Statements Sinus bradycardia Multiform ventricular premature complexes Borderline prolonged ND interval Low voltage, precordial leads Compared to ECG 06/09/2022 11:03:18 Ventricular premature complex(es) now present Low QRS voltage now present Sinus rhythm no longer present Left ventricular hypertrophy no longer present Early repolarization no longer present Electronically Signed On 06-12-2022 15:11:42 EDT by Candie Mosquera
--- NOTE | 2022-06-12 15:16 | Electrocardiograph Report ---
[facility] Test Date: 2022-06-11 Test Time: 07:06:44 Pat Name: SARAH CARRIZALES Department: Room: A485 1 Gender: M Customer Service Agent: JORY : 1960 Requested By: BENNIE BAGLEY Order Number: [id number] Reading MD: Candie Mosquera Measurements Intervals [place] Rate: 82 P: 58 [place]: 139 QRS: -48 QRSD: 117 T: 129 QT: 409 QTc: 479 Interpretive Statements Sinus rhythm LVH with secondary repolarization abnormality Anterior Q waves, possibly due to LVH Compared to ECG 06/10/2022 13:39:32 Left ventricular hypertrophy now present Early repolarization now present Q waves now present Sinus bradycardia no longer present Ventricular premature complex(es) no longer present Electronically Signed On 06-12-2022 15:15:31 EDT by Candie Mosquera
[2022-06-13] MEDS: NITROGLYCERIN 2% OINT 1 GM TP SCH ×3 (05:53→13:07)
[2022-06-13] MEDS ORDERED: REGADENOSON 0.4 MG/5 ML INJ IV ONE ×2 (06:55→07:00)
[2022-06-13] MEDS: ONDANSETRON 4 MG/2 ML INJ IV PRN (10:48)
--- NOTE | 2022-06-13 12:05 | Progress Note ---
Assessment and Plan - Patient Problems (1) Chest pain Current Visit: Yes Status: Acute Plan to address problem: 62-year-old man who presented with atypical chest pain. He has a history of coronary artery disease and is status post 5 vessel coronary artery bypass done at [facility] less than a year ago. Echocardiogram has reported normal left ventricular systolic function with ejection fraction 55 to 60%. He was ordered for a Lexiscan thallium stress test today which was completed, results are pending. Subjective Date of service: 06/13/22 Principal diagnosis: Chest pain Interval history: 62-year-old man who presented with atypical chest pain. He has a history of coronary artery disease and is status post 5 vessel coronary artery bypass done at [facility] less than a year ago. He was ordered for a Lexiscan thallium stress test today which was completed, results are pending. Objective Vital Signs Temp Pulse Resp BP BP Pulse Ox 06/13/22 11:00 100 06/13/22 10:45 124/67 06/13/22 10:43 121/58 06/13/22 10:42 113/55 06/13/22 10:41 114/52 06/13/22 10:39 157/71 06/13/22 10:07 160/72 06/13/22 10:04 163/65 06/13/22 08:49 58 L 06/13/22 08:28 98.6 F 16 163/74 06/13/22 03:12 58 L 152/75 99 06/13/22 00:00 58 L 06/12/22 21:27 98.3 F 63 18 138/58 99 06/12/22 20:16 98.3 F 06/12/22 20:15 63 18 138/58 99 06/12/22 19:51 100 - Physical Examination General: No Apparent Distress HEENT: Positive: PERRL Neck: Positive: neck supple Cardiac: Positive: Reg Rate and Rhythm Lungs: Positive: Decreased Breath Sounds Neuro: Positive: Grossly Intact Abdomen: Positive: Soft Skin: Positive: Clear Extremities: Absent: edema
--- NOTE | 2022-06-13 12:41 | Nuclear Medicine Report ---
APPROVED REPORT Exam: Nuclear Stress Test Indication: [facility] Ht: 5 ft 10 in Wt: 150 lbs BSA: 1.85 m2 HR: 58 bpmBP: 163/65 mmHgBMI: 21.52 Rhythm: Sinus Bradycardia Stress Test Details Stress Test: Pharmacologic stress testing performed using 0.4 mg of regadenoson per 5 mL given IV over 10 seconds. Reason for pharmacologic stress test: physical limitation. HR Resting HR: 59 bpm Max HR Achieved: 80 bpm Max Heart Rate (APMHR): 158 bpm Target HR (85% APMHR): 134 bpm % of APMHR: 50 Recovery HR: 67 bpm HR response to stress: Normal HR response to stress BP Resting BP: 113/52 mmHg Max BP: 163/71 mmHg Recovery BP: 114/55 mmHg BP response to stress: Normal blood pressure response to stress. ECG Resting ECG: Sinus Bradycardia Stress ECG: Sinus Rhythm ST Change: None Arrhythmia: None Recovery ECG: Sinus Rhythm Recovery ST Change: None Recovery Arrhythmia: None Clinical Reason for Termination: Completed protocol Stress Symptoms: Nausea Stress ECG Conclusion No chest pain, no ST changes of ischemia with pharmacologic stress. Myocardial perfusion images are pending. NM EXAM: Myocardial Perfusion REST/STRESS Imaging Protocol: Rest Tc-99m/Stress Tc-99m 1 day Resting Data Rest SPECT myocardial perfusion imaging was performed in supine position 45 minutes following the intravenous injection of 10 mCi of Tc-99m Myoview. Time of rest injection: 0830 Pharmacologic Stress Pharmacologic stress test was performed by injecting Regadenoson 0.4 mg IV push followed by the intravenous injection of 28 mCi of Tc-99m Myoview. Time of stress injection: 1040 Gated Stress SPECT was performed 30 minutes after stress injection. The images were gated to evaluate regional wall motion and calculate left ventricular ejection fraction. Study Quality Study: excellent Lung Uptake: Normal Study Data TID = 1.09. Perfusion Wall Motion The gated study shows left ventricular systolic function at the lower limits of normal with calculated ejection fraction 48% Nuclear Conclusion ECG Findings: negative for ischemia Clinical Findings: negative for ischemia Nuclear Findings: equivocal Risk Study: low Myocardial perfusion study shows a small mostly fixed apical defect of low intensity, possible apical thinning versus small prior apical infarct. There is minimal to no significant reversibility, clinical correlation is recommended. Conclusion No chest pain, no ST changes of ischemia with pharmacologic stress. Myocardial perfusion images are pending.
[2022-06-13 12:58] VITALS: BP 150/66
[2022-06-13] MEDS: CLOPIDOGREL 75 MG TAB PO SCH (13:05)
[2022-06-13] MEDS: FAMOTIDINE 20 MG/2 ML INJ IV SCH (13:05)
[2022-06-13] MEDS: amLODIPine 5 MG TAB PO SCH (13:05)
[2022-06-13] MEDS: ASPIRIN 81 MG TAB CHEW PO SCH (13:05)
[2022-06-13] MEDS: METOPROLOL TARTRATE 50 MG TAB PO SCH (13:05)
[2022-06-13] MEDS: MORPHINE 2 MG/1 ML INJ IV PRN (13:06)
[2022-06-13] MEDS: LISINOPRIL 20 MG TAB PO SCH (13:06)
[2022-06-13] MEDS: ENOXAPARIN 80 MG/0.8 ML INJ SUB-Q SCH (13:07)
--- NOTE | 2022-06-13 15:02 | Discharge Summary ---
Providers - Providers Date of Admission: 06/10/22 10:43 Date of discharge: 06/13/22 Attending physician: DRE PINEDA 06/11/22 07:27 Consult to Physician [CONS] Routine Comment: Consulting Provider: KRISTIE FITZPATRICK Physician Instructions: Reason For Exam: Non-ST elevation TN/h/o CAD s/p CABG Primary care physician: [facility] [employer] Hospitalization Reason for admission: Chest pain Condition: Stable Pertinent studies: Echocardiogram LVEF 55 to 60% LV segmental wall motion Chest x-ray no acute abnormality noted Procedures: Stress test; no ischemia Hospital course: -- Chest pain/angina at rest Serial cardiac enzymes, serial EKGs Follow echocardiogram and ejection fraction, continue Aspirin, beta-blockers, nitrates, morphine, BUDDY inhibitors and statin Cardiology evaluation recommendation noted and appreciated --Noncardiac chest pain- --Gastroesophageal reflux disease --Non-ST elevation (NSTEMI) myocardial infarction Elevated troponins, Trending down patient has multiple risk factors, history of coronary artery disease status post CABG Cardiology evaluated the patient, possible stress test on 06/13/2022[Monday] --CAD (coronary artery disease) s/p CABG S/p CABG 1 year ago[patient does not know the details] Continue his home cardiac medications Cardiology evaluation noted and appreciated Possible stress test on Monday --HTN (hypertension) Moderate control, low-sodium diet -- Dyslipidemia Low-cholesterol diet, statin --History of seizure disorder/off seizure medications Seizure precautions supportive care --Type 2 diabetes mellitus Accu-Chek, sliding scale coverage, ADA diet, insulin as needed Patient takes Novolin 70/30, will resume and follow blood sugars --Noncompliance with medication regimen Counseling done strongly advised to comply with medications, diet, follow-up visits Patient verbalized understanding --DVT prophylaxis Subcu Lovenox Disposition: HOME / SELF CARE / HOMELESS Final Discharge Diagnosis (Prints w/discharge instructions): Chest pain/angina at rest, resolved. Noncardiac chest pain/probably due to GERD. GERD gastroesophageal reflux disease. Non-ST elevation TN[stress test negative]. Coronary artery disease status post CABG. Hypertension. Dyslipidemia. History of seizures now off seizure medications. Type 2 diabetes mellitus. Medical noncompliance Time spent for discharge: 45 min Core Measure Documentation - Palliative Care Palliative Care/ Comfort Measures: Not Applicable - Core Measures Any of the following diagnoses?: none Exam - Constitutional Vitals: Temp Pulse Resp BP Pulse Ox 98.2 F 64 15 150/66 100 06/13/22 12:57 06/13/22 12:57 06/13/22 12:57 06/13/22 12:57 06/13/22 12:57 General appearance: Present: no acute distress, well-nourished - EENT Eyes: Present: PERRL, EOM intact - Neck Neck: Present: supple, normal ROM - Respiratory Respiratory effort: normal Respiratory: bilateral: diminished, negative: rales, rhonchi, wheezing - Cardiovascular Rhythm: regular Heart Sounds: Present: S1 & S2 - Extremities Extremities: no ischemia, No edema - Abdominal General gastrointestinal: Present: soft, non-tender, non-distended, normal bowel sounds - Integumentary Integumentary: Present: clear, warm - Musculoskeletal Musculoskeletal: strength equal bilaterally - Psychiatric Psychiatric: appropriate mood/affect, cooperative - Neurologic Neurologic: moves all extremities Plan Activity: advance as tolerated Diet: diabetic, other (Cardiac diet) Additional Instructions: If you have worsening symptoms contact MD or go to the nearest emergency room as needed. Follow-up with primary care physician in 1 w lime. Follow saw edge fuser circular and 2 to 3 weeks or as needed. Stress test is normal, your echocardiogram has normal ejection fraction LVEF 55 to 60% Follow up with: PRIMARY CARE, [Primary Care Provider] - 3-5 Days KRISTIE FITZPATRICK MD [Staff Physician] - 14 Days Prescriptions: amLODIPine 5 mg PO DAILY #30 tablet Aspirin [Aspirin BABY CHEW TAB] 81 mg PO QDAY #30 AtorvaSTATin [Lipitor] 40 mg PO QHS #30 tab lisinopriL [Lisinopril] 20 mg PO DAILY #30 Metoprolol [Lopressor TAB] 50 mg PO BID #60 Famotidine [Pepcid] 20 mg PO BID #30 tablet oxyCODONE /ACETAMINOPHEN [Percocet 5/325] 1 tab PO Q6HR PRN #12 tablet PRN Reason: Pain Clopidogrel [Plavix] 75 mg PO QDAY #30 Ondansetron [Zofran Odt] 4 mg PO Q8HR #15 tab.justin
== END 2022-06-13 16:50 | disposition home or self-care (01) | DRG 282 ==
LOC: ED 01:46 → 4A 06-10 10:43
PROVIDERS: ADMIT Internal Medicine; ATTEND Internal Medicine
DX: I21.4 Non-ST elevation (NSTEMI) myocardial infarction (principal); I10 Essential (primary) hypertension; E11.9 Type 2 diabetes mellitus without complications; Z95.1 Presence of aortocoronary bypass graft; E78.5 Hyperlipidemia, unspecified; G40.909 Epilepsy, unspecified, not intractable, without status epilepticus; Z91.14 Patient's other noncompliance with medication regimen; Z88.5 Allergy status to narcotic agent; I25.119 Atherosclerotic heart disease of native coronary artery with unspecified angina pectoris; K21.9 Gastro-esophageal reflux disease without esophagitis
CPT/HCPCS: 36415; 71046; 78452; 80053; 80061; 80307; 81001; 82550; 82553; 84484; 85025; 87086; 93005; 93017; 93306; 96374; G0378; J3490; A9502; C8929; J1650; J2270; J2405; J2785

== ENCOUNTER 2022-07-20 00:05 | Emergency (ER) | payer SELFPAY | END 2022-07-20 16:08 | disposition left against medical advice (07) | LOC: ED 00:05 | DX: Z00.00 Encounter for general adult medical examination without abnormal findings (principal); Z53.21 Procedure and treatment not carried out due to patient leaving prior to being seen by health care provider ==

== ENCOUNTER 2022-07-21 01:19 | Emergency (ER) | payer SELFPAY ==
[2022-07-21 01:31] VITALS: BP 161/77
== END 2022-07-21 07:35 ==
LOC: ED 01:19
DX: R05.9 Cough, unspecified (principal); R50.9 Fever, unspecified; M54.2 Cervicalgia; Z53.21 Procedure and treatment not carried out due to patient leaving prior to being seen by health care provider

== ENCOUNTER 2022-07-21 17:10 | Emergency (ER) | payer SELFPAY ==
[2022-07-21] MEDS ORDERED: ACETAMINOPHEN 500 MG TAB PO ONE (20:22)
--- NOTE | 2022-07-21 20:27 | Emergency Department Report ---
ED General Adult HPI - General Chief complaint: Sore Throat Stated complaint: COVID Time Seen by Provider: 07/21/22 20:11 Source: patient Mode of arrival: Ambulatory Limitations: No Limitations - History of Present Illness Initial comments: Pleasant 62-year-old male who presents for sore throat and cough productive clear for 3 days. States 2 nights positive for COVID. There is no fevers no chills no nausea no vomiting. Patient arrived to ED via POV patient is ambulatory, alert ,patient appears nontoxic, there is no respiratory distress. no wheezing, no cp. Patient advised symptoms are exacerbated by activity. Symptoms are relieved by nothing tried. States Was evaluated COVID. Patient has not seen PCP. Severity scale (0 -10): 6 - Related Data Home Medications Medication Instructions Recorded Confirmed Last Taken Insulin NPH Hum/Reg Insulin Hm 40 unit SQ DAILY 06/11/22 06/11/22 Unknown [HumuLIN 70/30 Kwikpen] metFORMIN [Glucophage] 500 mg PO BID 06/11/22 06/11/22 Unknown Previous Rx's Medication Instructions Recorded Last Taken Type Aspirin [Aspirin BABY CHEW TAB] 81 mg PO QDAY #30 06/13/22 Unknown Rx AtorvaSTATin [Lipitor] 40 mg PO QHS #30 tab 06/13/22 Unknown Rx Clopidogrel [Plavix] 75 mg PO QDAY #30 06/13/22 Unknown Rx Famotidine [Pepcid] 20 mg PO BID #30 tablet 06/13/22 Unknown Rx Metoprolol [Lopressor TAB] 50 mg PO BID #60 06/13/22 Unknown Rx Ondansetron [Zofran Odt] 4 mg PO Q8HR #15 tab.rapdis 06/13/22 Unknown Rx amLODIPine 5 mg PO DAILY #30 tablet 06/13/22 Unknown Rx lisinopriL [Lisinopril] 20 mg PO DAILY #30 06/13/22 Unknown Rx oxyCODONE /ACETAMINOPHEN [Percocet 1 tab PO Q6HR PRN #12 tablet 06/13/22 Unknown Rx 5/325] Acetaminophen 650 mg PO Q6H PRN #30 cap 07/21/22 Unknown Rx Allergies Allergy/AdvReac Type Severity Reaction Status Date / Time codeine AdvReac Mild Unknown Verified 07/21/22 17:26 ED Review of Systems ROS: Stated complaint: COVID Other details as noted in HPI Constitutional: denies: chills, fever Eyes: denies: eye pain, eye discharge, vision change ENT: throat pain, congestion. denies: dental pain, hearing loss Respiratory: cough. denies: shortness of breath, stridor, wheezing Cardiovascular: denies: chest pain, palpitations Endocrine: no symptoms reported Gastrointestinal: denies: abdominal pain, nausea, diarrhea Genitourinary: denies: urgency, dysuria Musculoskeletal: denies: back pain, joint swelling, arthralgia Skin: rash (Dry flaky generalized). denies: lesions Neurological: denies: headache, weakness, paresthesias, vertigo Psychiatric: denies: anxiety, depression Hematological/Lymphatic: denies: easy bleeding, easy bruising ED Past Medical Hx - Past Medical History Hx Hypertension: Yes Hx Diabetes: Yes Hx Seizures: Yes Additional medical history: CAD, eczema - Social History Smoking Status: Never Smoker - Medications Home Medications: Home Medications Medication Instructions Recorded Confirmed Last Taken Type Insulin NPH Hum/Reg Insulin Hm 40 unit SQ DAILY 06/11/22 06/11/22 Unknown History [HumuLIN 70/30 Kwikpen] metFORMIN [Glucophage] 500 mg PO BID 06/11/22 06/11/22 Unknown History Aspirin [Aspirin BABY CHEW TAB] 81 mg PO QDAY #30 06/13/22 Unknown Rx AtorvaSTATin [Lipitor] 40 mg PO QHS #30 tab 06/13/22 Unknown Rx Clopidogrel [Plavix] 75 mg PO QDAY #30 06/13/22 Unknown Rx Famotidine [Pepcid] 20 mg PO BID #30 tablet 06/13/22 Unknown Rx Metoprolol [Lopressor TAB] 50 mg PO BID #60 06/13/22 Unknown Rx Ondansetron [Zofran Odt] 4 mg PO Q8HR #15 tab.rapdis 06/13/22 Unknown Rx amLODIPine 5 mg PO DAILY #30 tablet 06/13/22 Unknown Rx lisinopriL [Lisinopril] 20 mg PO DAILY #30 06/13/22 Unknown Rx oxyCODONE /ACETAMINOPHEN [Percocet 1 tab PO Q6HR PRN #12 tablet 06/13/22 Unknown Rx 5/325] Acetaminophen 650 mg PO Q6H PRN #30 cap 07/21/22 Unknown Rx ED Physical Exam - General Limitations: No Limitations General appearance: alert, in no apparent distress - Head Head exam: Present: normocephalic, normal inspection - Eye Eye exam: Present: PERRL, EOMI Pupils: Present: normal accommodation - ENT ENT exam: Present: normal orophraynx, mucous membranes moist, TM's normal bilaterally, normal external ear exam - Neck Neck exam: Present: normal inspection, full ROM. Absent: tenderness, lymphadenopathy - Respiratory Respiratory exam: Present: normal lung sounds bilaterally. Absent: respiratory distress, wheezes, stridor, chest wall tenderness - Cardiovascular Cardiovascular Exam: Present: regular rate, normal rhythm, normal heart sounds. Absent: systolic murmur, diastolic murmur, rubs, gallop - GI/Abdominal GI/Abdominal exam: Present: soft, normal bowel sounds. Absent: distended, tenderness - Rectal Rectal exam: Present: deferred - Extremities Exam Extremities exam: Present: normal inspection, full ROM, normal capillary refill - Back Exam Back exam: Present: normal inspection, full ROM. Absent: CVA tenderness (R), CVA tenderness (L) - Neurological Exam Neurological exam: Present: alert, oriented X3, CN II-XII intact, normal gait - Expanded Neurological Exam Expanded Patient oriented to: Present: person, place, time Speech: Present: fluid speech Motor strength exam: RUE: 5, LUE: 5, RLE: 5, LLE: 5 Best Eye Response ([place]): (4) open spontaneously Best Motor Response ([place]): (6) obeys commands Best Verbal Response ([place]): (5) oriented [place] Total: 15 - Psychiatric Psychiatric exam: Present: normal affect, normal mood - Skin Skin exam: Present: warm, dry, intact, normal color, rash (Generalized dry flaky rash to forehead bilateral arms nonraised no erythema no weeping no fever) ED Course Vital Signs 07/21/22 17:22 Temperature 98.5 F Pulse Rate 92 H Blood Pressure 183/92 [Right] O2 Sat by Pulse 99 Oximetry ED Medical Decision Making - Radiology Data Radiology results: report reviewed, image reviewed CHEST 2 VIEWS INDICATION / CLINICAL INFORMATION: cough covid exposure. FINDINGS: SUPPORT DEVICES: None. HEART / MEDIASTINUM: No significant abnormality. LUNGS / PLEURA: No significant pulmonary or pleural abnormality. No pneumo thorax. ADDITIONAL FINDINGS: No significant additional findings. IMPRESSION: 1. No acute findings. Signer Name: Fredy Farmer MD Signed: 07/21/2022 8:49 PM Workstation Name: [id number] Transcribed By: BC Dictated By: Fredy Farmer MD Electronically Authenticated By: Fredy Farmer MD Signed Date/Time: 07/21/222048 DD/ 47 TD/TT: - Medical Decision Making Patient with history of hypertension diabetes CAD, eczema. No acute distress at this time, patient denies shortness of breath no fevers no chills lung sounds are clear throughout chest x-ray: Normal infiltrates no opacities, oropharynx is patent no exudate no stridor no swelling no erythema. Plan DC to home, Tylenol as needed for pain. Hydrate as directed follow-up health department for COVID screening, follow-up primary care doctor as directed. Patient is currently alert oriented x3 amatory steady gait lung sounds are clear throughout patient with no acute distress.. Critical care attestation.: If time is entered above; I have spent that time in minutes in the direct care of this critically ill patient, excluding procedure time. ED Disposition Clinical Impression: Exposure to COVID-19 virus Disposition: HOME / SELF CARE / HOMELESS Is pt being admited?: No Does the pt Need Aspirin: No Condition: Stable Instructions: Prevent the Spread of COVID-19 if You Are Sick - CDC, Viral Respiratory Infection Additional Instructions: Take Tylenol as needed for aches and pains. Hydrate as directed. Wear mask as directed social distancing as directed, follow-up with health department for COVID screening, follow-up with your primary care doctor in 2 to 3 days. Return to emergency department should symptoms worsen. Prescriptions: Acetaminophen 650 mg PO Q6H PRN #30 cap PRN Reason: pain [facility] Days [facility] [Provider Group] - 3-5 Days Forms: Work/School Release Form(ED) Time of Disposition: 21:08
--- NOTE | 2022-07-21 20:54 | XRay Report ---
CHEST 2 VIEWS INDICATION / CLINICAL INFORMATION: cough covid exposure. FINDINGS: SUPPORT DEVICES: None. HEART / MEDIASTINUM: No significant abnormality. LUNGS / PLEURA: No significant pulmonary or pleural abnormality. No pneumothorax. ADDITIONAL FINDINGS: No significant additional findings. IMPRESSION: 1. No acute findings. Signer Name: Fredy Farmer MD Signed: 07/21/2022 8:49 PM Workstation Name: [id number]
[2022-07-21 21:41] VITALS: BP 168/88
== END 2022-07-21 21:41 | disposition home or self-care (01) ==
LOC: ED 17:10
DX: J02.9 Acute pharyngitis, unspecified (principal); R05.9 Cough, unspecified; Z20.822 Contact with and (suspected) exposure to COVID-19; I10 Essential (primary) hypertension; E11.9 Type 2 diabetes mellitus without complications; R56.9 Unspecified convulsions; Z91.09 Other allergy status, other than to drugs and biological substances; Z79.899 Other long term (current) drug therapy
CPT/HCPCS: 71046; 99283

== ENCOUNTER 2022-07-22 | Emergency (ER) | payer SELFPAY ==
[2022-07-22] MEDS ORDERED: ACETAMINOPHEN 500 MG TAB PO ONE (03:01)
--- NOTE | 2022-07-22 03:46 | XRay Report ---
XR ankle 3+V LT INDICATION / CLINICAL INFORMATION: ankle pain swelling COMPARISON: None available. AP, LATERAL, AND OBLIQUE VIEWS LEFT ANKLE FINDINGS: No fracture, dislocation, or significant soft tissue abnormality. IMPRESSION: 1. No significant abnormality of the left ankle. Signer Name: Tj Mahoney II, MD Signed: 07/22/2022 3:42 AM Workstation Name: [id number]
--- NOTE | 2022-07-22 04:13 | Emergency Department Report ---
ED Lower Extremity HPI - General Chief Complaint: Extremity Injury, Upper Stated Complaint: LEG SWELLING Time Seen by Provider: 07/22/22 03:00 Source: patient Mode of arrival: Ambulatory Limitations: No Limitations - History of Present Illness Initial Comments: Is a 62-year-old male who presents for left lateral ankle pain and swelling times tonight. Patient denies fall injury or trauma patient also seen earlier tonight for cough and malaise. Patient states homelessness. There are no abrasions lacerations or bruising. Patient is ambulatory with steady gait. Patient states pain at 3/10. Pain exacerbated by prolonged walking. Patient denies other injury or complaint at this time. MD Complaint: ankle injury - Related Data Home Medications Medication Instructions Recorded Confirmed Last Taken Insulin NPH Hum/Reg Insulin Hm 40 unit SQ DAILY 06/11/22 06/11/22 Unknown [HumuLIN 70/30 Kwikpen] metFORMIN [Glucophage] 500 mg PO BID 06/11/22 06/11/22 Unknown Previous Rx's Medication Instructions Recorded Last Taken Type Aspirin [Aspirin BABY CHEW TAB] 81 mg PO QDAY #30 06/13/22 Unknown Rx AtorvaSTATin [Lipitor] 40 mg PO QHS #30 tab 06/13/22 Unknown Rx Clopidogrel [Plavix] 75 mg PO QDAY #30 06/13/22 Unknown Rx Famotidine [Pepcid] 20 mg PO BID #30 tablet 06/13/22 Unknown Rx Metoprolol [Lopressor TAB] 50 mg PO BID #60 06/13/22 Unknown Rx Ondansetron [Zofran Odt] 4 mg PO Q8HR #15 tab.rapdis 06/13/22 Unknown Rx amLODIPine 5 mg PO DAILY #30 tablet 06/13/22 Unknown Rx lisinopriL [Lisinopril] 20 mg PO DAILY #30 06/13/22 Unknown Rx oxyCODONE /ACETAMINOPHEN [Percocet 1 tab PO Q6HR PRN #12 tablet 06/13/22 Unknown Rx 5/325] Acetaminophen 650 mg PO Q6H PRN #30 cap 07/21/22 Unknown Rx Acetaminophen 1,000 mg PO Q6H PRN #30 cap 07/22/22 Unknown Rx Allergies Allergy/AdvReac Type Severity Reaction Status Date / Time codeine AdvReac Mild Unknown Verified 07/21/22 17:26 ED Review of Systems ROS: Stated complaint: LEG SWELLING Other details as noted in HPI Constitutional: denies: chills, fever Eyes: denies: eye pain, eye discharge, vision change ENT: denies: ear pain, throat pain Respiratory: denies: cough, shortness of breath, wheezing Cardiovascular: denies: chest pain, palpitations Endocrine: no symptoms reported Gastrointestinal: denies: abdominal pain, nausea, diarrhea Genitourinary: denies: urgency, dysuria Musculoskeletal: other Skin: denies: rash, lesions Neurological: denies: headache, weakness, paresthesias Psychiatric: denies: anxiety, depression Hematological/Lymphatic: denies: easy bleeding, easy bruising ED Past Medical Hx - Past Medical History Hx Hypertension: Yes Hx Diabetes: Yes Hx Seizures: Yes Additional medical history: CAD, eczema - Social History Smoking Status: Never Smoker - Medications Home Medications: Home Medications Medication Instructions Recorded Confirmed Last Taken Type Insulin NPH Hum/Reg Insulin Hm 40 unit SQ DAILY 06/11/22 06/11/22 Unknown History [HumuLIN 70/30 Kwikpen] metFORMIN [Glucophage] 500 mg PO BID 06/11/22 06/11/22 Unknown History Aspirin [Aspirin BABY CHEW TAB] 81 mg PO QDAY #30 06/13/22 Unknown Rx AtorvaSTATin [Lipitor] 40 mg PO QHS #30 tab 06/13/22 Unknown Rx Clopidogrel [Plavix] 75 mg PO QDAY #30 06/13/22 Unknown Rx Famotidine [Pepcid] 20 mg PO BID #30 tablet 06/13/22 Unknown Rx Metoprolol [Lopressor TAB] 50 mg PO BID #60 06/13/22 Unknown Rx Ondansetron [Zofran Odt] 4 mg PO Q8HR #15 tab.rapdis 06/13/22 Unknown Rx amLODIPine 5 mg PO DAILY #30 tablet 06/13/22 Unknown Rx lisinopriL [Lisinopril] 20 mg PO DAILY #30 06/13/22 Unknown Rx oxyCODONE /ACETAMINOPHEN [Percocet 1 tab PO Q6HR PRN #12 tablet 06/13/22 Unknown Rx 5/325] Acetaminophen 650 mg PO Q6H PRN #30 cap 07/21/22 Unknown Rx Acetaminophen 1,000 mg PO Q6H PRN #30 cap 07/22/22 Unknown Rx ED Physical Exam - General Limitations: No Limitations General appearance: alert, in no apparent distress - Head Head exam: Present: normocephalic, normal inspection - Eye Eye exam: Present: normal appearance, EOMI Pupils: Present: normal accommodation - ENT ENT exam: Present: normal exam - Neck Neck exam: Present: normal inspection, full ROM. Absent: tenderness - Respiratory Respiratory exam: Present: normal lung sounds bilaterally. Absent: respiratory distress, wheezes - Cardiovascular Cardiovascular Exam: Present: regular rate, normal rhythm, normal heart sounds. Absent: systolic murmur, diastolic murmur, rubs, gallop - GI/Abdominal GI/Abdominal exam: Present: soft, normal bowel sounds. Absent: distended, tenderness, bruit, hernia - Rectal Rectal exam: Present: deferred - Extremities Exam Extremities exam: Present: normal inspection, full ROM, normal capillary refill. Absent: tenderness - Expanded Lower Extremity Exam Left Ankle exam: Present: full ROM, swelling. Absent: tenderness, abrasion, laceration, ecchymosis, deformity, crepidus, dislocation, erythema, anterior draw sign Foot/Toe exam: Present: full ROM. Absent: tenderness Neuro vascular tendon exam: Absent: pulse deficit, motor deficit, sensory d eficit, tendon deficit Gait: Positive: observed and normal - Back Exam Back exam: Present: normal inspection, full ROM. Absent: CVA tenderness (R), CVA tenderness (L) - Neurological Exam Neurological exam: Present: alert, oriented X3, CN II-XII intact, normal gait, reflexes normal. Absent: motor sensory deficit - Expanded Neurological Exam Expanded Patient oriented to: Present: person, place, time Speech: Present: fluid speech Motor strength exam: RUE: 5, LUE: 5, RLE: 5, LLE: 5 DTR: ankle (R): 1+, ankle (L): 1+ Best Eye Response ([place]): (4) open spontaneously Best Motor Response ([place]): (6) obeys commands Best Verbal Response ([place]): (5) oriented [place] Total: 15 - Psychiatric Psychiatric exam: Present: normal affect, normal mood - Skin Skin exam: Present: warm, dry, intact, normal color. Absent: rash ED Course Vital Signs 07/22/22 00:10 Temperature 98.3 F Pulse Rate 99 H Respiratory 18 Rate Blood Pressure 166/85 O2 Sat by Pulse 97 Oximetry ED Lower Extremity MDM - Radiology Data Radiology results: report reviewed, image reviewed XR ankle 3+V LT INDICATION / CLINICAL INFORMATION: ankle pain swelling COMPARISON: None available. AP, LATERAL, AND OBLIQUE VIEWS LEFT ANKLE FINDINGS: No fracture, dislocation, or significant soft tissue abnormality. IMPRESSION: 1. No significant abnormality of the left ankle. Signer Name: Robert Mahoney II, MD Signed: 07/22/2022 3:42 AM Workstation Name: [id number] Transcribed By: PAULINO Dictated By: ROBERT MAHONEY II, MD Electronically Authenticated By: ROBERT MAHONEY II, MD Signed Date/Time: 07/22/22341 DD/ 1 TD/TT: - Medical Decision Making X-rays negative for fracture subluxation or dislocation plan DC to home. Rice therapy, follow-up with primary care doctor in 2 to 3 days. Return to emergency department should symptoms worsen. Patient verbalizes agreement and understanding with same. Patient DC'd in stable condition at this time Critical care attestation.: If time is entered above; I have spent that time in minutes in the direct care of this critically ill patient, excluding procedure time. ED Disposition Clinical Impression: Left ankle strain Qualifiers: Encounter type: initial encounter Qualified Code(s): S96.912A - Strain of unspecified muscle and tendon at ankle and foot level, left foot, initial encounter Disposition: HOME / SELF CARE / HOMELESS Is pt being admited?: No Does the pt Need Aspirin: No Condition: Stable Instructions: Elastic Bandage and RICE Therapy Additional Instructions: Take medications as prescribed, ankle exercises as directed. Follow-up with your doctor in 2 to 3 days. Return to emergency department should symptoms worsen. Prescriptions: Acetaminophen 1,000 mg PO Q6H PRN #30 cap PRN Reason: pain Referrals: [facility] [Provider Group] - 3-5 Days Forms: Work/School Release Form(ED) Time of Disposition: 04:18
[2022-07-22 04:37] VITALS: BP 162/81
== END 2022-07-22 04:37 | disposition home or self-care (01) ==
LOC: ED
DX: S96.912A Strain of unspecified muscle and tendon at ankle and foot level, left foot, initial encounter (principal); I10 Essential (primary) hypertension; E11.9 Type 2 diabetes mellitus without complications; Z88.5 Allergy status to narcotic agent; Z79.899 Other long term (current) drug therapy; Z79.82 Long term (current) use of aspirin; X58.XXXA Exposure to other specified factors, initial encounter; Y93.89 Activity, other specified; Y92.89 Other specified places as the place of occurrence of the external cause; Y99.8 Other external cause status
CPT/HCPCS: 99283